=== PATIENT | female | born 1950 | race Caucasian/White ===

== ENCOUNTER 2018-06-17 12:18 | Outpatient (REF) | payer MEDICARE, BC, SELFPAY ==
--- NOTE | 2018-06-17 10:30 | PAPFT_PTH ---
PATIENT: Ángela Haines LOC: [facility] U#:[id number] AGE/SX: 67/F ROOM: RE06/17/[address]: SHELBY Dee : 1950 BED: DIS: 06/17/2018 SPEC #: [id number] RECD: 06/17/18 12:49 STATUS: VINODTigist REQ #: [id number] DIAMANTE: 06/17/18 10:[address]: Leslie Escobar DEPT: [facility] Cytology RECD BY: Makayla Calloway ENTERED: 06/17/18 12:50 SP TYPE: PAPFT OTHR DR: Jean Pierre Godfrey Tissues: 1 - CX/ENDOCX FOR PAP SMEARS Procedures: PAP THIN PREP/UVM Screening HPV DNA PROBE Comments: [id number]
== END 2018-06-17 12:38 ==
LOC: LBN 12:18
PROVIDERS: PCP Internal Medicine; Visit Provider Nurse Practitioner Family
DX: Z12.4 Encounter for screening for malignant neoplasm of cervix (principal); Z11.51 Encounter for screening for human papillomavirus (HPV)
CPT/HCPCS: 88142; 87624

== ENCOUNTER 2018-06-17 16:11 | Outpatient (CLI) | payer MEDICARE, BC, SELFPAY ==
--- NOTE | 2018-06-17 15:33 | DI.MAMMO_ITS ---
SYMPTOM/DIAGNOSIS: SCREENING MAMMOGRAMS: Mammograms were interpreted according to the usual protocol including computer analysis with CAD system, tomosynthesis and C view imaging. Comparison is made with exams from [facility] dated [id number]. The breasts are composed of heterogeneously dense fibroglandular tissue, breast density, Category C. No suspicious masses or suspicious microcalcifications are seen. There has been no significant change. IMPRESSION: Category 1, negative mammogram. Yearly screening mammography is recommended. [facility] ASSESSMENT OF FINDINGS: Negative. Category 1. Patient will receive a letter notifying them of these results. Bi-RADS category C. The breasts are heterogeneously dense, which may obscure small masses.
== END 2018-06-17 16:31 ==
PROVIDERS: PCP Internal Medicine; Visit Provider Nurse Practitioner Family
DX: Z12.31 Encounter for screening mammogram for malignant neoplasm of breast (principal)
CPT/HCPCS: 77063; 77067

== ENCOUNTER 2019-05-29 15:57 | Outpatient (REF) | payer MEDICARE, BC, SELFPAY ==
[2019-05-29 21:29] LABS: Abs Immature Grans 0.02 k/cumm (0.0-0.09); Absolute Basophil Count 0.04 k/cumm (0.0-0.2); Absolute Eosinophil Count 0.16 k/cumm (0.0-0.7); Absolute Lymphocyte Count 2.31 k/cumm (1.2-3.4); Absolute Monocyte Count 0.55 k/cumm (0.11-0.7); Absolute Neutrophil Count 3.92 k/cumm (1.2-6.7); Basophils % 0.6; Eosinophils % 2.3; HCT 40.1 % (36.0-46.0); HGB 13.2 g/dL (12.0-15.5); Immature Grans % 0.3 %; Mean Corp. HGB Concentration 32.9 g/dL (32.0-36.0); Mean Corpuscular Hemoglobin 29.8 pg (27.0-33.0); Mean Corpuscular Volume 90.5 fL (80-95); Mean Platelet Volume 11.8 fL (8.0-11.0); Monocytes % 7.9; Neutrophils % 55.9; Platelet Count 252 x1000/uL (130-400); RBC 4.43 m/cumm (4.00-5.20); RBC Distribution Width 13.1 % (11.7-14.6)
[2019-05-29 21:47] LABS: Hemoglobin A1C 5.9 % (3.8-5.6)
[2019-05-29 21:56] LABS: Calculated LDL 106 mg/dL (<100); Cholesterol 184 mg/dL (<200); HDL Cholesterol 45 mg/dL (40-60); TSH (W/Ref FT4) 0.75 uIU/mL (0.36-3.74); Triglyceride 167 mg/dL (<150)
[2019-05-31 10:40] LABS: Hepatitis C Ab w Rflx HCV PCR Negative (Negative)
== END 2019-05-29 16:17 ==
LOC: NCHCN 15:57
PROVIDERS: PCP Internal Medicine; Visit Provider Nurse Practitioner Family
DX: R61 Generalized hyperhidrosis (principal); G47.00 Insomnia, unspecified; R73.09 Other abnormal glucose; G60.9 Hereditary and idiopathic neuropathy, unspecified; R06.83 Snoring; Z11.59 Encounter for screening for other viral diseases; E66.9 Obesity, unspecified; E55.9 Vitamin D deficiency, unspecified
CPT/HCPCS: 80061; 82306; 86803; 83036; 84443; 85025

== ENCOUNTER 2019-06-19 03:11 | Outpatient (CLI) | payer MEDICARE, BC, SELFPAY ==
--- NOTE | 2019-06-19 10:00 | NS.NUTBLAN_ITS ---
Ángela comes to office for Medical Nutrition Therapy for obesity. PMH: obesity, perpheral neuropathy, osteoporosis, insomnia, fatigue. Did not want to be weighed today. Wt 06/05/19: 189 lbs BMI: 31. IBW: 145 lbs. Estimated needs for weight loss: 3075-0565 kcal, 70-80 g. protein. Diet recall indicates average calorie intake 1316-9422 kcal, 60-80 g protein. Reports that she has a treadmill but does not like to exercise. 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 She does not take any prescription medications. Assessment/Intervention: Ángela has gained weight as is typical over the life span however her caloric intake is 500-1000 kcal above recommended for weight loss. Ángela reports frequent hunger if she does not eat large meals. Our session reviewed ways to reduce intake and spread out meals in day and increase lean protein and vegetables for satiety. We also reviewed ways she can incorporate exercise into her regime. She is seeing a therapist to help her with her lifestyle changes as she has been frustrated at her inability of following through with goals. At this time, Ángela is struggling to attain her personal weight/health goals due to lack of motivation. Plan: reduce amount of simple carbohydrates, increase lean protein and vegetable intake, exercise daily 30-60 min daily, follow up in 1month. face to face: 60 minutes
== END 2019-06-19 03:31 ==
PROVIDERS: PCP Internal Medicine; Visit Provider Family Medicine
DX: E66.8 Other obesity (principal); Z68.31 Body mass index [BMI] 31.0-31.9, adult; Z71.3 Dietary counseling and surveillance
CPT/HCPCS: 97802

== ENCOUNTER 2019-10-31 00:57 | Outpatient (CLI) | payer MEDICARE, BC, SELFPAY ==
--- NOTE | 2019-10-31 16:30 | DI.MAMMO_ITS ---
EXAM: MAMMO SCREENING CLINICAL HISTORY: screening TECHNIQUE: Mammograms were interpreted according to the usual protocol including computer analysis w [facility] CAD system, tomosynthesis and C-view imaging. COMPARISON: FINDINGS: Breasts are heterogeneously dense. No dominant mass or clumped microcalcification is identified in e ither breast. In comparison with prior examinations including May 2018, there is question of a foc al area nodularity the retroareolar portion of the right breast seen on MLO view measuring about 5 mi llimeters in. Spot compression view and breast ultrasound recommended for further evaluation. No ot her significant change seen. IMPRESSION: Additional mammographic views of the right breast and right breast ultrasound requested as described above. Category: BI-RADS Cat 0 - Assessment Incomplete: Need additional imaging evaluation Breast Density - Category C - Heterogeneously dense
== END 2019-10-31 01:17 ==
PROVIDERS: PCP Internal Medicine; Visit Provider Nurse Practitioner Family
DX: Z12.31 Encounter for screening mammogram for malignant neoplasm of breast (principal); R92.2 Inconclusive mammogram
CPT/HCPCS: 77063; 77067

== ENCOUNTER 2019-11-02 01:18 | Outpatient (CLI) | payer MEDICARE, BC, SELFPAY ==
--- NOTE | 2019-11-02 | DI.MAMMO_ITS ---
EXAM: MG MAMMO SCREEN CALL BACK UNI CLINICAL HISTORY: F/U MAMMO, FOCAL NODULARITY RETROAREOLAR AREA RT BREAST TECHNIQUE: Mammograms were interpreted according to the usual protocol including computer analysis w [employer] CAD system, tomosynthesis and C-view imaging. COMPARISON: FINDINGS: Additional mammographic views the right breast and right breast ultrasound are interpreted in conjunc tion. These examinations were obtained to evaluate questionable area of nodularity projected in the retroareolar portion of the right breast in 12 o'clock position on MLO view of recent mammogram. Add itional mammographic views fail to show a discrete mass. Breast ultrasound shows no evidence of a ma ss or cyst. IMPRESSION: No specific evidence of malignancy at this time. Follow-up unilateral right breast mammogram recomme nded in 6 months. Category: BI-RADS Cat 3 - 6 month - Probably Benign Finding: Recommend follow-up mammography in 6 months Breast Density - Category C - Heterogeneously dense
== END 2019-11-02 01:38 ==
PROVIDERS: PCP Internal Medicine; Visit Provider Nurse Practitioner Family
DX: Z12.31 Encounter for screening mammogram for malignant neoplasm of breast (principal); R92.8 Other abnormal and inconclusive findings on diagnostic imaging of breast; R92.2 Inconclusive mammogram
CPT/HCPCS: 76642; 77063; 77067

== ENCOUNTER 2020-04-30 00:58 | Outpatient (CLI) | payer MEDICARE, BC, SELFPAY ==
--- NOTE | 2020-04-30 06:45 | DI.MAMMO_ITS ---
EXAM: MG MAMMO DIAGNOSTIC UNI CLINICAL HISTORY: 6 mo f/u right breast mammogram,R92.8. TECHNIQUE: Craniocaudal and mediolateral oblique Full Field Digital Mammography views of the right b reast with Computer Aided Diagnosis followed by Tomosynthesis. COMPARISON: Priors available for comparison. FINDINGS: Mammography/Tomosynthesis: Masses/Architectural Distortion: None seen. Microcalcifictions: No suspicious pleomorphic-type are seen. Skin Thickening/Nipple Retraction: None. IMPRESSION: 1. No evidence of malignancy is noted. 2. Unless there is more urgent need, follow-up screening mammography is recommended, as per [employer] guidelines. 3. The findings were discussed with the patient on the date of the examination. BI-RADS Category 1 - Negative Breast Density - Category C - Heterogeneously dense Breast density Category C or D implies that the patient has dense breast tissue. Dense breast tissue can make it harder to find cancer on a mammogram. Dense breast tissue is also associated with an incr eased risk of breast cancer. This information about the result of the mammogram report was provided to the patient to raise their awareness. Use this report when you speak with the patient about their risks for breast cancer, which includes their family history. At that time, you may recommend additional screening tests (Ultrasoun d or MRI) as these tests may add significant information. A negative radiographic report should not delay biopsy if a dominant or clinically suspicious mass is present. Up to ten percent of cancers are not identified on mammography. A negative report may reinforce clinical impression. Adenosis and dense breasts may obscure an underlying neoplasm. False positive reports average 6 to 10%. Patient will receive a letter notifying them of these results.
== END 2020-04-30 00:59 | disposition home or self-care (01) ==
LOC: DI 00:59
PROVIDERS: PCP Internal Medicine; Visit Provider Nurse Practitioner Family
DX: R92.8 Other abnormal and inconclusive findings on diagnostic imaging of breast (principal); R92.2 Inconclusive mammogram
CPT/HCPCS: 77061; 77065; G0279

== ENCOUNTER 2020-07-08 09:20 | Outpatient (CLI) | payer MEDICARE, BC, SELFPAY ==
--- NOTE | 2020-07-08 08:00 | DI.RAD_ITS ---
EXAM: XR KNEE RT 3V AP,LAT,LENIN CLINICAL HISTORY: knee pain. TECHNIQUE: 2D digital imaging was performed. COMPARISON: No exams were available for comparison FINDINGS: There is no evidence of fracture nor prominent joint effusion. No joint space narrowing. However, t here is a calcified loose intra-articular body located posteriorly, measuring approximately 1.3 x 0.8 cm. This is in the mid posterior intercondylar notch region. Visualize femoral condyles appear unremarkable. IMPRESSION: No fractures nor obvious degenerative changes in the medial and compartments. For, there is some rere rowing of patellofemoral compartment. Also loose intra-articular body posteriorly measuring 13 x 8 millimeters. There is no prominent join t effusion. DATA REPOSITORY: RADIATION DOSE DELIVERED:
--- NOTE | 2020-07-08 08:00 | DI.RAD_ITS ---
EXAM: XR KNEE LT 3V AP,LAT,LENIN CLINICAL HISTORY: knee pain. TECHNIQUE: 2D digital imaging was performed. COMPARISON: No exams were available for comparison FINDINGS: There is no evidence of fracture although there does appear to be a small amount of increased joint f luid. This may signify an internal derangement. No prominent joint space narrowing evident in the m edial lateral compartments. There appears to be some joint space narrowing in the patellofemoral com partment. No osseous lesions. Bone density is age-appropriate. IMPRESSION: DATA REPOSITORY: RADIATION DOSE DELIVERED:
--- NOTE | 2020-07-08 08:37 | DI.RAD_ITS ---
EXAM: XR KNEES MERCHANT ONLY CLINICAL HISTORY: Knee pain. TECHNIQUE: 2D digital imaging was performed. COMPARISON: CR XR KNEE RT 3V AP,LAT,LENIN from 07/08/2020 FINDINGS: Single merchant's view reveals significant narrowing of the patellofemoral compartments of both knees , approximately equal bilaterally. Three views of the left knee reveal no evidence of fracture. Mild increased amount of joint fluid. There is no narrowing of the medial lateral compartments. Narrowing of the patellofemoral compartmen t noted. There is no loose intra-articular body in the left knee evident IMPRESSION: 1. There is significant narrowing of both patellofemoral compartments, as seen on the merchant's view . 2. Mild degenerative changes in the left knee. There is no evidence of calcified loose intra-articul ar body in the left knee (as is seen in the opposite-right knee). No ominous osseous lesions DATA REPOSITORY: RADIATION DOSE DELIVERED:
== END 2020-07-08 09:21 | disposition home or self-care (01) ==
LOC: DIORS 09:20
PROVIDERS: PCP Internal Medicine; Referring Provider Nurse Practitioner Family; Visit Provider Student in an Organized Health Care Education/Training Program
DX: M17.11 Unilateral primary osteoarthritis, right knee (principal); M17.12 Unilateral primary osteoarthritis, left knee; M25.561 Pain in right knee; M25.562 Pain in left knee; M23.41 Loose body in knee, right knee
CPT/HCPCS: 20610; 73562; 73565; J1040

== ENCOUNTER 2020-10-07 11:56 | Outpatient (REF) | payer MEDICARE, BC, SELFPAY ==
--- NOTE | 2020-10-07 11:30 | PAPFT_PTH ---
PATIENT: Ángela Haines LOC: [facility] U#:[id number] AGE/SX: 70/F ROOM: RE10/07/[address]: SHELBY Dee : 1950 BED: DIS: 10/07/2020 SPEC #: [id number] RECD: 10/07/20 12:49 STATUS: JESSICA REQ #: [id number] DIAMANTE: 10/07/20 11:[address]: Leslie Escobar DEPT: [facility] Cytology RECD BY: Makayla Calloway ENTERED: 10/07/20 12:49 SP TYPE: PAPFT OTHR DR: Jean Pierre Godfrey Tissues: 1 - CX/ENDOCX FOR PAP SMEARS Procedures: PAP THIN PREP/UVM Screening HPV DNA PROBE Comments: [id number]
== END 2020-10-07 11:57 | disposition home or self-care (01) ==
LOC: LBN 11:56
PROVIDERS: PCP Internal Medicine; Visit Provider Nurse Practitioner Family
DX: Z12.4 Encounter for screening for malignant neoplasm of cervix (principal); Z77.9 Other contact with and (suspected) exposures hazardous to health; Z11.51 Encounter for screening for human papillomavirus (HPV); Z01.419 Encounter for gynecological examination (general) (routine) without abnormal findings
CPT/HCPCS: 88142; 87624

== ENCOUNTER 2020-10-31 01:53 | Outpatient (CLI) | payer MEDICARE, BC, SELFPAY ==
--- NOTE | 2020-10-31 11:00 | DI.MAMMO_ITS ---
Exam(s) MAMMO SCREENING EXAM: MAMMO SCREENING CLINICAL HISTORY: screening,Z12.39. TECHNIQUE: Bilateral full field digital CC and MLO mammographic images were obtained with 3D tomosyn thesis and utilizing computer aided detection (CAD). COMPARISON: Prior mammograms dating back to 2013, the most recent being October 2019 and diagnostic r ight breast mammogram April 2020. Prior breast ultrasound performed October 2019 was reviewed FINDINGS: Fibroglandular tissue is again noted be moderately dense, this decreasing the sensitivity of the mamm ogram for finding hidden underlying lesions. There are no new obvious spiculated masses nor malignant-appearing microcalcification groups. There is no significant architectural distortion nor skin thickening-retraction. IMPRESSION: Dense bilateral fibroglandular tissue. No obvious radiographic evidence of malignancy. Given the density of this patient's fibroglandular tissue I recommend bilateral complete breast scree luis ultrasound. BI-RADS Category 0 - Assessment Incomplete: Need additional imaging evaluation Breast Density - Category C - Heterogeneously dense Breast density Category C or D implies that the patient has dense breast tissue. Dense breast tissue can make it harder to find cancer on a mammogram. Dense breast tissue is also associated with an incr eased risk of breast cancer. This information about the result of the mammogram report was provided to the patient to raise their awareness. Use this report when you speak with the patient about their risks for breast cancer, which includes their family history. At that time, you may recommend additional screening tests (Ultrasoun d or MRI) as these tests may add significant information. A negative radiographic report should not delay biopsy if a dominant or clinically suspicious mass is present. Up to ten percent of cancers are not identified on mammography. A negative report may reinforce clinical impression. Adenosis and dense breasts may obscure an underlying neoplasm. False positive reports average 6 to 10%. Patient will receive a letter notifying them of these results.
== END 2020-10-31 02:13 ==
PROVIDERS: PCP Internal Medicine; Visit Provider Nurse Practitioner Family
DX: Z12.31 Encounter for screening mammogram for malignant neoplasm of breast (principal); R92.8 Other abnormal and inconclusive findings on diagnostic imaging of breast
CPT/HCPCS: 77063; 77067

== ENCOUNTER → 2020-11-25 08:55 | Outpatient (BNVA) | payer MEDICARE, BC, SELFPAY | PROVIDERS: PCP Internal Medicine; Referring Provider Internal Medicine; Visit Provider Student in an Organized Health Care Education/Training Program | DX: M17.0 Bilateral primary osteoarthritis of knee (principal) | CPT/HCPCS: 99214 ==

== ENCOUNTER 2020-12-06 04:38 | Outpatient (CLI) | payer MEDICARE, BC, SELFPAY ==
--- NOTE | 2020-12-06 | DI.US_ITS ---
Exam(s) US BREAST RT COMPLETE EXAM: US BREAST RT COMPLETE CLINICAL HISTORY: F/U MAMMO 10/31/20, DENSE AMMON BREAST TISSUE TECHNIQUE: Ultrasound right breast performed using standard protocol. COMPARISON: No exams were available for comparison FINDINGS: No solid or cystic masses, hypoechoic foci, areas of abnormal shadowing, or areas of skin thickening. Normal axillary lymph nodes. IMPRESSION: No sonographically suspicious finding. BI-RADS Category 1 - Negative DATA REPOSITORY:
--- NOTE | 2020-12-06 | DI.US_ITS ---
Exam(s) US BREAST LT COMPLETE EXAM: US BREAST LT COMPLETE CLINICAL HISTORY: F/U MAMMO 10/31/20, DENSE AMMON TISSUE TECHNIQUE: Ultrasound left breast performed using standard protocol. COMPARISON: US US BREAST RT COMPLETE from 12/06/2020 US US BREAST RT COMPLETE from 12/06/2020 FINDINGS: No solid masses, hypoechoic foci, areas of abnormal shadowing, or areas of skin thickening. 3 millim eters cyst 1 o'clock position 4 cm from the nipple. Normal appearing axillary lymph nodes. IMPRESSION: No sonographically suspicious finding. BI-RADS Category 2 - Benign Findings DATA REPOSITORY:
== END 2020-12-06 04:58 ==
PROVIDERS: PCP Internal Medicine; Visit Provider Nurse Practitioner Family
DX: R92.8 Other abnormal and inconclusive findings on diagnostic imaging of breast (principal)
CPT/HCPCS: 76642

== ENCOUNTER → 2021-02-25 12:55 | Outpatient (BNVA) | payer MEDICARE, BC, SELFPAY | PROVIDERS: PCP Internal Medicine; Referring Provider Internal Medicine | DX: Z01.818 Encounter for other preprocedural examination (principal); M17.0 Bilateral primary osteoarthritis of knee ==

== ENCOUNTER 2021-03-03 02:47 | Outpatient (CLI) | payer MEDICARE, BC, SELFPAY ==
[2021-03-03 09:48] LABS: HCT 40.3 % (36.0-46.0); HGB 12.8 g/dL (11.2-15.7); MCH 29.2 pg (27.0-33.0); MCHC 31.8 % (32.0-36.0); MPV 10.5 fL (8.0-11.0); Platelet Count 326 10^3/uL (130-400); RBC 4.38 10^6/uL (3.93-5.22); RDW 12.6 % (11.7-14.6); RDW-SD 42.6 fL; WBC 8.15 10^3/uL (4.4-10.8)
[2021-03-03 10:40] LABS: Anion Gap 11.3 mmol/L (3-11); BUN 25 mg/dL (7-18); CO2 28.7 mmol/L (21.0-32.0); CREATININE 0.9 mg/dL (0.55-1.02); Calcium 8.8 mg/dL (8.5-10.1); Chloride 105 mmol/L (98-107); Glucose 110 mg/dL (74-106); Potassium 3.7 mmol/L (3.5-5.1); Sodium 145 mmol/L (136-145)
== END 2021-03-03 02:48 | disposition home or self-care (01) ==
LOC: LBO 02:47
PROVIDERS: PCP Internal Medicine; Visit Provider Student in an Organized Health Care Education/Training Program
DX: M17.0 Bilateral primary osteoarthritis of knee (principal); Z01.818 Encounter for other preprocedural examination
CPT/HCPCS: 36415; 80048; 85027

== ENCOUNTER 2021-03-03 03:10 | Outpatient (CLI) | payer MEDICARE, BC, SELFPAY ==
[2021-03-03 10:27] LABS: Source Nasal/Nares
[2021-03-03 14:19] LABS: COVID-19 PCR Negative (Negative)
== END 2021-03-03 03:11 | disposition home or self-care (01) ==
LOC: LBO 03:11
PROVIDERS: PCP Internal Medicine; Visit Provider Student in an Organized Health Care Education/Training Program
DX: Z20.822 Contact with and (suspected) exposure to COVID-19 (principal)
CPT/HCPCS: 36415; 80048; 85027; 87635

== ENCOUNTER 2021-03-05 07:56 | Day surgery (SDC) | payer MEDICARE, BC, SELFPAY ==
[2021-03-05] VITALS (11 sets, daily range): BP systolic 125–178; BP diastolic 71–93; PULSE 69–88; RESP 11–20; TEMP 36–36.9; O2SAT 93–98; BMI 31.8
--- NOTE | 2021-03-05 07:42 | W.PM.DS.N ---
Documented by User: GREGORY Cope 03/05/21 07:45 DS: Diagnosis Discharge Diagnosis (1) 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: Status: Acute Discharge Plan Disposition Patient Disposition: HOME Condition: Stable Discharge Details Reason For Visit: Bilateral Patella Femoral Replacements Attending Provider: Ernesto Valero Primary Care Provider: Jean Pierre Godfrey Home Meds and New Rx's Prescriptions: New celecoxib [Celebrex] 200 mg capsule 200 mg PO BID Qty: 60 RF: 0 aspirin 81 mg tablet,delayed release (DR/EC) 81 mg PO BID Qty: 60 RF: 0 pantoprazole [Protonix] 40 mg tablet,delayed release (DR/EC) 40 mg PO DAILY Qty: 30 RF: 0 gabapentin 300 mg capsule 300 mg PO QHS Qty: 14 RF: 0 acetaminophen 500 mg capsule 1,000 mg PO Q8H PRN PRNQty: 90 RF: 0 oxycodone 5 mg tablet 5 mg PO Q4H PRNQty: 18 RF: 0 Continued acetylcysteine [NAC] 600 mg capsule 600 mg PO DAILY RF: 0 cannabidiol 100 mg/mL solution See Rx Instructions PO BID RF: 0 estradiol [Estrace] 0.01 % (0.1 mg/gram) cream 1 g vaginal .COMPLEX Qty: 42.5 RF: 4 magnesium chloride 64 mg tablet,delayed release (DR/EC) 64 mg PO DAILY RF: 0 cholecalciferol (vitamin D3) [Vitamin D3] 1,000 UNIT capsule 1,000 unit PO DAILY RF: 0 Discontinued aspirin 81 mg capsule 81 mg PO DAILY RF: 0 Discharge Instructions Additional Instructions: Total Knee Discharge Instructions Activity: The most important activity is to walk. You should try to take short walks a few times a day. It is important that when resting you work on keeping the knee straight. Avoid putting a pillow behind the knee as this will encourage flexion. Work on range of motion exercises as provided by Physical Therapy. - Start outpatient physical therapy around 2 weeks. - You should wear the CRAIG hose on both legs for 2 weeks. You may remove these at night. You may also use any compression sock in place of the CRAIG hose. - Utilize [employer] to review exercises, see videos on exercises and obtain basic information pertaining to your surgery and your recovery. Dressing: Remove the Thom wrap by 2 days after your surgery and put on the CRAIG stocking given to you from the hospital. Keep the surgical dressing (underneath the THOM wrap) in place for at least one week although it may stay in place until your follow-up. If you remove the dressing, replace with light gauze and tape. The wound and dressing may get wet after 3 days but avoid soaking the dressing or otherwise it will need to be changed. Many people prefer covering the dressing with cling wrap (saran wrap) to minimize it from getting soaked. If it gets wet, just pat dry. If it starts to peel off then it will need to be changed. Medications: - You should take Tylenol and anti-inflammatory Celebrex as your primary pain control medications. If the Celebrex is too expensive or not covered, please call the office for another alternative (Advil/Ibuprofen or Naproxen/Aleve) - You have been prescribed a stronger pain medication Oxycodone for breakthrough pain, take as needed as prescribed. - You have also been prescribed a stomach acid reduction agent Pantoprozole to help reduce stomach acid and reflux. - You have been prescribed Gabapentin to take at night for restlessness and nerve pain. - You will be taking Aspirin 81mg twice a day for DVT prevention unless instructed otherwise. - If you have constipation you should take Colace or Miralax (both judp-qzp-ejtzpza). It takes most people 3-4 days to have a bowel movement. Follow-up: 2 weeks If you have any acute concerns or questions, please do not hesitate to contact the office at [phone]. You may contact Dr. Valero with any questions after hours through the hospital at [phone] or on his cell phone at [phone]. 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) Surgical History Bone spur of posterior portion of right calcaneus around 18 yo History of salpingectomy for ectopic Hx of hernia repair ?ventral hernia Previous section x 2 Status post right rotator cuff repair 2010 Status post tonsillectomy late 1990s Family History Mother Colon cancer Father Alzheimers disease Valvular heart disease Social History Smoking/Tobacco Use Status: Never Smoking risk assessment performed?: Yes Alcohol Intake: never Drug use: Daily Substance use type: marijuana Details: makes edibles; CBD oil daily 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 Documented by User: Ernesto Valero MD 03/05/21 14:29 Discharge Plan Disposition Patient Disposition: HOME Condition: Stable Discharge Details Reason For Visit: Bilateral Patella Femoral Replacements Attending Provider: Ernesto Valero Primary Care Provider: Jean Pierre Godfrey [place] Meds and New Rx's Prescriptions: New celecoxib [Celebrex] 200 mg capsule 200 mg PO BID Qty: 60 RF: 0 aspirin 81 mg tablet,delayed release (DR/EC) 81 mg PO BID Qty: 60 RF: 0 pantoprazole [Protonix] 40 mg tablet,delayed release (DR/EC) 40 mg PO DAILY Qty: 30 RF: 0 gabapentin 300 mg capsule 300 mg PO QHS Qty: 14 RF: 0 acetaminophen 500 mg capsule 1,000 mg PO Q8H PRN PRNQty: 90 RF: 0 oxycodone 5 mg tablet 5 mg PO Q4H PRNQty: 18 RF: 0 Continued acetylcysteine [NAC] 600 mg capsule 600 mg PO DAILY RF: 0 cannabidiol 100 mg/mL solution See Rx Instructions PO BID RF: 0 estradiol [Estrace] 0.01 % (0.1 mg/gram) cream 1 g vaginal .COMPLEX Qty: 42.5 RF: 4 magnesium chloride 64 mg tablet,delayed release (DR/EC) 64 mg PO DAILY RF: 0 cholecalciferol (vitamin D3) [Vitamin D3] 1,000 UNIT capsule 1,000 unit PO DAILY RF: 0 Discontinued aspirin 81 mg capsule 81 mg PO DAILY RF: 0 Discharge Instructions Additional Instructions: Total Knee Discharge Instructions Activity: The most important activity is to walk. You should try to take short walks a few times a day. It is important that when resting you work on keeping the knee straight. Avoid putting a pillow behind the knee as this will encourage flexion. Work on range of motion exercises as provided by Physical Therapy. - Start outpatient physical therapy around 2 weeks. - You should wear the CRAIG hose on both legs for 2 weeks. You may remove these at night. You may also use any compression sock in place of the CRAIG hose. - Utilize [employer] to review exercises, see videos on exercises and obtain basic information pertaining to your surgery and your recovery. Dressing: Remove the Thom wrap by 2 days after your surgery and put on the CRAIG stocking given to you from the hospital. Keep the surgical dressing (underneath the THOM wrap) in place for at least one week although it may stay in place until your follow-up. If you remove the dressing, replace with light gauze and tape. The wound and dressing may get wet after 3 days but avoid soaking the dressing or otherwise it will need to be changed. Many people prefer covering the dressing with cling wrap (saran wrap) to minimize it from getting soaked. If it gets wet, just pat dry. If it starts to peel off then it will need to be changed. Medications: - You should take Tylenol and anti-inflammatory Celebrex as your primary pain control medications. If the Celebrex is too expensive or not covered, please call the office for another alternative (Advil/Ibuprofen or Naproxen/Aleve) - You have been prescribed a stronger pain medication Oxycodone for breakthrough pain, take as needed as prescribed. - You have also been prescribed a stomach acid reduction agent Pantoprozole to help reduce stomach acid and reflux. - You have been prescribed Gabapentin to take at night for restlessness and nerve pain. - You will be taking Aspirin 81mg twice a day for DVT prevention unless instructed otherwise. - If you have constipation you should take Colace or Miralax (both bafd-fly-dcaizau). It takes most people 3-4 days to have a bowel movement. Follow-up: 2 weeks If you have any acute concerns or questions, please do not hesitate to contact the office at [phone]. You may contact Dr. Valero with any questions after hours through the hospital at [phone] or on his cell phone at [phone]. Stand Alone Forms: Anesthesia Discharge Inst., Vandanas.Nerve Block Instructions Referrals: Ernesto Valero MD [ [facility] STAFF PHYSICIAN] - Equipment/Supplies: Walker Activity:: Activity as Tolerated Remove Dressings/Wound Care:: Do Not Remove Shower/Bathe:: 72 hours Diet:: As Tolerated Discharge Orders Discharge Orders: Discharge Order (Routine); Ordered 03/05/21 Ordered By: Ernesto Valero DS: Summary Time Spent with Patient providing and/or coordinating discharge services: Less than 30 minutes Status at Discharge Functional status at discharge: uses cane/walker Overall status at discharge: patient is progressing back to baseline Mental Status: mental status grossly normal Speech and Movement: speech and movement normal Mood: congruent mood Affect: normal affect Exam Psych Mental Status: mental status grossly normal Speech and Movement: speech and movement normal Mood: congruent mood Affect: normal affect [facility] Active Problem List 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 (Acute) Neuropathy (Acute) 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) Surgical History Bone spur of posterior portion of right calcaneus around 18 yo History of salpingectomy for ectopic Hx of hernia repair ?ventral hernia Previous section x 2 Status post right rotator cuff repair 2009 Status post tonsillectomy late 1990s Family History Mother Colon cancer Father Alzheimers disease Valvular heart disease Social History Smoking/Tobacco Use Status: Never Smoking risk assessment performed?: Yes Alcohol Intake: never Drug use: Daily Substance use type: marijuana Details: makes edibles; CBD oil daily 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
[2021-03-05] MEDS: Acetaminophen 500 MG TAB 1000 MG PO ×2 (08:29→15:39)
[2021-03-05] MEDS: Celecoxib 200 MG CAP 400 MG PO (08:29)
[2021-03-05] MEDS: Lactated Ringers 1,000 ML 80 ML IV (08:30)
[2021-03-05] MEDS: Gabapentin 300 MG CAP PO (08:31)
--- NOTE | 2021-03-05 08:52 | W.ANESPRE ---
General Info Date of Service Date Performed: 03/05/21 Height: 5 ft 5 in Weight: 86.8 kg Body Mass Index (BMI): 31.8 Surgical Procedure: Operation Date: 03/05/21 10:30 Proposed Procedures Side Surgeon p Knee Patellofemoral Replacement Bilateral Ernesto Valero MD Meds Allergies and Home Medications Allergies Allergy/AdvReac Type Severity Reaction Status Date / Time No Known Allergies Allergy Verified 03/05/21 07:49 Home Medication Medication Instructions Recorded cholecalciferol (vitamin D3) 1,000 unit PO DAILY 10/16/15 [Vitamin D3] cannabidiol 100 mg/mL oral solution See Rx Instructions PO BID ml 06/17/18 estradiol 1 g VAGINAL .COMPLEX #42.5 g 10/07/20 acetylcysteine 600 mg capsule 600 mg PO DAILY 11/25/20 magnesium chloride 64 mg 64 mg PO DAILY 02/25/21 (magnesium chloride) tablet,delayed release acetaminophen 1,000 mg PO Q8H PRN PRN #90 cap 03/05/21 aspirin 81 mg PO BID #60 tab 03/05/21 celecoxib [Celebrex] 200 mg PO BID #60 cap 03/05/21 gabapentin 300 mg PO QHS #14 cap 03/05/21 oxycodone 5 mg PO Q4H PRN #18 tab 03/05/21 pantoprazole [Protonix] 40 mg PO DAILY #30 tab 03/05/21 Current Visit Medications: Current Medications Generic Name Dose Route Start Last Admin Trade Name Freq PRN Reason Stop Dose Admin Acetaminophen 1,000 mg 03/05/21 06:00 03/05/21 08:29 Acetaminophen 500 Mg Tab PO 03/05/21 16:00 1,000 mg PREOP ALEKSEY Administration Acetaminophen 1,000 mg 03/05/21 14:00 Acetaminophen 500 Mg Tab PO TID ALEKSEY Aspirin 81 mg 03/05/21 20:00 Aspirin E.C. 81 Mg Tabec PO BID ALEKSEY Celecoxib 400 mg 03/05/21 06:00 03/05/21 08:29 Celecoxib 200 Mg Cap PO 03/05/21 16:00 400 mg PREOP ALEKSEY Administration Celecoxib 200 mg 03/05/21 20:00 Celecoxib 200 Mg Cap PO BID ALEKSEY Docusate Sodium 100 mg 03/05/21 07:41 Docusate Sodium 100 Mg Cap PO BID PRN PRN Constipation Gabapentin 300 mg 03/05/21 22:00 Gabapentin 300 Mg Cap PO HS ALEKSEY Gabapentin 300 mg 03/05/21 07:00 03/05/21 08:31 Gabapentin 300 Mg Cap PO 03/05/21 23:59 300 mg PREOP ALEKSEY Administration Hydromorphone HCl 0.5 mg 03/05/21 07:41 Hydromorphone 2 Mg/Ml Vial IVP Q2H PRN PRN Tranexamic Acid 1,000 mg/ 60 mls @ 360 mls/hr 03/05/21 06:00 Sodium Chloride IV 03/05/21 16:00 PREOP ALEKSEY Tranexamic Acid 1,000 mg/ 60 mls @ 360 mls/hr 03/05/21 06:00 Sodium Chloride IV 03/05/21 16:00 DIRECTED ALEKSEY Ringer's Solution 1,000 mls @ 80 mls/hr 03/05/21 06:00 03/05/21 08:30 IV 04/03/21 23:59 80 mls/hr INFUSION ALEKSEY Administration Cefazolin Sodium/Dextrose 2 gm in 50 mls @ 100 mls/hr 03/05/21 06:00 Ancef Duplex IVPB 04/03/21 23:59 PREOP ALEKSEY Cefazolin Sodium/Dextrose 1 gm in 50 mls @ 100 mls/hr 03/05/21 18:00 Ancef Duplex IVPB 03/06/21 10:29 Q8H ALEKSEY IV Miscellaneous Supplies 1 each 03/05/21 06:00 Iv Access IV 04/03/21 23:59 DIRECTED ALEKSEY Ondansetron HCl 4 mg 03/05/21 07:41 Ondansetron 4 Mg/2 Ml Vial IVP Q6H PRN PRN Nausea Oxycodone HCl 0 mg 03/05/21 07:41 Oxycodone 5 Mg Tab PO Q3H PRN PRN Pain Pantoprazole Sodium 40 mg 03/06/21 08:00 Pantoprazole 40 Mg Tabcr PO DAILY@0730 ALEKSEY Sodium Chloride 0 ml 03/05/21 06:00 Normal Saline Flush 10 Ml Syr IV 04/03/21 23:59 PRN PRN Sodium Chloride 0 ml 03/05/21 06:00 Normal Saline 10 Ml Vial IJ 04/03/21 23:59 DIRECTED PRN Sterile Water 0 ml 03/05/21 06:00 Water,Injection,Sterile 10 Ml Vial IJ 04/03/21 23:59 DIRECTED PRN PFSH Active Problems Active Problems: Problem Status Onset Code 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 M17.0 Neuropathy G62.9 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 Medical History Active Problem List 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 (Acute) Neuropathy (Acute) 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) Surgical History Surgical History Bone spur of posterior portion of right calcaneus around 18 yo History of salpingectomy for ectopic Hx of hernia repair ?ventral hernia Previous section x 2 Status post right rotator cuff repair 2010 Status post tonsillectomy late Tobacco Smoking/Tobacco Use Status: Never Alcohol Alcohol Intake: never Substance Use Substance use: Daily Substance use type: marijuana Details: makes edibles; CBD oil daily Vital Signs and Lab Results Vital Signs Most Recent Vital Signs in EMR: Most Recent Vital Signs Temp Pulse Resp BP Pulse Ox 36.6 C 88 18 147/78 H 97 03/05/21 08:00 03/05/21 08:00 03/05/21 08:00 03/05/21 08:00 03/05/21 08:00 Lab Results Blood Type / Crossmatch: No Data to Display Complete Blood Count: White Blood Count 8.15 10^3/uL (4.4-10.8) 03/03/21 09:23 03/03/21 Red Blood Count 4.38 10^6/uL (3.93-5.22) 03/03/21 09:23 03/03/21 Hemoglobin 12.8 g/dL (11.2-15.7) 03/03/21 09:23 03/03/21 Hematocrit 40.3 % (36.0-46.0) 03/03/21 09:23 03/03/21 Platelet Count 326 10^3/uL (130-400) 03/03/21 09:23 03/03/21 Complete Metabolic Panel: Sodium Level 145 mmol/L (136-145) 03/03/21 09:23 03/03/21 Potassium Level 3.7 mmol/L (3.5-5.1) 03/03/21 09:23 03/03/21 Chloride Level 105 mmol/L (98-107) 03/03/21 09:23 03/03/21 Carbon Dioxide Level 28.7 mmol/L (21.0-32.0) 03/03/21 09:23 03/03/21 Blood Urea Nitrogen 25 mg/dL (7-18) H 03/03/21 09:23 03/03/21 Creatinine 0.9 mg/dL (0.55-1.02) 03/03/21 09:23 03/03/21 Estimated GFR/1.73 m2 >= 60.00 (mL/min/1.73m2) 03/03/21 09:23 03/03/21 Calcium Level 8.8 mg/dL (8.5-10.1) 03/03/21 09:23 03/03/21 Glucose Level 110 mg/dL (74-106) H 03/03/21 09:23 03/03/21 Liver Function Panel: No Data to Display Coagulation Panel: No Data to Display Cardiac Panel: No Data to Display Arterial Blood Gas: No Data to Display Venous Blood Gas: No Data to Display Pancreas Panel: No Data to Display Thyroid Panel: No Data to Display Infectious Disease: Coronavirus (COVID-19)(PCR) Negative (Negative) 03/03/21 10:07 03/03/21 Coronavirus 2019 Source Nasal/Nares 03/03/21 10:07 03/03/21 Blood Cultures: No Data to Display Toxicology Panel: No Data to Display Anesthesia Assessment and Plan Anesthesia History Personal History: No History of Anesthesia Complications Family History: No Family History of Anesthesia Complications Exercise Tolerance Exercise Tolerance: Metabolic Equivalents>4 Pertinent Negatives Pertinent Negatives: No Symptoms of GERD, No Major Cardiovascular Symptoms or Complaints, No Major Pulmonary Symptoms or Complaints and No History of CVA/TIA Cardiac & Pulmonary Exam Cardiac Exam: Normal S1/S2 Heart Sounds Pulmonary Exam: Clear Bilateral Breath Sounds Implantable Cardiac Device Does patient have a Pacemaker or an ICD?: No Airway Exam Known Difficult Airway: No Mallampati Class: 3 Mouth Opening: Normal (> 3cm) Thyromental Distance: Greater than 3 cm Neck Range of Motion: Full ROM Neck Circumference: Normal Teeth Condition: Normal Dentition ASA Classification ASA Score: ASA 2 Emergency Case?: No NPO Status NPO Status: NPO Clears >2 hours, Solids >8 hours Anesthesia Plan Resuscitation Status: Full Code Anesthesia Technique: Spinal Anesthesia Airway Planned: Natural Airway Pain Management: Surgeon and patient request nerve block Monitors Used: Standard Monitors
--- NOTE | 2021-03-05 10:09 | W.ANESNERVE ---
Nerve Block Single Injection Procedure Date and Time Date Performed: 03/05/21 Procedure Start: 10:00 Location Where Procedure Performed Procedure Location: Day Surgery Unit Reason Performed: Postoperative Analgesia Requesting Provider: Ernesto Valero Timeout Performed Timeout Performed: Yes Monitoring Used ECG, Blood Pressure, SpO2 and ETCO2 Sterility Sterility: Hand Hygiene, Surgical Cap, Surgical Mask, Sterile Gloves and Chlorhexidine Sedation Given During Procedure Sedation Given (Indicate Dose Given): Versed IV Dose:: 4 mg Patient Mental Status Patient Mental Status: Sedate with meaningful communication Nerve Block 1st Nerve Block: Laterality: Bilateral Block Type: Adductor Canal Needle / Catheter Used: 100mm SonoPlex II Local Anesthetic Bolus (Indicate Dose Given): Lidocaine used for local infiltration of skin, Injected in 3-5ml increments after negative blood aspiration, Half of Total block solution given into each side and Bupivacaine 0.25% Dose:: 30 ml Additives (Indicate Dose Given): None Ultrasound: Sterile probe cover and gel used Ultrasound Image Saved?: Yes Nerve Stimulator: Not Used Paresthesia: None Post Procedure Pain score (0-10): 0 Procedure Tolerated: No Complications Procedure Outcome: Successful Performed By: Makenzie Alaniz Supervised By: Concetta Cat
[2021-03-05] MEDS: ceFAZolin 2 GM/50 ML BAG IVPB (10:58)
[2021-03-05] MEDS: Bupivacaine 0.25% Pres-Free 30 ML VIAL (12:15)
[2021-03-05] MEDS: Ketorolac 30 MG/ML VIAL (12:15)
--- NOTE | 2021-03-05 15:10 | IN_ITS ---
Date of service: 03/05/21 Time of Service: 15:10 PT Notes Visit Reasons: Bilateral Patella Femoral Replacements Physical Therapy Day Surgery Initial Evaluation Date: 03/05/2021 Referring Doctor: GREGORY Cope PT Orders: PT CONSULT: Status post Ortho surgery Precautions: WBAT on B LE with AD. Patient Profile/Admitting Diagnosis: Ángela is a 70-year-old female with osteoarthritis of bilateral patellofemoral joints and is status post bilateral patella femoral joint replacements on postoperative day 0. PMHX: Active Problem List (Updated 02/25/21 @ 13:21 by Arabella Moran) 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 (Acute) Neuropathy (Acute) 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) Surgical History (Updated 02/25/21 @ 13:25 by Arabella Moran) Bone spur of posterior portion of right calcaneus around 18 yo History of salpingectomy for ectopic Hx of hernia repair ?ventral hernia Previous section x 2 Status post right rotator cuff repair 2009 Status post tonsillectomy late Social History/Home Situation: Lives with in a private home with 3 steps to enter with a rail on 1 side. Independent with all aspects of the notes prior to surgery. 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 Equipment Owned/DME: None Subjective: Agreeable to PT consult. Reports dizziness but denies chest pain as well headache. Complains of 8?9/10 pain on the right knee but is agreeable to walking to see how weight bearing immobilization helps with the pain. Objective: General Observation: WILY wraps to BLE. Seated on chair. Cryocuff to both knees. Mental Status: Alert and oriented x4 Pain: 8?9/10 pain on the right knee in 5?8/10 pain on the left ROM: Right Lower Extremity: Hip flexion WFL. Hip abduction WFL. Knee flexion 10 degrees to 80 degrees. Knee extension -10 degrees with pain at end of range. Ankle dorsiflexion WFL. Ankle plantarflexion WFL. Left Lower Extremity: Hip flexion WFL. Hip abduction WFL. Knee flexion 0 degrees to 80 degrees. Knee extension 80 degrees to 0 degrees with pain at end of range. Ankle dorsiflexion WFL. Ankle plantarflexion WFL. Strength: Right Lower Extremity: Hip flexors 5/5. Hip abductors 4/5. Knee flexors 3-/5. Knee extensors 3-/5. Ankle dorsiflexors 5/5. Ankle plantarflexors 5/5. Left Lower Extremity: Hip flexors 5/5. Hip abductors 4/5. Knee flexors 3-/5. Knee extensors 3-/5. Ankle dorsiflexors 5/5. Ankle plantarflexors 5/5. Sensation: Intact as to pinprick pressure in bilateral lower extremities. Bed Mobility/Transfers: Supine to sit supervision Sit to stand standby assist Stand to sit standby assist Bed to chair standby assist Gait: Instructed patient with level surface ambulation using front wheeled walker with step through gait pattern requiring only standby assist despite patient reporting 8?9/10 pain on the right and 5?6/10 pain on the left knee and dizziness. No LOB. No shortness of breath. Minimal cueing provided to ensure patient about bending at both knees during swing phase of gait. Stairs: Negotiated up and down 6 x 4 inch steps and 4 x 6 inch steps while holding onto bilateral rails with step to gait pattern requiring minimal verbal cueing for safe technique. Standby assist provided. Patient was instructed to go up with the less painful knee and go down more painful knee to reduce fall risk. Balance: Static Sitting: Normal Dynamic Sitting: Normal Static Standing: Fair Dynamic Standing: Fair Special Tests: Mobility Limitations Standardized Measure [facility] AM-PAC 6 clicks Basic Mobility Inpatient Short Form: Raw Score: 24 CMS Score: 0% deficit Informed Consent/Education: Patient was instructed in purpose of PT consult. Education and training on initial set of exercises that can be done at home have been completed with patient. Reinforced use of the [employer] yanet for performance of safe postoperative exercises for the first 2 weeks. Assessment: Ángela is able to tolerate level surface ambulation and stair negotiation despite reported pain requiring standby assist only with a walker and while holding onto rails (for the steps). She will have the support of her that she recovers at home. Patient presents with clinical signs and sy mptoms consistent with current/admitting diagnoses that have resulted to mobility limitations, gait instability, generalized weakness, and impairment of motor control as demonstrated by the following impairment level findings: 1. Decreased strength to B knee major muscle groups 2. Impaired standing balance 3. Limitation of joint range of motion in B knees Impairments are contributing to the following functional limitations: 1. Inability to safely ambulate without assistive device 2. Increase completion time for mobility ADL performance 3. Increased fall risk Patient is assessed as a 31703 moderate complexity based on the following: History: 70-year-old female with impairment level findings, functional limitations, and past medical history as indicated above Examination: Demonstrable impairment in strength, balance, and mobility level with underlying impairments and functional limitations as documented above Presentation: Evolving Decision Makin moderate complexity Goals: N/A. PT evaluation and 1-2 treatment sessions only for functional mobility training using recommended AD and for HEP instruction. Plan of Care/Treatment Plan: N/A. PT evaluation and 1-2 treatment session only for functional mobility training using recommended AD and for HEP instruction. DISCHARGE RECOMMENDATIONS: [] Home with no services [] [X] Home with services. Home when medically cleared by orthopedic surgeon. Patient will from outpatient PT 0 to facilitate return to independent premorbid level without assistive device and facilitate return to full vocational activities. [] Home with outpatient PT [] [] SNF for continued rehabilitation [] [] Cath Lab Technologist Care [] [] SNF versus LTC based on ability to participate and progress [] TREATMENT CODE/TIME: 81293 x 20 minutes, 13063 x 12 minutes beginning at 15:10 PM. Thank you for the opportunity to participate in the care of this patient. Kiera Zhou PT, DPT, CLT [facility] [place], [place]
--- NOTE | 2021-03-05 15:40 | W.ANESPOSTOP ---
Postoperative Evaluation Date, Time and Location Date Performed: 03/05/21 Time Performed: 15:40 Patient Location: Day Surgery Unit Vital Signs Most Recent Imported Vital Signs: Most Recent Vital Signs Temp Pulse Resp BP Pulse Ox 36.3 C L 69 16 156/79 H 97 03/05/21 14:52 03/05/21 14:52 03/05/21 14:52 03/05/21 14:52 03/05/21 14:52 Pain Score Most Recent Pain Score: Most Recent Pain Score Pain Level 0 03/05/21 14:52 Assessment Mental Status: Awake (Alert & Oriented to Patient Baseline) Airway and Respiratory Function: Patent airway with normal (patient baseline) respiratory exam Cardiovascular Function: Hemodynamically Stable Hydration Status: Adequately Hydrated Nausea & Vomiting: No Nausea or Vomiting Pain: Pt. Denies Any Pain Peripheral Nerve Block: Regional nerve block not resolved at time of post operative discharge (Pain 0 on left, 8 on right ) Teaching Patient Teaching: Discussed Safe Use of Pain Medication Given Recent Anesthesia
--- NOTE | 2021-03-05 15:45 | ROE_ITS ---
Date of service: 03/05/21 Time of Service: 12:45 Operative Note Operative Note DATE OF PROCEDURE: 03/05/21 PRE-OP DIAGNOSIS: Bilateral Patellofemoral Arthritis POST-OP DIAGNOSIS: same PROCEDURE: Bilateral Patlleofemoral Replacement SURGEON: Ernesto Valero MARKETING TEACHER: Sydni Nava ANESTHESIA TYPE: Spinal Refer to Anesthesia Record ESTIMATED BLOOD LOSS: 50 PATHOLOGY: none sent TOURNIQUET TIME: 0 COMPLICATIONS: None Patient was transported to: PACU Patient's condition: stable Implants: RIGHT KNEE: 1. Arthrosurface Wave Trochlear Component, 10x4mm 2. Depuy Attune Patellar Button, 32mm LEFT KNEE: 1. Arthrosurface Wave Trochlear Component, 10x4mm 2. Depuy Attune Patellar Button, 32mm Indications: Mckayla is a 70 year old female who has had symptoms of bilateral patellofemoral arthritis. Conservative measures have been exhausted yet pain and dysfunction persisted. Please see office notes for complete details. Given the continued symptoms, I recommended a patellofemoral replacement. I reviewed the risks of the procedure to include bleeding, infection, pain, stiffness, worsening medial or lateral compartment arthritis, patellar instability, loosening, fracture, clot. Despite these risks, she elected to proceed. Findings: There was notable arthritic change within the patellofemoral compartment. The remainder of the knee did not show any extensive cartilage wear. The patella was tracking centrally after resurfacing of the joint. Procedure Description: Mckayla was greeted in the preoperative holding area where the correct side was identified and marked. The consent was reviewed with the patient and signed. The history and physical was updated. All questions were answered. Preoperative mediacations were administered: Acetaminophen 1000mg, Celebrex 400mg, and Gabapentin 300mg. An adductor canal block was then administered to both legs by the anesthesia team in the PACU. She was taken back to the operating room. A spinal anesthestic was then administered. The patient was placed into the supine position on the operating room table. A nonsterile tourniquet was placed high onto the leg but not used. Posts were placed for positioning during the procedure. All bony prominences were well padded. Prophylactic antibiotics in the form of Cefazolin were administered. 1g of Tranxemic Acid was given intravenously within 30 minutes of incision. Both legs were then prepped with Chloraprep and draped in a standard fashion with impervious stockinette and extremity drape. A second prep with Chloraprep was performed prior to placing Ioband for both knees. A timeout to confirm correct identity, side and site, procedure, allergies, anesthesia, and medical concerns was performed. LEFT KNEE With the knee in some flexion, a midline incision was made overlying the knee. Full thickness skin flaps were raised once the extensor mechanism was encounter ed. These were raised medially and laterally. Any bleeding was controlled with electrocautery. Once the extensor mechanism was fully exposed, a medial parapatellar arthrotomy was performed in a flexed position. All bleeding from the arthrotomy and the geniculate arteries was coagulated. The menisci and intrameniscal ligament was preserved. The Arthrosurface patellofemoral trial was then placed in the appropriate position and a single guidewire was placed through the center of this device. This was confirmed to be in appropriate location using the targeting arm. The trochlea was then sized in both directions corresponding to an 10x4. The initial reamer was then placed and taken down to appropriate depth. The reaming and drill guide was then placed within this recess and secured with pins. Using both the centralized reamer and the edge reamer, the trochlear recess was prepared. The guide was removed and the edges were curetted for completeness. The central hole was then prepared with a drill and a tap. The outer surface screw was then inserted to the premeasured depth. The 10x4mm patellofemoral Wave trochlear component by Arthrosurface was then malleted into position sitting flush over the lateral and proximal lateral aspect. The knee was held in extension and the patella was measured as 22 mm. Using the patellar clamp and cut guide, this was resected to a flat surface with at least 13mm of thickness remaining. The size 32 patella fit the best. This was oriented and then clamped into position. The lugs were drilled. A trial patella was placed and showed excellent tracking. High viscosity cement was prepared on the back table under vacuum preparation. When ready, cement was manually impacted into the cut surface of the patella and the patellar button was clamped into position and held. During this process attention was turned to the gutters of the knee and for all interfaces for any excess cement. While the cement was hardening, the knee was irrigated with Irrisept chlorhexadine solution. It was allowed to sit in the knee for 3 minutes. After the cement had finally cured, approximately 15min, the clamp was removed from the patella and the knee was taken through range of motion. The capsule was then reapproximated with a No. 1 Vicryl. The second dosing of 1g TXA was started. Deep tissues were then reapproximated with 0 Vicryl and 2-0 Vicryl. The skin was closed with a running 3-0 Monocryl in a subcuticular fashion. This was reinforced with skin glue. A Mepilex silver dressing was applied. RIGHT KNEE Attention was then turned to the right knee. Once again, with the knee in some flexion, a midline incision was made overlying the knee. Full thickness skin flaps were raised once the extensor mechanism was encountered. These were raised medially and laterally. Any bleeding was controlled with electrocautery. Once the extensor mechanism was fully exposed, a medial parapatellar arthrotomy was performed in a flexed position. All bleeding from the arthrotomy and the geniculate arteries was coagulated. The menisci and intrameniscal ligament was preserved. The Arthrosurface patellofemoral trial was then placed in the appropriate position and a single guidewire was placed through the center of this device. This was confirmed to be in appropriate location using the targeting arm. The trochlea was then sized in both directions corresponding to an 10x4. The initial reamer was then placed and taken down to appropriate depth. The reaming and drill guide was then placed within this recess and secured with pins. Using both the centralized reamer and the edge reamer, the trochlear recess was prepared. The guide was removed and the edges were curetted for completeness. The central hole was then prepared with a drill and a tap. The outer surface screw was then inserted to the premeasured depth. The 10 x 4mm patellofemoral Wave trochlear component by Arthrosurface was then malleted into position sitting flush over the lateral and proximal lateral aspect. The knee was held in extension and the patella was measured as 22 mm. Using the patellar clamp and cut guide, this was resected to a flat surface with at least 13mm of thickness remaining. The size 32 patella fit the best. This was oriented and then clamped into position. The lugs were drilled. A trial patella was placed and showed excellent tracking without any lift off. High viscosity cement was prepared on the back table under vacuum preparation. When ready, cement was manually impacted into the cut surface of the patella and the patellar button was clamped into position and held. During this process attention was turned to the gutters of the knee and for all interfaces for any excess cement. While the cement was hardening, the knee was irrigated with Irrisept chlorhexadine solution. It was allowed to sit in the knee for 3 minutes. After the cement had finally cured, approximately 15min, the clamp was removed from the patella and the knee was taken through range of motion. The capsule was then reapproximated with a No. 1 Vicryl. The second dosing of 1g TXA was started. Deep tissues were then reapproximated with 0 Vicryl and 2-0 Vicryl. The skin was closed with a running 3-0 Monocryl in a subcuticular fashion. This was reinforced with skin glue. A Mepilex silver dressing was yanet lied along with a [id number]-gx-hbsje WILY wrap. A csqe-hx-akrtu WILY wrap was applied to the left knee. A CryoCuff was applied. Mckayla was transferred to the hospital bed without difficulty an suffering no apparent complication. Patient has a good prognosis. Physical therapy will start today and without restrictions, weight-bearing as tolerated. Aspirin 81mg BID will be used for DVT prophylaxis.
--- NOTE | 2021-03-05 16:33 | SUR.PHASEII ---
Patient assisted to bathroom to dress at 1600, patient became tearful and said it was too much and looked at her and stated i cant do this. reassured her that she could. MD aware , and discharge is to be continued, md prescribed several medications for pain relief that are to be taken at home. patient instructed to take medications as prescribed and to call if there are any concerns or questions.
== END 2021-03-05 16:27 | disposition home or self-care (01) ==
LOC: SUR 07:56
PROVIDERS: PCP Internal Medicine; Visit Provider Student in an Organized Health Care Education/Training Program
PROC: (CPT 27437; principal; 2021-03-05 10:00)
DX: M17.0 Bilateral primary osteoarthritis of knee (principal)
CPT/HCPCS: 27438; C1776; 76942; 97162; 97530; J0690; J1885; J2001; J2250; J2405; J3010

== ENCOUNTER 2021-03-20 10:16 | Outpatient (CLI) | payer MEDICARE, BC, SELFPAY ==
--- NOTE | 2021-03-20 10:00 | DI.RAD_ITS ---
Exam(s) XR KNEE LT 3V AP,LAT,LENIN EXAM: XR KNEE LT 3V AP,LAT,LENIN INDICATION: s/p bilateral PFJ. COMPARISON: CR XR KNEES MERCHANT ONLY from 07/08/2020 CR XR KNEE LT 3V AP,LAT,LENIN from 07/08/2020 CR XR KNEE RT 3V AP,LAT,LENIN from 03/20/2021 TECHNIQUE: 2D digital imaging was performed. FINDINGS: A patellofemoral prosthesis has been placed since the previous exam. There is mild spurring from the femoral condyles. The lateral view is somewhat oblique. There is question of a joint effusion. DATA REPOSITORY: RADIATION DOSE DELIVERED:
--- NOTE | 2021-03-20 10:00 | DI.RAD_ITS ---
Exam(s) XR KNEE RT 3V AP,LAT,LENIN EXAM: XR KNEE RT 3V AP,LAT,LENIN INDICATION: s/p bilateral PFJ. COMPARISON: CR XR KNEE RT 3V AP,LAT,LENIN from 07/08/2020 CR XR KNEES MERCHANT ONLY from 07/08/2020 TECHNIQUE: 2D digital imaging was performed. FINDINGS: A patellofemoral joint space prosthesis has been placed since the previous exam. There are no abnorm al surrounding lucencies. The a small joint effusion is present. Mild degenerative changes are note d in the femoral tibial joints. DATA REPOSITORY: RADIATION DOSE DELIVERED:
--- NOTE | 2021-03-24 11:26 | PDOC.ANES ---
Date of service: 03/24/21 Time of Service: 11:26 Anesthesia Note Report Anesthesia Note: Ángela called today to discuss her post op pain after her recent bilateral knee procedure. She states that she can not stop crying. It is hard to elucidate where her pain is exactly, but she states that both of her knees have been extremely tight and that this is the worst experience of her life, roughly tying the pain related to her shoulder surgery back in 2009. She states that she is unable to stay on taking the Tylenol as it makes her too drowsy and she will sleep for 4 hours. She seems to have significant anxiety related to the fact that she may have pain when she moves. She states that she has been in significant pain after working with PT. She states that she is having a hard time dealing with the pain. Her biggest complaint seems to be that she is crying all the time. She did cry through much of the phone call. We discussed that her anxiety might be playing a role in her pain and that she should find a mental health professional to help her in this regard. We did briefly talk about anxiety/depression and how it is linked with pain. She has an appointment with her PCP today. We discussed that from an anesthesia perspective I unfortunately have little to offer her at this stage, but to try to stay on the acetaminophen at least at night.
== END 2021-03-20 10:17 | disposition home or self-care (01) ==
LOC: DIORS 10:17
PROVIDERS: PCP Internal Medicine; Referring Provider Internal Medicine; Visit Provider Student in an Organized Health Care Education/Training Program
DX: M17.0 Bilateral primary osteoarthritis of knee (principal); Z47.1 Aftercare following joint replacement surgery; Z96.653 Presence of artificial knee joint, bilateral
CPT/HCPCS: 73562

== ENCOUNTER → 2021-04-17 09:56 | Outpatient (BNVA) | payer MEDICARE, BC, SELFPAY | PROVIDERS: PCP Internal Medicine; Referring Provider Internal Medicine | DX: Z47.1 Aftercare following joint replacement surgery (principal); Z96.653 Presence of artificial knee joint, bilateral ==

== ENCOUNTER → 2021-05-12 10:09 | Outpatient (BNVA) | payer MEDICARE, BC, SELFPAY | PROVIDERS: PCP Internal Medicine; Referring Provider Internal Medicine; Visit Provider Student in an Organized Health Care Education/Training Program | DX: Z47.89 Encounter for other orthopedic aftercare (principal) ==

== ENCOUNTER → 2021-06-23 10:40 | Outpatient (BNVA) | payer MEDICARE, BC, SELFPAY | PROVIDERS: PCP Internal Medicine; Referring Provider Internal Medicine; Visit Provider Student in an Organized Health Care Education/Training Program | DX: M17.0 Bilateral primary osteoarthritis of knee (principal) ==

== ENCOUNTER → 2021-10-13 10:12 | Outpatient (BNVA) | payer MEDICARE, BC, SELFPAY | PROVIDERS: PCP Internal Medicine; Referring Provider Internal Medicine; Visit Provider Student in an Organized Health Care Education/Training Program | DX: M17.11 Unilateral primary osteoarthritis, right knee (principal); M17.12 Unilateral primary osteoarthritis, left knee | CPT/HCPCS: 99214 ==

== ENCOUNTER → 2021-11-03 02:37 | Outpatient (CLI) | payer MEDICARE, BC, SELFPAY ==
--- NOTE | 2021-11-03 11:45 | DI.MAMMO_ITS ---
Exam(s) MAMMO SCREENING EXAM: MAMMO SCREENING CLINICAL HISTORY: screening. TECHNIQUE: Bilateral full field digital CC and MLO mammographic images were obtained with 3D tomosyn thesis and utilizing computer aided detection (CAD). COMPARISON: Prior mammograms were reviewed, the most recent being October 2020. This patient underwent bilateral breast ultrasound screening November 2020 which was apparently nega tive bilateral study. FINDINGS: There has been no significant change in the appearance and distribution of the fibroglandular tissue which is again noted be moderately dense. There are no new spiculated masses nor malignant appearing microcalcification groups. Asymmetric tissue posteriorly in the right breast on the CC view is unchanged from prior studies. There is no significant architectural distortion nor skin thickening-retraction. IMPRESSION: Moderately dense fibroglandular tissue. No obvious radiographic evidence of malignancy nor significa nt change compared to prior mammograms. BI-RADS Category 2 - Benign Findings Breast Density - Category C - Heterogeneously dense Breast density Category C or D implies that the patient has dense breast tissue. Dense breast tissue can make it harder to find cancer on a mammogram. Dense breast tissue is also associated with an incr eased risk of breast cancer. This information about the result of the mammogram report was provided to the patient to raise their awareness. Use this report when you speak with the patient about their risks for breast cancer, which includes their family history. At that time, you may recommend additional screening tests (Ultrasoun d or MRI) as these tests may add significant information. A negative radiographic report should not delay biopsy if a dominant or clinically suspicious mass is present. Up to ten percent of cancers are not identified on mammography. A negative report may reinforce clinical impression. Adenosis and dense breasts may obscure an underlying neoplasm. False positive reports average 6 to 10%. Patient will receive a letter notifying them of these results.
== END ==
PROVIDERS: PCP Internal Medicine; Visit Provider Nurse Practitioner Family
DX: Z12.31 Encounter for screening mammogram for malignant neoplasm of breast (principal); R91.8 Other nonspecific abnormal finding of lung field
CPT/HCPCS: 77063; 77067

== ENCOUNTER 2022-03-13 10:39 | Outpatient (CLI) | payer MEDICARE, BC, SELFPAY ==
--- NOTE | 2022-03-13 10:28 | DI.RAD_ITS ---
Exam(s) XR KNEE RT 3V AP,LAT,LENIN EXAM: XR KNEE RT 3V AP,LAT,LENIN CLINICAL HISTORY: right knee f/u. TECHNIQUE: 2D digital imaging was performed. COMPARISON: CR XR KNEE LT 3V AP,LAT,LENIN from 03/20/2021 CR XR KNEE RT 3V AP,LAT,LENIN from 03/20/2021 CR XR KNEE LT 3V AP,LAT,LENIN from 03/13/2022 FINDINGS: 3 views There is stable appearance of the patellofemoral prosthesis. No fracture nor loosening evident. IMPRESSION: DATA REPOSITORY: RADIATION DOSE DELIVERED:
--- NOTE | 2022-03-13 10:30 | DI.RAD_ITS ---
Exam(s) XR KNEE LT 3V AP,LAT,LENIN EXAM: XR KNEE LT 3V AP,LAT,LENIN CLINICAL HISTORY: left knee f/u. TECHNIQUE: 2D digital imaging was performed. COMPARISON: CR XR KNEE LT 3V AP,LAT,LENIN from 03/20/2021 FINDINGS: 3 views Stable appearance patellofemoral prosthesis no fracture loosening evident. IMPRESSION: DATA REPOSITORY: RADIATION DOSE DELIVERED:
== END 2022-03-13 10:40 | disposition home or self-care (01) ==
LOC: DIORS 10:40
PROVIDERS: PCP Internal Medicine; Referring Provider Internal Medicine; Visit Provider Student in an Organized Health Care Education/Training Program
DX: M17.0 Bilateral primary osteoarthritis of knee (principal); M76.891 Other specified enthesopathies of right lower limb, excluding foot; M76.892 Other specified enthesopathies of left lower limb, excluding foot
CPT/HCPCS: 73562; 99214

== ENCOUNTER 2022-05-04 09:04 | Outpatient (REF) | payer MEDICARE, BC, SELFPAY ==
--- NOTE | 2022-05-04 08:45 | SKI_PTH ---
PATIENT: Ángela Haines LOC: [facility]#:[id number] AGE/SX: 71/F ROOM: RE05/04/[address]: Ann Leach : 1950 BED: DIS: 05/04/2022 SPEC #: [id number] RECD: 05/04/22 18:00 STATUS: JESSICA REChandrakant #: [id number] DIAMANTE: 05/04/22 08:[address]: Ann Leach DEPT: Surgical Specimen RECD BY: Makayla Calloway ENTERED: 05/04/22 18:01 SP TYPE: ALESSANDRO TENORIO DR: Jean Pierre Godfrey Tissues: 1 - SKIN BIOPSY(SHAVE/PUNCH) Procedures: SKIN LEVEL 4 Comments: [id number]
== END 2022-05-04 09:05 | disposition home or self-care (01) ==
LOC: NCHCN 09:04
PROVIDERS: PCP Internal Medicine; Visit Provider Nurse Practitioner Family
DX: L82.0 Inflamed seborrheic keratosis (principal)
CPT/HCPCS: 88305

== ENCOUNTER 2022-07-12 15:08 | Emergency (ER) | payer MEDICARE, BC, SELFPAY ==
[2022-07-12 15:17] VITALS: BP 169/92; PULSE 97; RESP 18; TEMP 37.1; O2SAT 97
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
[2022-07-12] MEDS: diazePAM 5 MG TAB PO (16:04)
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
== END 2022-07-12 17:27 | disposition home or self-care (01) ==
PROVIDERS: Emergency Provider Physician Assistant; PCP Internal Medicine
DX: S32.029A Unspecified fracture of second lumbar vertebra, initial encounter for closed fracture (principal); V18.4XXA Pedal cycle driver injured in noncollision transport accident in traffic accident, initial encounter; Y92.828 Other wilderness area as the place of occurrence of the external cause; Y93.55 Activity, bike riding
CPT/HCPCS: 99284; 74176

== ENCOUNTER 2022-09-25 10:27 | Outpatient (CLI) | payer MEDICARE, BC, SELFPAY ==
--- NOTE | 2022-09-25 10:00 | DI.RAD_ITS ---
Exam(s) XR KNEE RT 3V AP,LAT,LENIN XR KNEE LT 3V AP,LAT,LENIN EXAM: XR KNEE RT 3V AP,LAT,LENIN CLINICAL HISTORY: knee pain. TECHNIQUE: 2D digital imaging was performed. Three views. COMPARISON: CR XR KNEE LT 3V AP,LAT,LENIN from 03/13/2022 CR XR KNEE RT 3V AP,LAT,LENIN from 03/13/2022 CR XR KNEE LT 3V AP,LAT,LENIN from 09/25/2022 FINDINGS: BONES: No acute fracture is present. No bony destructive lesion is seen. JOINTS: The knee is normally aligned. No joint effusion is seen. Bilateral patellofemoral prosthese s appear unchanged. No abnormal surrounding lucencies. Femoral tibial joint spaces are maintained. SOFT TISSUE: Normal. IMPRESSION: Stable appearance of bilateral patellofemoral joint space prostheses. DATA REPOSITORY: RADIATION DOSE DELIVERED:
== END 2022-09-25 10:28 | disposition home or self-care (01) ==
LOC: DIORS 10:28
PROVIDERS: PCP Internal Medicine; Referring Provider Internal Medicine; Visit Provider Student in an Organized Health Care Education/Training Program
DX: M76.891 Other specified enthesopathies of right lower limb, excluding foot (principal); M76.892 Other specified enthesopathies of left lower limb, excluding foot; M76.51 Patellar tendinitis, right knee; M76.52 Patellar tendinitis, left knee; M17.0 Bilateral primary osteoarthritis of knee
CPT/HCPCS: 73562; 99213

== ENCOUNTER → 2022-11-11 01:09 | Outpatient (CLI) | payer MEDICARE, BC, SELFPAY ==
--- NOTE | 2022-11-11 | DI.MAMMO_ITS ---
Exam(s) MAMMO SCREENING EXAM: MAMMO SCREENING CLINICAL HISTORY: SCREENING, Z12.31 TECHNIQUE: Mammograms were interpreted according to the usual protocol including computer analysis w [employer] CAD system, tomosynthesis and C-view imaging. COMPARISON: 2015 through 2021 FINDINGS: The breasts are composed of heterogeneously dense fibroglandular densities, Breast Density category C . No suspicious masses or suspicious microcalcifications are seen. No skin thickening or abnormal axillary lymph nodes are seen. There has been no significant change from prior exams. IMPRESSION: BI-RADS Category 1, Negative mammogram. Yearly screening mammography is recommended. Breast Density Category C, heterogeneously Dense. The mammogram demonstrates the patient's breast tissue is dense. Dense breast tissue is very common a nd is not abnormal but dense breast tissue can make it harder to find cancer on a mammogram. Also, de nse breast tissue may increase breast cancer risk. This information about the result of the mammogram report was provided to the patient to raise their awareness. Use this report when you speak with the patient about their risks for breast cancer, which includes their family history. At that time, you may recommend additional screening tests (Ultrasound or MRI) as they might be useful based on their r isk. A negative radiographic report should not delay biopsy if a dominant or clinically suspicious mass is present. Up to ten percent of cancers are not identified on mammography. A negative report may reinforce clinical impression. Adenosis and dense breasts may obscure an underlying neoplasm. False positive reports average 6 to 10%.
== END ==
PROVIDERS: PCP Internal Medicine; Visit Provider Nurse Practitioner Family
DX: Z12.31 Encounter for screening mammogram for malignant neoplasm of breast (principal)
CPT/HCPCS: 77063; 77067

== ENCOUNTER 2022-11-26 16:24 | Outpatient (REF) | payer MEDICARE, BC, SELFPAY ==
--- NOTE | 2022-11-26 16:28 | PAPFT_PTH ---
PATIENT: Ángela Haines LOC: [facility] U#:[id number] AGE/SX: 72/F ROOM: RE11/26/[address]: Ophelia Artis MD : [id number] BED: DIS: 11/26/2022 SPEC #: [id number] RECD: 11/26/22 17:19 STATUS: JESSICA REChandrakant #: [id number] DIAMANTE: 11/26/22 16:[address]: Ophelia Artis DEPT: [facility] Cytology RECD BY: Makayla Calloway ENTERED: 11/26/22 17:20 SP TYPE: PAPFT OTHR DR: Jean Pierre Godfrey Tissues: 1 - CX/ENDOCX FOR PAP SMEARS Procedures: PAP THIN PREP/[facility] Screening HPV DNA PROBE Comments: [id number]
== END 2022-11-26 16:25 | disposition home or self-care (01) ==
LOC: LBN 16:24
PROVIDERS: PCP Internal Medicine; Visit Provider Obstetrics & Gynecology
DX: Z11.51 Encounter for screening for human papillomavirus (HPV) (principal); Z01.419 Encounter for gynecological examination (general) (routine) without abnormal findings
CPT/HCPCS: 88142; 87624

== ENCOUNTER → 2023-04-05 08:29 | Outpatient (BNVA) | payer MEDICARE, BC, SELFPAY | PROVIDERS: PCP Internal Medicine; Visit Provider Student in an Organized Health Care Education/Training Program | DX: Z47.1 Aftercare following joint replacement surgery (principal); T84.84XA Pain due to internal orthopedic prosthetic devices, implants and grafts, initial encounter; Z96.653 Presence of artificial knee joint, bilateral | CPT/HCPCS: 99214 ==

== ENCOUNTER → 2023-04-21 01:02 | Outpatient (CLI) | payer MEDICARE, BC, SELFPAY ==
--- NOTE | 2023-04-21 07:45 | DI.NM_ITS ---
Exam(s) NM BONE SCAN 3 PHASE EXAM: PR BONE SCAN 3 PHASE CLINICAL HISTORY: ?LOOSENING AMMON KNEE devices,pain,tendonitis,T84.84xa,m76.52,m76.51. TECHNIQUE: Injected Dose: 25 mCi Tc-99m MDP COMPARISON: CT CT ABDOMEN PELVIS WO from 07/12/2022 CR XR KNEE RT 3V AP,LAT,LENIN from 09/25/2022 CR XR KNEE LT 3V AP,LAT,LENIN from 09/25/[address] LOWER EXTREMITY RT WO from 04/21/[address] LOWER EXTREMITY LT WO from 04/21/2023 FINDINGS: Perfusion: Symmetric. Blood Pool: Symmetric. Delayed: Mildly increased activity at both patella, left greater than right. Mildly increased activity in the L2 vertebral body, likely related to L2 compression fracture IMPRESSION: Mildly increased activity at both patella without definite evidence of loosening. DATA REPOSITORY:
--- NOTE | 2023-04-21 11:30 | DI.CT_ITS ---
Exam(s) CT LOWER EXTREMITY RT WO CT LOWER EXTREMITY LT WO EXAM: CT LOWER EXTREMITY LT WO CLINICAL HISTORY: PAIN, ?LOOSENING knee replacement,patellar tendonitis,m76.52,T84.84xa TECHNIQUE: Imaging Protocol: Axial computed tomography images with coronal and sagittal reformatted images were created and reviewed. CONTRAST MATERIAL: Noncontrast COMPARISON: CR XR KNEE RT 3V AP,LAT,LENIN from 09/25/2022 CR XR KNEE LT 3V AP,LAT,LENIN from 09/25/[address] LOWER EXTREMITY RT WO from 04/21/2023 FINDINGS: Bones: Stable alignment of bilateral patellofemoral joint space prostheses. No surrounding bony luce ncies. There is no evidence of fracture. Femoral tibial joint spaces are maintained. Minimal peria rticular spurring. No evidence of joint effusion. Alignment is satisfactory. No cellulitic or osteomyelitic changes are identified. No lytic or sclerotic lesions are identified. Soft Tissues: Normal. IMPRESSION: Stable appearance of bilateral patellofemoral joint space prostheses. No acute abnormalities. RADIATION DOSE DELIVERED: 254.63mGy.cm Total DLP 254.63mGy.cm Total DLP 254.63mGy.cm Total DLP 254.63mGy.cm Total DLP DATA REPOSITORY: All CT scans at this facility are submitted to the National Radiology Data Registry (NRDR) Dose Index Registry (DIR) with the [employer] (ACR). RADIATION OPTIMIZATION: All CT scans at this facility use at least one of these dose optimization te chniques: automated exposure control; mA and/or kV adjustment per patient size (includes targeted exa ms where dose is matched to clinical indication); or iterative reconstruction.
== END ==
PROVIDERS: PCP Internal Medicine; Visit Provider Student in an Organized Health Care Education/Training Program
DX: M76.51 Patellar tendinitis, right knee (principal); M76.52 Patellar tendinitis, left knee; T84.84XA Pain due to internal orthopedic prosthetic devices, implants and grafts, initial encounter; Z98.890 Other specified postprocedural states
CPT/HCPCS: 73700; 78315

== ENCOUNTER → 2023-04-23 08:24 | Outpatient (BNVA) | payer MEDICARE, BC, SELFPAY | PROVIDERS: PCP Internal Medicine; Referring Provider Internal Medicine; Visit Provider Student in an Organized Health Care Education/Training Program | DX: Z47.1 Aftercare following joint replacement surgery (principal); T84.84XA Pain due to internal orthopedic prosthetic devices, implants and grafts, initial encounter; Z96.653 Presence of artificial knee joint, bilateral | CPT/HCPCS: 99215 ==

== ENCOUNTER → 2023-04-30 09:56 | Outpatient (BNVA) | payer MEDICARE, BC, SELFPAY | PROVIDERS: PCP Internal Medicine; Referring Provider Internal Medicine; Visit Provider Student in an Organized Health Care Education/Training Program | DX: T84.84XA Pain due to internal orthopedic prosthetic devices, implants and grafts, initial encounter (principal); Z96.653 Presence of artificial knee joint, bilateral | CPT/HCPCS: 20610; J1040 ==

== ENCOUNTER 2023-08-19 19:53 | Emergency (ER) | payer MEDICARE, BC, SELFPAY ==
[2023-08-19 19:56] VITALS: BP 194/79; PULSE 88; RESP 16; TEMP 36.7; O2SAT 97
--- NOTE | 2023-08-19 20:00 | DI.RAD_ITS ---
Exam(s) XR HAND LT COMPLETE EXAM: XR HAND LT COMPLETE CLINICAL HISTORY: pain s/p fall. TECHNIQUE: 2D digital imaging was performed. Three views. COMPARISON: CR,XR XR HAND RT COMPLETE from 08/19/2023 FINDINGS: BONES: No acute fracture is present. No bony destructive lesion is seen. Mild diffuse osteopenia. JOINTS: No dislocation present. Minimal degenerative changes. SOFT TISSUE: Normal. IMPRESSION: No acute abnormality. DATA REPOSITORY: RADIATION DOSE DELIVERED:
--- NOTE | 2023-08-19 20:00 | DI.CT_ITS ---
Exam(s) CT HEAD CERV SPINE FACIAL WO EXAM: CT HEAD CERV SPINE FACIAL WO CLINICAL HISTORY: pain right sided s/p fall. TECHNIQUE: Imaging Protocol: Axial computed tomography images with coronal and sagittal reformatted images were created and reviewed COMPARISON: No exams were available for comparison FINDINGS: CT Head: Ventricles and Extra axial spaces: Normal in size and morphology for the patient's age. Hemorrhage: None. Cerebral parenchyma: No evidence of acute hemorrhage or acute infarct. Midline shift: None. Brainstem/Cerebellum: Normal. Calvarium: Normal. Visualized Paranasal sinuses/Mastoids: Clear. Soft Tissues: Unremarkable. CT Face: Facial Bones: No fracture is noted in facial bones. Nasal septum is deviated toward the left. Sinuses and Mastoids: Unremarkable. Globes, extraocular muscles, optic nerves and retrobulbar fat: Normal. Upper aerodigestive tract: Normal. Mandible and bilateral temporomandibular joints: Normal. Soft tissues: Normal. CT Cervical Spine: Bones: No acute fracture or subluxation. Degenerative disc changes and facet degenerative changes c ausing neural foraminal narrowing at C4-5 and C5-6. No significant central canal stenosis. Soft Tissues: Unremarkable. Lung Apices: Clear. IMPRESSION: 1. No acute intracranial process. 2. No acute fracture or subluxation in the cervical spine. Degenerative changes. 3. No acute facial fracture. RADIATION DOSE DELIVERED: 2,349.77mGy.cm Total DLP DATA REPOSITORY: All CT scans at this facility are submitted to the National Radiology Data Registry (NRDR) Dose Index Registry (DIR) with the [employer] (ACR). RADIATION OPTIMIZATION: All CT scans at this facility use at least one of these dose optimization te chniques: automated exposure control; mA and/or kV adjustment per patient size (includes targeted exa ms where dose is matched to clinical indication); or iterative reconstruction.
--- NOTE | 2023-08-19 20:00 | DI.RAD_ITS ---
Exam(s) XR HAND RT COMPLETE EXAM: XR HAND RT COMPLETE CLINICAL HISTORY: pain s/p fall. TECHNIQUE: 2D digital imaging was performed. Three views. COMPARISON: No exams were available for comparison FINDINGS: BONES: No acute fracture is present. No bony destructive lesion is seen. Diffuse osteopenia. JOINTS: No dislocation present. Minimal degenerative changes. SOFT TISSUE: Normal. IMPRESSION: Unremarkable radiographs of the right hand. DATA REPOSITORY: RADIATION DOSE DELIVERED:
--- NOTE | 2023-08-19 20:11 | ED.GENADUL_ITS ---
Discharge Plan Disposition Patient Disposition: Home Condition: Stable Discharge Details Clinical Impression: Blunt head trauma, Blunt chest trauma, Fall, Contusion of left hand, Contusion of hand, right Primary Care Provider: Jean Pierre Godfrey ED Provider: Regino Perkins Home Meds and New Rx's Prescriptions: Continued estradiol [Estrace] 0.01 % (0.1 mg/gram) cream 1 g vaginal .COMPLEX Qty: 42.5 4RF Rx Instructions: 1 g VG twice weekly metformin 1,000 mg tablet 2,000 mg PO DAILY cannabidiol 100 mg/mL solution See Rx Instructions PO BID Patient Comments: 3 gtt PO BID; Rx Instructions: 3 gtt PO BID; cholecalciferol (vitamin D3) [Vitamin D3] 1,000 UNIT capsule 1,000 unit PO DAILY diazepam [Valium] 5 mg tablet 5 mg PO BID PRNQty: 10 0RF Discharge Instructions Additional Instructions: Your imaging did not show any concerning findings at this time Pain continues within a week follow-up with the primary care provider if you feel more ill, have severe worsening pain or new symptoms such as persistent vomiting return to the emergency department for reevaluation HPI General Mode of arrival: ambulatory . Date/Time Provider Initiated Documentation: 08/19/23 20:00 . Limitations to Documentation: no limitations . Information obtained by: patient . History of Present Illness 72 year old F presents to the emergency department with the chief complaint of fall down stairs, described as moderate, Quality is described as aching, Patient started experiencing this hour(s) (1) and it has been constant. No relieving factors improve symptom(s), No exacerbating factors reported . Patient notes denies fever/chills and nausea/vomiting. Patient did receive the following treatments prior to arrival, none Related Data Home Medications Medication Instructions Recorded Confirmed cholecalciferol (vitamin D3) 25 1,000 unit PO DAILY 10/16/15 04/30/23 mcg (1,000 unit) capsule (Vitamin D3) cannabidiol 100 mg/mL oral solution See Rx Instructions PO BID 06/17/18 04/30/23 estradiol 0.01% (0.1 mg/gram) 1 g vaginal .COMPLEX #42.5 grams 10/09/21 04/30/23 vaginal cream (Estrace) diazepam 5 mg tablet (Valium) 5 mg PO BID PRN #10 tabs 07/12/22 04/30/23 metformin 1,000 mg tablet 2,000 mg PO DAILY 11/26/22 04/30/23 Previous Rx's Medication Instructions Recorded estradiol 0.01% (0.1 mg/gram) 1 g vaginal .COMPLEX #42.5 grams 10/09/21 vaginal cream (Estrace) diazepam 5 mg tablet (Valium) 5 mg PO BID PRN #10 tabs 07/12/22 Allergies Allergy/AdvReac Type Severity Reaction Status Date / Time naproxen [From Aleve] AdvReac Intermediate Verified 04/30/23 10:13 acetaminophen [From Tylenol] AdvReac Verified 04/30/23 10:13 General Stated Complaint: Orthopedic MAGI: 4 Review of Systems All systems reviewed & are unremarkable except as noted in HPI and below Constitutional Constitutional: Denies chills, Denies fever(s) and Denies weakness Cardiovascular Cardiovascular: Denies dyspnea Respiratory Respiratory: Denies cough and Denies dyspnea Gastrointestinal Gastrointestinal: Denies abdominal pain, Denies nausea and Denies vomiting Musculoskeletal Musculoskeletal: Denies joint swelling Neurologic Neurologic: Denies weakness Exam Const General: no acute distress Orientation: alert HENTX Head: no palpable skull fracture Ears: external ears normal General nose exam: external nose normal Mouth: moist mucous membranes Eyes General: appearance normal, both eyes and all related structures Neck Neck: normal visual inspection Chest Chest: tenderness Resp Effort & Inspection: normal respiratory effort and able to speak in complete sentences Auscultation: clear to auscultation bilaterally Cardio Rate: regular rate GI Palpation: soft and nontender Skin General skin exam: no rashes or lesions noted Neuro General: patient alert and patient oriented x3 Extrem General: normal to inspection, full ROM and capillary refill normal Psych Mental Status: mental status grossly normal Course Vital Signs Vital signs: Vital Signs Temperature 36.7 C 08/19/23 19:56 Pulse 88 08/19/23 19:56 Respiratory Rate 16 08/19/23 19:56 Blood Pressure 194/79 H 08/19/23 19:56 Pulse Oximetry 97 08/19/23 19:56 Temperature 36.7 C 08/19/23 19:56 Temperature Source Temporal Artery Scan 08/19/23 19:56 Pulse 88 08/19/23 19:56 Respiratory Rate 16 08/19/23 19:56 Respiratory Effort Normal 08/19/23 20:02 Blood Pressure 194/79 H 08/19/23 19:56 Pulse Oximetry 97 08/19/23 19:56 Oxygen Delivery Method Room Air 08/19/23 19:56 Oxygen Flow Rate 0 08/19/23 19:56 Pain Level 5 08/19/23 19:56 Medical Decision Making 72-year-old female comes in after she fell down some stairs. She says she was o n the third for the last step and there was an object on the stairs that she tripped over causing her to fall forward. Did not have loss of consciousness and has no vomiting since. She denies any preceding symptoms to the fall such as chest pain, difficulty breathing, lightheadedness. States she felt well all day prior to the fall. She is complaining of bilateral hand pain, right-sided head pain, right-sided chest pain since the fall. Has no pain in her legs or abdomen. She is alert and oriented x 4 on arrival. She has a small contusion on the right forehead, pupils are equal and reactive to light with fully intact range of motion of the eyes. She has right-sided lateral neck pain of the mid neck no midline tenderness. No T or L-spine tenderness. She has tenderness over the fifth and sixth ribs in the mid axillary line on the right, abdomen is soft and nontender. She has mid posterior right and left hand pain without visible or palpable deformities, has intact range of motion of the hands and wrist, intact sensation and pulses bilaterally. Given her fall will obtain CT head, face, C-spine, CT chest. Will also obtain x-rays of her hands. Imaging all unremarkable, patient stable and feels better, has no abdominal tenderness still. Do not feel any further imaging indicated. She is stable for discharge, advised to follow-up with her PCP and return precautions given. She has no midline neck tenderness and full range of motion of her neck so do not feel she requires further imaging of her neck. Her blood pressure was elevated here but she was in pain, verbally instructed to follow-up with her primary for recheck. Differential Diagnosis Differential Diagnosis: Fracture, contusion Imaging Data Radiologic Study: Attestation: I personally reviewed and interpreted this imaging study as follows: Imaging: CT Scan Radiologist's impression: No acute findings on head/facial/C-spine CTs Radiologic Study #2: Attestation: I personally reviewed and interpreted this imaging study as follows: Imaging: CT Scan Radiologist's impression: CT chest no acute findings Radiologic Study #3: Attestation: I personally reviewed and interpreted this imaging study as follows: Imaging: X-Ray Radiologist's impression: No acute findings left hand x-ray Radiologic Study #4: Attestation: I personally reviewed and interpreted this imaging study as follows: Imaging: X-Ray Radiologist's impression: No acute findings right hand x-ray Quality:SDOH Health Related Social Needs: No Data to Display PFSH All Active Problems (Updated 08/19/23 @ 21:17 by Regino Perkins MD) Contusion of hand, right (Acute) Contusion of left hand (Acute) Fall (Acute) Blunt chest trauma (Acute) Blunt head trauma (Acute) Pain of both lower extremities due to bilateral total knee replacements (Acute) LEFT KNEE DEPO MEDROL 04/30/23 Patellar tendonitis of both knees (Acute) Tendinitis of both quadricep tendons (Acute) Neuropathy (Acute) 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) Surgical History Status post right rotator cuff repair 2010 Status post tonsillectomy late Bone spur of posterior portion of right calcaneus around 18 yo 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
--- NOTE | 2023-08-19 20:30 | DI.CT_ITS ---
Exam(s) CT CHEST WO EXAM: CT CHEST WO CLINICAL HISTORY: right sided chest pain s/p fall TECHNIQUE: Imaging Protocol: Axial computed tomography images with coronal and sagittal reformatted images were created and reviewed CONTRAST MATERIAL: Noncontrast COMPARISON: No exams were available for comparison FINDINGS: Pulmonary parenchyma: Mild basilar scarring/atelectasis. No consolidation. No dominant measurable m ass. Tracheobronchial tree: No bronchiectasis or mucous plugging. Mediastinum and Suze: No dominant adenopathy or fluid collection. Pleura: No effusion. No pneumothorax. Heart: The heart is mild dilated. No coronary artery calcifications are seen. Aorta: Thoracic aorta non-dilated. Mild atherosclerotic changes. Upper abdomen: No acute findings.. Bones: Advanceddegenerative changes in the spine. Soft tissues: Unremarkable. IMPRESSION: No acute abnormality. RADIATION DOSE DELIVERED: 589.13mGy.cm Total DLP DATA REPOSITORY: All CT scans at this facility are submitted to the National Radiology Data Registry (NRDR) Dose Index Registry (DIR) with the [employer] (ACR). RADIATION OPTIMIZATION: All CT scans at this facility use at least one of these dose optimization te chniques: automated exposure control; mA and/or kV adjustment per patient size (includes targeted exa ms where dose is matched to clinical indication); or iterative reconstruction.
--- NOTE | 2023-08-19 20:56 | DI.VRAD_ITS ---
PROCEDURE INFORMATION: Exam: CT Head Without Contrast Exam date and time: 08/19/2023 8:31 PM Age: 72 years old Clinical indication: Pain and injury or trauma; Fall and other: Pain right sided S/P fall; Blunt trauma (contusions or hematomas); Headache and other: Pain right sided S/P fall TECHNIQUE: Imaging protocol: Computed tomography of the head without contrast. COMPARISON: No relevant prior studies available. FINDINGS: Brain: Normal. No hemorrhage. Unremarkable white matter. No mass effect. Cerebral ventricles: No ventriculomegaly. Paranasal sinuses: Visualized sinuses are unremarkable. No fluid levels. Mastoid air cells: Visualized mastoid air cells are well aerated. Bones: Unremarkable. No acute fracture. Soft tissues: Unremarkable. IMPRESSION: No acute abnormality. PROCEDURE INFORMATION: Exam: CT Maxillofacial Without Contrast Exam date and time: 08/19/2023 8:31 PM Age: 72 years old Clinical indication: Pain and injury or trauma; Fall and other: Pain right sided S/P fall; Blunt trauma (contusions or hematomas); Headache and other: Pain right sided S/P fall TECHNIQUE: Imaging protocol: Computed tomography of the face without contrast. COMPARISON: No relevant prior studies available. FINDINGS: Orbital cavities: Orbits are normal. Globes are unremarkable. Bones: No acute fracture. Paranasal sinuses: Normal. No air-fluid levels. Soft tissues: Unremarkable. Nasal cavity: Leftward nasal septal deviation and spur. IMPRESSION: No acute fracture. PROCEDURE INFORMATION: Exam: CT Cervical Spine Without Contrast Exam date and time: 08/19/2023 8:31 PM Age: 72 years old Clinical indication: Pain and injury or trauma; Fall and other: Pain right sided S/P fall; Blunt trauma (contusions or hematomas); Headache and other: Pain right sided S/P fall TECHNIQUE: Imaging protocol: Computed tomography of the cervical spine without contrast. COMPARISON: No relevant prior studies available. FINDINGS: Bones/joints: Moderate to severe multilevel facet arthropathy and lower cervical degenerative disc disease. No acute fracture or dislocation. Straightening of the normal cervical lordosis. C2-C3: Facet arthropathy. No significant central canal or neural foraminal stenosis. C3-C4: Facet arthropathy. Mild right neural foraminal stenosis. C4-C5: Posterior osteophytes and facet arthropathy. Severe right and moderate left neural foraminal stenosis. C5-C6: Posterior osteophytes and facet arthropathy. Moderate bilateral neural foraminal stenosis. C6-C7: Posterior osteophytes and facet arthropathy. Mild left neural foraminal stenosis. C7-T1: No significant disc bulge or herniation. No severe spinal canal stenosis. No significant neural foraminal narrowing. Lungs: Lung apices are normal. Soft tissues: Unremarkable. IMPRESSION: 1. No acute fracture. 2. Multilevel cervical spondylosis. Dictated and Authenticated by: Og Soriano MD. Ordering:KOLE Lacy MD
--- NOTE | 2023-08-19 21:27 | DI.VRAD_ITS ---
PROCEDURE INFORMATION: Exam: CT Chest Without Contrast; Diagnostic Exam date and time: 08/19/2023 9:01 PM Age: 72 years old Clinical indication: Pain and injury or trauma; Blunt trauma (contusions or hematomas); Right-sided; Injury details: Right sided chest pain S/P fall; Additional info: Pain right sided S/P fall TECHNIQUE: Imaging protocol: Diagnostic computed tomography of the chest without contrast. 3D rendering (Not supervised by radiologist): MIP and/or 3D reconstructed images were created by the technologist. COMPARISON: 1. CT HEAD CERV SPINE FACIAL WO 08/19/2023 8:[address] ABDOMEN PELVIS WO 07/12/2022 4:43 PM FINDINGS: Lungs: Mild bibasilar subsegmental atelectasis and/or scarring. No parenchymal mass or airspace consolidation. Pleural spaces: Unremarkable. No pneumothorax. No pleural effusion. Heart: Unremarkable. No cardiomegaly. No pericardial effusion. Lymph nodes: Unremarkable. No enlarged lymph nodes. Vasculature: Unremarkable. No aortic aneurysm. Bones/joints: [id number] multilevel thoracic degenerative disc disease. No acute fracture. Superior endplate indentation of the partially included L2 vertebral body is not significantly changed from the 07/12/2022 comparison. Soft tissues: Unremarkable. IMPRESSION: No significant abnormality. Dictated and Authenticated by: Og Soriano MD. Ordering:KOLE Lacy MD
--- NOTE | 2023-08-19 21:29 | DI.VRAD_ITS ---
PROCEDURE INFORMATION: Exam: XR Left Hand Exam date and time: 08/19/2023 8:38 PM Age: 72 years old Clinical indication: Injury or trauma; Fall; Blunt trauma (contusions or hematomas); Hand; Left; Additional info: Pain right sided S/P fall TECHNIQUE: Imaging protocol: Radiologic exam of the left hand. Views: 3 or more views. COMPARISON: No relevant prior studies available. FINDINGS: Bones/joints: Mild diffuse osteopenia. No acute fracture or dislocation. Soft tissues: Unremarkable. IMPRESSION: No acute fracture. Dictated and Authenticated by: Og Soriano MD. Ordering:KOLE Lacy MD
--- NOTE | 2023-08-19 21:30 | DI.VRAD_ITS ---
PROCEDURE INFORMATION: Exam: XR Right Hand Exam date and time: 08/19/2023 8:37 PM Age: 72 years old Clinical indication: Injury or trauma; Fall; Blunt trauma (contusions or hematomas); Hand; Right; Additional info: Pain right sided S/P fall TECHNIQUE: Imaging protocol: Radiologic exam of the right hand. Views: 3 or more views. COMPARISON: No relevant prior studies available. FINDINGS: Bones/joints: Mild diffuse osteopenia. No acute fracture or dislocation. Soft tissues: Unremarkable. IMPRESSION: No acute fracture. Dictated and Authenticated by: Og Soriano MD. Ordering:KOLE Lacy MD
== END 2023-08-19 21:52 | disposition home or self-care (01) ==
PROVIDERS: Emergency Provider Emergency Medicine; PCP Internal Medicine
DX: S60.221A Contusion of right hand, initial encounter (principal); S60.222A Contusion of left hand, initial encounter; S29.8XXA Other specified injuries of thorax, initial encounter; S09.8XXA Other specified injuries of head, initial encounter; W10.8XXA Fall (on) (from) other stairs and steps, initial encounter
CPT/HCPCS: 71250; 99284; 70450; 70486; 72125; 73130; 99283

== ENCOUNTER → 2023-11-25 14:51 | Outpatient (BNVA) | payer MEDICARE, BC, SELFPAY | PROVIDERS: PCP Nurse Practitioner Family; Referring Provider Nurse Practitioner Family; Visit Provider Student in an Organized Health Care Education/Training Program | DX: Z47.1 Aftercare following joint replacement surgery (principal); T84.84XA Pain due to internal orthopedic prosthetic devices, implants and grafts, initial encounter; Z96.653 Presence of artificial knee joint, bilateral | CPT/HCPCS: 99214 ==

== ENCOUNTER 2023-12-03 15:10 | Outpatient (REF) | payer MEDICARE, BC, SELFPAY ==
--- NOTE | 2023-12-03 13:50 | PAPFT_PTH ---
PATIENT: Ánglea Haines LOC: [facility] U#:[id number] AGE/SX: 73/F ROOM: RE12/03/[address]: Ophelia Artis MD : 1950 BED: DIS: 12/03/2023 SPEC #: [id number] RECD: 12/03/23 18:24 STATUS: JESSICA REQ #: [id number] DIAMANTE: 12/03/23 13:[address]: Ophelia Artis DEPT: [facility] Cytology RECD BY: Makayla Calloway ENTERED: 12/03/23 18:24 SP TYPE: PAPFT OTHR DR: Ann Leach Tissues: 1 - CX/ENDOCX FOR PAP SMEARS Procedures: PAP THIN PREP/[facility] Screening HPV DNA PROBE Comments: [id number] (HPV 16 & 18/45)
== END 2023-12-03 15:11 | disposition home or self-care (01) ==
LOC: LBN 15:10
PROVIDERS: PCP Nurse Practitioner Family; Visit Provider Obstetrics & Gynecology
DX: Z11.51 Encounter for screening for human papillomavirus (HPV) (principal); Z01.419 Encounter for gynecological examination (general) (routine) without abnormal findings
CPT/HCPCS: 88142; 87624

== ENCOUNTER 2023-12-06 01:08 | Outpatient (CLI) | payer MEDICARE, BC, SELFPAY ==
--- NOTE | 2023-12-06 09:15 | DI.MAMMO_ITS ---
Exam(s) MAMMO SCREENING EXAM: MAMMO SCREENING CLINICAL HISTORY: screening TECHNIQUE: Mammograms were interpreted according to the usual protocol including computer analysis w [facility] CAD system, tomosynthesis and C-view imaging. COMPARISON: 2015 through 2022 FINDINGS: The breasts are composed of heterogeneously dense fibroglandular densities, Breast Density category C . No suspicious masses or suspicious microcalcifications are seen. No skin thickening or abnormal axillary lymph nodes are seen. There has been no significant change from prior exams. IMPRESSION: BI-RADS Category 1, Negative mammogram. Yearly screening mammography is recommended. Breast Density Category C, heterogeneously Dense. The mammogram demonstrates the patient's breast tissue is dense. Dense breast tissue is very common a nd is not abnormal but dense breast tissue can make it harder to find cancer on a mammogram. Also, de nse breast tissue may increase breast cancer risk. This information about the result of the mammogram report was provided to the patient to raise their awareness. Use this report when you speak with the patient about their risks for breast cancer, which includes their family history. At that time, you may recommend additional screening tests (Ultrasound or MRI) as they might be useful based on their r isk. A negative radiographic report should not delay biopsy if a dominant or clinically suspicious mass is present. Up to ten percent of cancers are not identified on mammography. A negative report may reinforce clinical impression. Adenosis and dense breasts may obscure an underlying neoplasm. False positive reports average 6 to 10%.
== END 2023-12-06 01:28 ==
LOC: DI 01:08
PROVIDERS: PCP Nurse Practitioner Family; Visit Provider Obstetrics & Gynecology
DX: Z12.31 Encounter for screening mammogram for malignant neoplasm of breast (principal)
CPT/HCPCS: 77063; 77067

== ENCOUNTER 2024-04-29 10:39 | Emergency (ER) | payer MEDICARE, BC, SELFPAY ==
[2024-04-29 10:43] VITALS: BP 137/85; PULSE 93; RESP 18; TEMP 36.6; O2SAT 96
[2024-04-29 10:47] VITALS: BP 137/85; PULSE 93; RESP 18; TEMP 36.6; O2SAT 96
--- NOTE | 2024-04-29 11:00 | DI.RAD_ITS ---
Exam(s) XR CHEST 2V PA LATERAL EXAM: XR CHEST 2V PA LATERAL CLINICAL HISTORY: cough TECHNIQUE: 2D digital imaging was performed of the chest. Two images were obtained. PA and lateral views were obtained. COMPARISON: CT CT CHEST WO from 08/19/2023 FINDINGS: MEDIASTINUM: Normal. HEART: Normal. PULMONARY VASCULATURE: Normal. LUNGS: There is atelectasis in the left lung base. No focal consolidating infiltrates are present. PLEURAL SPACE: No pleural effusion or pneumothorax. BONE:Within normal limits for the patient's age. OTHER FINDINGS:Normal. IMPRESSION: No acute pulmonary findings. DATA REPOSITORY: RADIATION DOSE DELIVERED:
--- NOTE | 2024-04-29 11:03 | ED.GENADUL_ITS ---
Discharge Plan Disposition Patient Disposition: Home Condition: Stable Discharge Details Clinical Impression: Cough Primary Care Provider: Ann Leach ED Provider: Regino Perkins Home Meds and New Rx's Prescriptions: New prednisone 20 mg tablet 60 mg PO DAILY 4 Days Qty: 12 0RF ondansetron 4 mg tablet,disintegrating 4 mg PO Q8H PRN (Reason: nausea and vomiting) Qty: 30 0RF amoxicillin-pot clavulanate 875-125 mg tablet 1 tab PO BID Qty: 14 0RF Continued estradiol [Estrace] 0.01 % (0.1 mg/gram) cream 1 g vaginal .COMPLEX Qty: 42.5 4RF Rx Instructions: 1 g VG twice weekly dandelion root 525 mg capsule 525 mg PO DAILY magnesium glycinate 100 mg tablet 100 mg PO DAILY saw palmetto 160 mg capsule 160 mg PO BID Rx Instructions: give with meal/snack acetylcysteine [NAC] 600 mg capsule 600 mg PO DAILY alpha lipoic acid 100 mg capsule 100 mg PO DAILY berberine chloride 500 mg capsule 500 mg PO DAILY cannabidiol 100 mg/mL solution See Rx Instructions PO BID Patient Comments: 3 gtt PO BID; Rx Instructions: 3 gtt PO BID; cholecalciferol (vitamin D3) [Vitamin D3] 1,000 UNIT capsule 1,000 unit PO DAILY Discharge Instructions Additional Instructions: Your blood work and x-ray did not show any significant concerning findings. Follow-up with your primary care provider scheduled on Wednesday. You can use the inhaler every 4 hours 2 puffs. As needed If you feel more ill or have severe worsening shortness of breath or persistent vomiting despite the nausea medication return to the emergency department for reevaluation HPI General Mode of arrival: ambulatory . Date/Time Provider Initiated Documentation: 04/29/24 10:45 . Limitations to Documentation: no limitations . Information obtained by: patient . History of Present Illness 73 year old F presents to the emergency department with the chief complaint of cough, described as moderate, Quality is described as aching, Patient started experiencing this day(s) (6) and it has been constant. No relieving factors improve symptom(s), No exacerbating factors reported . Patient notes cough, nausea/vomiting (nausea) and shortness of breath; denies fever/chills. Patient did receive the following treatments prior to arrival, none Related Data Home Medications ?Medication ?Instructions ?Recorded ?Confirmed cholecalciferol (vitamin D3) 25 1,000 unit PO DAILY 10/16/15 04/29/24 mcg (1,000 unit) capsule (Vitamin D3) cannabidiol 100 mg/mL oral solution See Rx Instructions PO BID 06/17/18 04/29/24 estradiol 0.01% (0.1 mg/gram) 1 g vaginal .COMPLEX #42.5 grams 10/09/21 04/29/24 vaginal cream (Estrace) acetylcysteine 600 mg capsule (NAC) 600 mg PO DAILY 11/25/23 04/29/24 alpha lipoic acid 100 mg capsule 100 mg PO DAILY 11/25/23 04/29/24 berberine chloride 500 mg capsule 500 mg PO DAILY 11/25/23 04/29/24 dandelion root 525 mg capsule 525 mg PO DAILY 11/25/23 04/29/24 magnesium glycinate 100 mg (as 100 mg PO DAILY 11/25/23 04/29/24 glycinate) tablet saw palmetto 160 mg capsule 160 mg PO BID 11/25/23 04/29/24 amoxicillin 875 mg-potassium 1 tab PO BID #14 tabs 04/29/24 clavulanate 125 mg tablet ondansetron 4 mg disintegrating 4 mg PO Q8H PRN nausea and 04/29/24 tablet vomiting #30 tabs prednisone 20 mg tablet 60 mg (3 x 20 mg) PO DAILY 4 days 04/29/24 #12 tabs Previous Rx's ?Medication ?Instructions ?Recorded estradiol 0.01% (0.1 mg/gram) 1 g vaginal .COMPLEX #42.5 grams 10/09/21 vaginal cream (Estrace) amoxicillin 875 mg-potassium 1 tab PO BID #14 tabs 04/29/24 clavulanate 125 mg tablet ondansetron 4 mg disintegrating 4 mg PO Q8H PRN nausea and 04/29/24 tablet vomiting #30 tabs prednisone 20 mg tablet 60 mg (3 x 20 mg) PO DAILY 4 days 04/29/24 #12 tabs Allergies Allergy/AdvReac Type Severity Reaction Status Date / Time naproxen (From Aleve) AdvReac Intermediate Unknown Verified 04/29/24 10:46 acetaminophen (From Tylenol) AdvReac Unknown Unknown Verified 04/29/24 10:46 General Stated Complaint: GenMedical MAGI: 3 Review of Systems All systems reviewed & are unremarkable except as noted in HPI and below Constitutional Constitutional: Denies chills and Denies fever(s) Cardiovascular Cardiovascular: Denies chest pain and Reports dyspnea Respiratory Respiratory: Reports cough and Reports dyspnea Gastrointestinal Gastrointestinal: Denies abdominal pain, Reports nausea and Denies vomiting Psychiatric Psychiatric: Denies depression Exam Const General: no acute distress Orientation: alert HENMT Head: normal to inspection Ears: external ears normal General nose exam: external nose normal Mouth: moist mucous membranes Eyes General: appearance normal, both eyes and all related structures Neck Neck: normal visual inspection Resp Effort & Inspection: normal respiratory effort and able to speak in complete sentences Auscultation: rhonchi Cardio Jugular venous pressure: no JVD Rate: regular rate Heart Sounds: no murmurs GI Palpation: soft and nontender Skin General skin exam: no rashes or lesions noted Neuro General: patient alert and patient oriented x3 Extrem General: normal to inspection Psych Mental Status: mental status grossly normal Course Vital Signs Vital signs: Vital Signs Temperature 36.6 C 04/29/24 10:43 Pulse 93 H 04/29/24 10:43 Respiratory Rate 18 04/29/24 10:43 Blood Pressure 137/85 04/29/24 10:43 Pulse Oximetry 96 04/29/24 10:43 Temperature 36.6 C 04/29/24 10:47 Temperature Source Oral 04/29/24 10:47 Pulse 93 H 04/29/24 10:47 Respiratory Rate 18 04/29/24 10:47 Blood Pressure 137/85 04/29/24 10:47 Blood Pressure Position Sitting 04/29/24 10:47 Pulse Oximetry 96 04/29/24 10:47 Oxygen Delivery Method Room Air 04/29/24 10:47 Oxygen Flow Rate 0 04/29/24 10:47 Medical Decision Making 73-year-old female comes in with 6 days of persistent cough and when she is coughing feels short of breath. She says she initially had fevers that have resolved and she tested positive for the flu on Wednesday. She says her cough continues. She denies any chest pain, vomiting though she does note nausea. No rashes. No neck stiffness. She is speaking in full sentences on exam with an intermittent harsh sounding cough. She has rhonchi at the bases bilaterally. No JVD or leg swelling. Her symptoms seem consistent with a respiratory infection. Given her rhonchi we will treat with dexamethasone and DuoNeb. I will also check a Fluvid and a chest x-ray and also check CBC and CMP and reassess. Given lack of fevers and stable vitals I doubt sepsis. He has no chest pain so I doubt ACS and her symptoms seem more infectious. No tearing back pain to suggest dissection and no leg swelling or calf tenderness nor any tachycardia or hypoxia to suggest PE. Labs unremarkable, is still positive for the flu. Given she has had symptoms for over 48 hours do not feel Tamiflu indicated. X-ray does not show pneumonia but given it has been 1 week and really does not have an improvement discussed antibiotics and will proceed with this. 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) Surgical History Status post right rotator cuff repair 2009 Status post tonsillectomy late Bone spur of posterior portion of right calcaneus around 18 yo 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) Hx of hernia repair ?ventral hernia History of salpingectomy for ectopic Previous section x 2 Family History Mother Colon cancer Father Alzheimers disease Valvular heart disease Social History (Updated 12/03/23 @ 13:03 by Adela Rogers) Smoking/Tobacco Use Status: Never Second Hand Exposure: No Smoking risk assessment performed?: Yes Alcohol Intake: never Drug use: Daily Substance use type: marijuana Details: makes edibles; CBD oil daily Household members: spouse 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
[2024-04-29 12:01] LABS: COVID-19 PCR Negative (Negative); Influenza A PCR Positive (Negative); Influenza B PCR Negative (Negative); RSV PCR Negative (Negative)
[2024-04-29 12:02] LABS: Source Nasopharynx
[2024-04-29] MEDS: Albuterol/Ipratropium 3 ML UPD VIAL UPD (12:02)
[2024-04-29 12:14] LABS: HCT 39.7 % (36.0-46.0); HGB 13.1 g/dL (11.2-15.7); MCH 29.6 pg (27.0-33.0); MCV 90 fL (80-95); MPV 11.5 fL (8.0-11.0); Platelet Count 148 10^3/uL (130-400); RBC 4.43 10^6/uL (3.93-5.22); RDW 12.6 % (11.7-14.6); RDW-SD 41.9 fL; WBC 4.75 10^3/uL (4.4-10.8)
[2024-04-29 12:29] LABS: ALT 36 U/L (14-59); AST 19 U/L (15-37); Albumin 3.6 g/dL (3.4-5.0); Alkaline Phosphatase 78 U/L (46-116); Anion Gap 7.3 mmol/L (3-11); BUN 11 mg/dL (7-18); Bilirubin, Total 0.45 mg/dL (0.2-1.0); CO2 30.7 mmol/L (21.0-32.0); CREATININE 1.1 mg/dL (0.55-1.02); Calcium 8.7 mg/dL (8.5-10.1); Chloride 103 mmol/L (98-107); Estimated GFR 53.39 (mL/min/1.73m2); Glucose 114 mg/dL (74-106); Magnesium 2.1 mg/dL (1.8-2.4); Potassium 3.5 mmol/L (3.5-5.1); Sodium 141 mmol/L (136-145); Total Protein 6.8 g/dL (6.4-8.2)
[2024-04-29 12:39] LABS: Absolute Basophil Count 0.05 10^3/uL (0.0-0.2); Absolute Lymphocyte Count 2.57 10^3/uL (1.2-3.4); Absolute Monocyte Count 0.19 10^3/uL (0.1-0.8); Absolute Neutrophil Count 1.95 10^3/uL (1.2-6.7); Atypical Lymphocytes % 11 %; Diff Comment Manual Differential; RBC Morphology Normal
[2024-04-29] MEDS: Dexamethasone 10 MG/ML VIAL PO (12:44)
[2024-04-29] MEDS: Ondansetron O.D.T. 4 MG TABEF PO (12:44)
--- NOTE | 2024-04-29 13:01 | DI.VRAD_ITS ---
PROCEDURE INFORMATION: Exam: XR Chest Exam date and time: 04/29/2024 12:37 PM Age: 73 years old Clinical indication: Cough, flu + TECHNIQUE: Imaging protocol: Radiologic exam of the chest. Views: 2 views. COMPARISON: CT CHEST WO 08/19/2023 9:01 PM FINDINGS: Lungs: Lungs are clear with no infiltrate or nodule. Pleural spaces: Unremarkable. No pleural effusion. No pneumothorax. Heart/Mediastinum: Cardiomediastinal silhouette is normal. Bones/joints: Unremarkable. IMPRESSION: No active cardiopulmonary disease. Dictated and Authenticated by: Hoang Moss MD. Orderin Maddie Lacy MD
[2024-04-29] MEDS: Albuterol HFA 8 GM 60 PUFF INH IH (13:22)
[2024-04-29 13:32] VITALS: BP 146/78; PULSE 84; RESP 20; O2SAT 98
[2024-04-29] MEDS: Inhaler, Assist Device 1 EACH MC (13:32)
--- OUTSIDE RECORDS SUMMARY | 2024-04-29 13:35 | XMS_ITS | Encounter Summary ---
Author Organization [facility] [place] [place] [address] Care Team Providers Care Apprentice Name Role Phone Alisha Walker MD Primary Care Provider [phone] Encounter Details Date Type Department Care Team (Late st Contact Info) Description 12/25/2020 Orders Only [facility] [place] [address] Noemi Recio MD [facility] [place] [address] Bilateral chronic knee pain (Primary Dx) Social History Tobacco Use Types Packs/Day Years Used Date Smoking Tobacco: Never Smokeless Tobacco: Never Sex and Gender Information Value Date Recorded Sex Assigned at Not on file Gender Identity Not on file Sexual Orientation Not on file documented as of this encounter Plan of Treatment Not on file documented as of this encounter Visit Diagnoses Diagnosis Bilateral chronic knee pain- Primary Pain in joint, lower leg documented in this encounter Care Teams Apprentice Relationship Specialty Start Date End Date Alisha Walker MD [address] [place] [address] PCP - General Family Medicine 01/28/17 08/12/21 documented as of this encounter
--- OUTSIDE RECORDS SUMMARY | 2024-04-29 13:35 | XMS_ITS | Encounter Summary ---
Author Organization Count Includes [facility] Address [facility] [place] [address] Care Team Providers Care Machine Filler Name Role Phone Ann Leach ANTONIO Primary Care Provider [phone] Encounter Details Date Type Department Care Team (Latest Contact Info) Description 08/27/2021 7:00 AM EDT - 08/27/2021 11:59 PM EDT Hospital Encounter XRay at [address] [place] [address] Roxy Haskins MD [facility] [place] [address] History of total bilateral knee replacement Discharge Disposition: Home Social History Tobacco Use Types Packs/Day Years Used Date Smoking Tobacco: Never Smokeless Tobacco: Never Sex and Gender Information Value Date Recorded Sex Assigned at Not on file Gender Identity Not on file Sexual Orientation Not on file documented as of this encounter Medications at Time of Discharge Medication Sig Dispensed Refills Start Date End Date cannabidioL (Epidiolex) 100 mg/mL Solution Take by mouth 2 times daily. *Liquid Drops* 06/17/2018 cholecalciferol, Vitamin D3, 25 mcg (1,000 unit) Capsule Take 1,000 Units by mouth daily. 10/16/2015 estradioL (ESTRACE) 0.01 % (0.1 mg/gram) Cream Place vaginally. 10/07/2020 documented as of this encounter Plan of Treatment Not on file documented as of this encounter Procedures Procedure Name Priority Date/Time Associated Diagnosis Comments XR KNEE STANDING ALIGNMENT AP LAT SKYLINE BILAT Routine 08/27/2021 7:28 AM EDT History of total bilateral knee replacement documented in this encounter Results * XR Knee Standing Alignment AP Lat Garfield Bilat (08/27/2021 7:28 AM EDT) Anatomical Region Laterality Modality Knee Bilateral Digital Radiogra phy Impressions 08/27/2021 9:34 AM EDT Status post bilateral patellofemoral compartment total arthroplasty without radiographic finding of complication or acute abnormality. Thank you for letting us participate in the care of this patient. ??If you are a health care provider and have any questions regarding this report, please contact the number below. ??For patients who have questions please contact the health inpatient care manager rn that requested your imaging first. ? Electronically signed by: Laura Benavidez MD, [facility] ([phone]), at 08/27/2021 9:34 AM Narrative 08/27/2021 9:34 AM EDT EXAMINATION: XR KNEE STANDING ALIGNMENT AP LAT SKYLINE BILAT CLINICAL HISTORY: bilat TKA TECHNIQUE: Separate images of the pelvis, knees and feet were acquired in the AP projection with the patient standing. ??These images were stitched together to form a composite image of the pelvis and legs. Bilateral AP, skyline and lateral knee radiographs are included. COMPARISON: Radiographs July 08 and March 20, 2021 FINDINGS: Survey: Bones are intact. Spacing and alignment are preserved at the hips, pubic symphysis and ankles. No focal soft tissue abnormality. Right knee: Patellofemoral arthroplasty hardware is intact without adjacent lucency, change in position, periprosthetic fracture or joint malalignment. Resolved joint effusion and anterior knee soft tissue edema. Left knee: Patellofemoral arthroplasty hardware is intact without adjacent lucency, periprosthetic fracture, change in position or joint malalignment. No effusion. Alignment: Right mechanical axis passes through the mesial aspect of lateral compartment. Left mechanical axis passes through the mesial aspect of lateral compartment. Procedure Note Laura Benavidez MD - 08/27/2021 EXAMINATION: XR KNEE STANDING ALIGNMENT AP LAT SKYLINE BILAT CLINICAL HISTORY: bilat TKA TECHNIQUE: Separate images of the pelvis, knees and feet were acquired inthe AP projection with the patient standing. These images were stitched togetherto form a composite image of the pelvis and legs. Bilateral AP, skyline andlateral knee radiographs are included. COMPARISON: Radiographs July 08 and March 20, 2021 FINDINGS: Survey: Bones are intact. Spacing and alignment are preserved at the hips,pubic symphysis and ankles. No focal soft tissue abnormality. Right knee: Patellofemoral arthroplasty hardware is intact withoutadjacent lucency, change in position, periprosthetic fracture or jointmalalignment. Resolved joint effusion and anterior knee soft tissue edema. Left knee: Patellofemoral arthroplasty hardware is intact withoutadjacent lucency, periprosthetic fracture, change in position or jointmalalignment. No effusion. Alignment: Right mechanical axis passes through the mesial aspect of lateralcompartment. Left mechanical axis passes through the mesial aspect of lateralcompartment. IMPRESSION Status post bilateral patellofemoral compartment total arthroplastywithout radiographic finding of complication or acute abnormality. Thank you for letting us participate in the care of this patient. If youare a health care provider and have any questions regarding this report,please contact the number below. For patients who have questions please contactthe health inpatient care manager rn that requested your imaging first. Electronically signed by: Laura Benavidez MD, [facility]([phone]), at 08/27/2021 9:34 AM Roxy Haskins MD IMG DX ORDERABLES documented in this encounter Visit Diagnoses Diagnosis History of total bilateral knee replacement documented in this encounter Care Teams Machine Filler Relationship Specialty Start Date End Date Ann Leach APRN [address] [place] [id number] PCP - General Family Medicine 08/13/21 documented as of this encounter
--- OUTSIDE RECORDS SUMMARY | 2024-04-29 13:35 | XMS_ITS | Encounter Summary ---
[place] [address] Care Team Providers Care Musical Therapist Name Role Phone Ann Leach APRN Primary Care Provider [phone] Encounter Details Date Type Department Care Team (Latest Contact Info) Description 08/17/2022 Travel Social History Tobacco Use Types Packs/Day Years Used Date Smoking Tobacco: Never Smokeless Tobacco: Never Sex and Gender Information Value Date Recorded Sex Assigned at Not on file Gender Identity Not on file Sexual Orientation Not on file documented as of this encounter Plan of Treatment Not on file documented as of this encounter Visit Diagnoses Not on filedocumented in this encounter Care Teams Musical Therapist Relationship Specialty Start Date End Date Ann Leach APRN [address] [place] [address] PCP - General Family Medicine 08/13/21 documented as of this encounter
--- OUTSIDE RECORDS SUMMARY | 2024-04-29 13:35 | XMS_ITS | Encounter Summary ---
[place] [address] Care Team Providers Care Alining Inspector Name Role Phone Ann Leach APRN Primary Care Provider [phone] Reason for Referral * Consultation (Routine) - Closed Specialty Diagnoses / Procedures Referred By Contac t Referred To Contact [facility] Diagnoses Pain, lumbar region Osteoporosis, unspecified osteoporosis type, unspecified pathological fracture presence low back pain / L2 vertebral fx / CT abd & Pelvis & Lumbar resconstruction 07/12/22 in eD Ann Leach APRN [address] [place] [address] [facility] [place] [address] Referral ID Status Reason Start Date Expiration Date V isits Requested Visits Authorized [id number] Closed Consult, Test & Treat PCP Updated and/or Approved 07/18/2022 07/18/2023 6 6 Encounter Details Date Type Department Care Team (Latest Contact Info) Description 07/18/2022 Transcribe Orders eD Incoming Referrals [phone] Ann Leach APRN [address] [place], [place] [id number] Pain, lumbar region; Osteoporosis, unspecified osteoporosis type, unspecified pathological fracture presence Social History Tobacco Use Types Packs/Day Years Used Date Smoking Tobacco: Never Smokeless Tobacco: Never Sex and Gender Information Value Date Recorded Sex Assigned at Not on file Gender Identity Not on file Sexual Orientation Not on file documented as of this encounter Plan of Treatment Scheduled Referrals Name Type Priority Associated Diagnoses Orde r Schedule Referral to Spine Center Outpatient Referral Routine Pain, lumbar region Osteoporosis, unspecified osteoporosis type, unspecified pathological fracture presence Ordered: 07/18/2022 documented as of this encounter Visit Diagnoses Diagnosis Pain, lumbar region Lumbago Osteoporosis, unspecified osteoporosis type, unspecified pathological fracture presence documented in this encounter Care Teams Alining Inspector Relationship Specialty Start Date End Date Ann Leach APRN [address] [place] [id number] PCP - General Family Medicine 08/13/21 documented as of this encounter
--- OUTSIDE RECORDS SUMMARY | 2024-04-29 13:35 | XMS_ITS | Encounter Summary ---
[place] [address] Care Team Providers Care Teasel Gig Operator Name Role Phone Alisha Walker MD Primary Care Provider [phone] Encounter Details Date Type Department Care Team (Late st Contact Info) Description 10/29/2020 Telephone [facility] [place] [address] Carlota Blair, RN Social History Tobacco Use Types Packs/Day Years Used Date Smoking Tobacco: Never Smokeless Tobacco: Never Sex and Gender Information Value Date Recorded Sex Assigned at Not on file Gender Identity Not on file Sexual Orientation Not on file documented as of this encounter Miscellaneous Notes * Telephone Encounter - Carlota Blair RN - 10/29/2020 2:22 PM EDT In coming call from [employer] in [facility] needs the Volterin Gel order to be more specific. They want to know where on the body to put it, the grams to apply and how many times per day. documented in this encounter Plan of Treatment Not on file documented as of this encounter Visit Diagnoses Not on filedocumented in this encounter Care Teams Teasel Gig Operator Relationship Specialty Start Date End Date Alisha Walker MD [address] [place] [address] PCP - General Family Medicine 01/28/17 08/12/21 documented as of this encounter
--- OUTSIDE RECORDS SUMMARY | 2024-04-29 13:35 | XMS_ITS | Encounter Summary ---
Author Organization [facility] [place] [place] [address] Care Team Providers Care Stitcher Tape Controlled Machine Name Role Phone Alisha Walker MD Primary Care Provider [phone] Encounter Details Date Type Department Care Team (Late st Contact Info) Description 11/20/2020 12:00 PM EDT Ancillary [place] [address] Noemi Recio MD [facility] [place] [address] Pain Social History Tobacco Use Types Packs/Day Years Used Date Smoking Tobacco: Never Smokeless Tobacco: Never Sex and Gender Information Value Date Recorded Sex Assigned at Not on file Gender Identity Not on file Sexual Orientation Not on file documented as of this encounter Plan of Treatment Pending Results Name Type Priority Associated Diagnoses Date /Time Film Library- Storage Only pain Clinic C-Arm Imaging Storage Only Routine Pain 11/20/2020 7:25 AM EDT documented as of this encounter Visit Diagnoses Diagnosis Pain Generalized pain documented in this encounter Care Teams Stitcher Tape Controlled Machine Relationship Specialty Start Date End Date Alisha Walker MD [address] [place] [address] PCP - General Family Medicine 01/28/17 08/12/21 documented as of this encounter
--- OUTSIDE RECORDS SUMMARY | 2024-04-29 13:35 | XMS_ITS | Encounter Summary ---
[place] [address] Care Team Providers Care Design Sales Consultant Name Role Phone Alisha Walker MD Primary Care Provider [phone] Reason for Visit * Reason Onset Date Comments Medical Care Coordination 12/11/2020 Encounter Details Date Type Department Care Team (Late st Contact Info) Description 12/11/2020 Telephone [place] [id number] Fernando Joshi LNA Medical Care Coordination Social History Tobacco Use Types Packs/Day Years Used Date Smoking Tobacco: Never Smokeless Tobacco: Never Sex and Gender Information Value Date Recorded Sex Assigned at Not on file Gender Identity Not on file Sexual Orientation Not on file documented as of this encounter Miscellaneous Notes * Telephone Encounter - Fernando Joshi LNA - 12/11/2020 2:05 PM EDT Contact made with patient or sales representative groceries as identified in contacts 1. Patient instructed to arrive at [facility] on 12/13 with their car pick up driver for their Genicular Nerve Block procedure. Please plan to spend about 2 hours at the center. (3 hours for RFA) 2. Has pt started any new medications or supplements in the past two weeks? No 3. Have any of the following occurred within the two weeks before the procedure date? a. Patient is having a Covid vaccine or other vaccine No b. Patient has been exposed to anybody with a contagious illness such as Covid, flu, No c. Patient is taking antibiotics to treat an infection No d. Patient has any skin rashes, breakdown, blisters or open wounds No e. Patient has had any hospitalizations, ED visits, surgery, other procedure, dental procedure No f. Patient has taken oral steroids or had a steroid injection No g. Does patient have any of the following symptoms that are NEW and NOT explained by another healthcondition: fever or chills, cough, shortness of breath or difficulty breathing, fatigue, muscle or body aches, headache, new loss of taste or smell, sore throat, congestion or runny nose, nausea or vo miting, diarrhea. No If yes, the patient has been directed to the [facility] hotline for testing prior to their procedure. (route telephone note to: [facility] covid 19 nurse triage with routing comment stating pt needs covid test prior to procedure and give date of procedure, add name and MRN to tracking tool). h. Has the patient's pain resolved or significantly improved such as a rating of 3/10 or less? No 4. Was patient instructed to stop any medications? No if yes: a. Name of medication(s): b. Confirm date of last dose: 5. Is patient having a nerve block: Yes a. If yes instructed to not take any pain medication for 12 hours before your procedure. 6. Patient instructed to take any prescribed medications that they were not told to stop, especially blood pressure medication, because their procedure may be cancelled if their blood pressure is toohigh. 7. Was patient instructed to follow NPO guidelines: No if yes, the following instructions were reviewed: a. You may eat up to 6 hours before your procedure b. You may have clear liquids only up to 2 hours before your procedure: water, apple juice, lu toby, sprite, popsicles, broth, tea or coffee plain or with sweetener, absolutely no dairy products, no milk including soy, oat, almond. Patient expressed understanding and agreement with instructions Yes Patient denies further questions Yes documented in this encounter Plan of Treatment Not on file documented as of this encounter Visit Diagnoses Not on filedocumented in this encounter Care Teams Design Sales Consultant Relationship Specialty Start Date End Date Alisha Walker MD [address] [place] [address] PCP - General Family Medicine 01/28/17 08/12/21 documented as of this encounter
--- OUTSIDE RECORDS SUMMARY | 2024-04-29 13:35 | XMS_ITS | Encounter Summary ---
Author Organization [facility] [place] [address] Care Team Providers Care Textbook Associate Name Role Phone Ann Leach APRN Primary Care Provider [phone] Reason for Visit * Reason Comments Establish Care B Rafael Knee 03/05/21 ([place]) * Consultation (Routine) - Closed Specialty Diagnoses / Procedures Referred By Annalee panchal Referred To Contact Orthopaedics Diagnoses Pain in right knee Unilateral primary osteoarthritis, unspecified knee BILATERAL PARTIAL KNEE REPLACEMENT 03/05/2021 -2ND OPINION Ann Leach APRN [address] [place] [address] [facility] [address] [place] [id number] Referral ID Status Reason Start Date Expiration Date V isits Requested Visits Authorized [id number] Closed Consult, Test & Treat PCP Updated and/or Approved 08/04/2021 08/04/2022 12 12 Encounter Details Date Type Department Care Team (Late st Contact Info) Description 08/27/2021 8:00 AM EDT Office [place] [address] Francisco Mcginnis MD [facility] [place] [address] History of total bilateral knee replacement; Chronic pain of both knees Social History Tobacco Use Types Packs/Day Years Used Date Smoking Tobacco: Never Smokeless Tobacco: Never Sex and Gender Information Value Date Recorded Sex Assigned at Not on file Gender Identity Not on file Sexual Orientation Not on file documented as of this encounter Last Filed Vital Signs Vital Sign Reading Time Taken Comments Blood Pressure 134/66 08/27/2021 8:06 AM EDT Pulse 87 08/27/2021 8:06 AM EDT Temperature - - Respiratory Rate - - Oxygen Saturation - - Inhaled Oxygen Concentration - - Weight 90.2 kg (198 lb 12.8 oz) 08/27/2021 8:06 AM EDT Height 166.4 cm (5' 5.5) 08/27/2021 8:06 AM EDT Body Mass Index 32.58 08/27/2021 8:06 AM EDT documented in this encounter Progress Notes * Francisco Mcginnis MD - 08/27/2021 8:00 AM EDT Date of Encounter: 08/27/21 Arthroplasty History: 1. 03/05/[address] Valero CC: bilateral knee pain and continued disability Ángela Haines is a 70 y F who underwent the above surgery for bilateral severe patellofemoral osteoarthritis. She is now 6 months out from the surgery. She is very frustrated by continued disability with her knees. She is unable to get up from sitting on the floor and she continues to have difficulty with stairs, especially descending. Her surgeries were done under one anesthesia and she was discharged home same day. She reports struggling at home to get out of bed and relied on her for many of her ADLs. She reports needingto watch YouTube videos to learn how to get out of bed. She participated in physical therapy until May when she reports being told there was nothing more they could do. She was frustrated that she had not reached her stated goal of being able to get up from the floor. Prior to surgery she was referred to the pain clinic for Geniculate nerve ablation but had difficulty tolerating the lidocaine challenge and when she was told that would need to be repeated to qualify for the actual ablation she declined further pain intervention and opted to move forward with surgery. She had an adverse drug reaction to tylenol (causes lethargy). She said that she had trouble with her knees for years but had learned to live with the pain and discomfort and had effectively modified her activity. She wanted to be able to sit on her heels with her knees on the floor after surgery but was told this was not a reasonable expectation. She is currently using topical analgesic creams and pursuing treatment with essential oils. Her PMH, medications and allergies were reviewed and updated in the EMR today. Her ROS is negative for fevers or chills. General Health, Prior Treatments, PreExisting Condition, Health Habits, About You 08/27/2021 PROMIS-10 General Health Good PROMIS-10 Quality of Life Fair PROMIS-10 Physical Health Good PROMIS-10 Mental Health Good PROMIS-10 Social Activity Good PROMIS-10 Everyday Activities A little PROMIS-10 Pain 7 PROMIS-10 Fatigue Mild PROMIS-10 Social Roles Good PROMIS-10 Anxious or Depressed Rarely PROMIS PHYSICAL SCORE (range 16-68) 37.4 PROMIS MENTAL SCORE (range 21-68) 43.5 Treatments Tried Physical therapy, Prior surgery for this problem KOOS JR Scores 57.14 TKA Grade 1 Alzheimers or dementia No Cirrohosis or liver disease No HIV/AIDS No Pain in more than one joint in legs No Back or neck pain Yes Heart attack No Heart failure No Unclog/bypass leg arteries No Stroke, blood clot, TIA No Asthma No Emphysema, chronic bronchities, or COPD No Stomach ulcers/peptic ulcer disease No Diabetes No Poor kidney function No Rheumatic condtions No Cancer No Weight (lbs) 187 Height (feet) 5 feet Height (Inches) 5 BMI 31.12 (Obese) Ever used tobacco products No Ever used alcoholic beverages No Live Alone No Marital situation Schooling More than 4 - year college Combined Household Income Don't know / Not sure # People Supported 2 [place], , No, not R[place]andan// Race White Health Literacy A little bit Currently working Yes Current job situation Part-time for other reasons [facility] Response 08/27/2021 KOOS JR Scores 57.14 Spine [facility] Response 08/27/2021 KOOS JR Scores 57.14 BP 134/66 (BP Location (NBP): Left arm, Patient Position: Sitting, BP Cuff Sizes: Large Adult (32-43 cm)) Pulse 87 Ht 166.4 cm (5' 5.5) Wt 90.2 kg (198 lb 12.8 oz) BMI 32.58 kg/m?? NAD. Gait is normal. Bilateral knee aROM is 0-110. She can passively achieve 120 degrees bilaterally. Both knees are stable to v/v and A/P drawer stress. Both patella track normally and have normal mobility. Well healed anterior surgical scars bilaterally. Both LE are distally neurovasc intact and well perfused. Imaging: Updated XR are obtained today and personally reviewed by me. She has bilateral neutral alignment with uncemented arthrosurface PFA and cemented patellar buttons. Both implants are appropriately positioned and without evidence of complication. On the sunrise view there is increased lateral p atellar tilt bilaterally, left greater than right. No effusion noted in either knee. Ángela Haines is a 70 y F who presents for second opinion regarding continued pain and disability after bilateral PFA with Dr. Valero. I do not see any clinical or radiographic evidence of complication with her soft tissue or hardware, although her lateral patellar tilt is somewhat increased from pre-op. I reviewed with her that recovery from bilateral knee replacement surgery, even PFA, cantake months and is typically a much longer recovery than single knee replacement. I think the biggest problem here has been with expectation management and that with continued time and effort she will effectively achieve the goals she has set for herself. I do not see any current indications for fur ther surgical intervention. I did offer a referral to [facility] physical therapy but the patient is not interested in travelling. I encouraged her to pursue exercise with whole body activities that she enjoys, such as walking, kayaking, swimming, or cycling, rather that focusing on muscle-specific exercise. I am happy to see her for any further desired f/u as needed. documented in this encounter Plan of Treatment Not on file documented as of this encounter Visit Diagnoses Diagnosis History of total bilateral knee replacement Chronic pain of both knees documented in this encounter Care Teams Textbook Associate Relationship Specialty Start Date End Date Ann Leach APRN [address] [place] [address] PCP - General Family Medicine 08/13/21 documented as of this encounter
--- OUTSIDE RECORDS SUMMARY | 2024-04-29 13:35 | XMS_ITS | Encounter Summary ---
[place] [address] Care Team Providers Care Environmental Restoration Planner Name Role Phone Alisha Walker MD Primary Care Provider [phone] Encounter Details Date Type Department Care Team (Late st Contact Info) Description 11/18/2020 Telephone [place] [id number] Laurel Levin RN Social History Tobacco Use Types Packs/Day Years Used Date Smoking Tobacco: Never Smokeless Tobacco: Never Sex and Gender Information Value Date Recorded Sex Assigned at Not on file Gender Identity Not on file Sexual Orientation Not on file documented as of this encounter Miscellaneous Notes * Telephone Encounter - Laurel Levin RN - 11/18/2020 1:52 PM EDT Ángela Iraida Yancy :1950 Contact made with patient: I spoke to Ms. Haines at 1:53 PM regarding her upcoming Bilateral Genicular Nerve Block scheduled on 11/20/2020 (date) scheduled at 1200 (time) with Dr. Noemi Recio MD. Medication and Allergy reconciliation: 1. Changes were made in the telephone encounter per patient; marked as reviewed, and closed. 2. Patient confirmed no IVP dye allergy. 3. Have you had any steroid injections anywhere in your body within the last two weeks? no Arrival time: The patient was instructed to arrive at 1130 (30 minutes prior to procedure start time - 60 minutesprior for RF patients with a pacemaker) on 11/20/2020 (date of procedure). Health Lead: The patient was reminded that they need to have a farm truck driver accompany them to her procedure who will remain onsite. Antibiotics/Skin assessment/Illness symptoms/Pain level assessment : 1. The patient confirmed that she is not taking antibiotics at this time. 2. The patient confirmed that she does not have any rashes, blisters, or skin breakdown on their body. 3. The patient confirmed that she does not have any active infections. 4. The patient confirmed that she does not have any symptoms of illness: fever, chills, cold, flu, nausea, vomiting. 5. The patient confirmed that she isstill experiencing significant pain. (Significant pain is defined as interfering with performing ADL.) Current pain: 10/10 Pain and Anti-anxiety Medications: 1. Nerve Block Procedure Patients: Patient was instructed NOT to take their pain medications on theday of the procedure and anti-anxiety medications are part of their daily medication regiment; theycan and should continue taking that medication. 2. All Other Procedure Patients: The patient was instructed that if they take daily pain or anti-anxiety medications, they can and should continue taking on the day of the procedure. Does patient have history of any diagnosed bleeding disorders: No Anticoagulants: No NPO instructions given to patient: 1. Last solid food intake until (6 hours prior to procedure). 2. Clear liquids (lu toby, tea, black coffee, water, grape juice, apple juice, or cranberry juice) only intake until (2 hours prior to procedure). NSAIDs: Does the patient take Aspirin/ASA? Yes Can continue to take Apirin Does the patient take an NSAID? No The patient confirmed that she discontinued taking NA on NA (date). Diabetic instructions: NA Patient was advised to inform their PCP regarding safe fasting and the NPO requirements for their upcoming procedure and given the [facility] Nurse Triage Line . Implant: Patient has pacemaker/defibrillator: No Prior to checking in at [employer] [facility], please be sure to empty your bladder. Patient confirmed understanding that if they do not follow the above their instructions, their procedure is likely to be cancelled. LAZARO Guzman documented in this encounter Plan of Treatment Not on file documented as of this encounter Visit Diagnoses Not on filedocumented in this encounter Care Teams Environmental Restoration Planner Relationship Specialty Start Date End Date Alisha Walker MD [address] [place] [address] PCP - General Family Medicine 01/28/17 08/12/21 documented as of this encounter
--- OUTSIDE RECORDS SUMMARY | 2024-04-29 13:35 | XMS_ITS | Encounter Summary ---
Author Organization [facility] [place] [address] Care Team Providers Care Home Health Aid Name Role Phone HanyJoannAnn Sal ALVAREZ Primary Care Provider [phone] Encounter Details Date Type Department Care Team (Latest Contact Info) Description 10/21/2022 12:13 PM EDT - 10/21/2022 11:59 PM EDT Hospital Encounter XRay at [address] [place] [address] Sydni Silva APRN [facility] [place] [address] Closed compression fracture of L2 lumbar vertebra with routine healing, subsequent encounter Discharge Disposition: Home Social History Tobacco Use Types Packs/Day Years Used Date Smoking Tobacco: Never Smokeless Tobacco: Never Sex and Gender Information Value Date Recorded Sex Assigned at Not on file Gender Identity Not on file Sexual Orientation Not on file documented as of this encounter Medications at Time of Discharge Medication Sig Dispensed Refills Start Date End Date UNABLE TO FIND daily. NAC metFORMIN XR (Glucophage XR) 500 mg ER 24 hr tablet TAKE 1 TABLET DAILY FOR 1 WEEK, 2 TABLET DAILY X 1 WEEK, THEN 3 TABLET DAILY FOR 1 WEEK THEN 4 TABLET DAILY 07/15/2022 cannabidioL (Epidiolex) 100 mg/mL Solution Take by [...] Name Priority Date/Time Associated Diagnosis Comments XR LUMBAR SPINE AP FLEXION AND EXTENSION ONLY Routine 10/21/2022 12:33 PM EDT Closed compression fracture of L2 lumbar vertebra with routine healing, subsequent encounter documented in this encounter Results * XR Lumbar Spine AP Flexion and Extension Only (10/21/2022 12:33 PM EDT) Anatomical Region Laterality Modality L-spine N/A Digital Radiogra phy Impressions 10/21/2022 4:34 PM EDT Progression of vertebral body height loss associated with L2 superior endplate fracture, as described. Unchanged degenerative disc disease and facet arthropathy of the lower lumbar spine. Thank you for letting us participate in the care of this patient. ??If you are a health care provider and have any questions regarding this report, please contact the number below. ??For patients who have questions please contact the health post acute care registered nurse that requested your imaging first. ? Narrative 10/21/2022 4:34 PM EDT EXAMINATION: XR LUMBAR SPINE AP FLEXION AND EXTENSION ONLY CLINICAL HISTORY: low back pain r/o progression of L2 compresion fX TECHNIQUE: Flexion and extension lateral views of the lumbar spine AP view of the lumbar spine COMPARISON: CT abdomen and pelvis 07/12/2022. FINDINGS: There is diffuse osseous demineralization. The last rib-bearing vertebral body corresponds to T12. There are 5 nonrib-bearing lumbar-type vertebral bodies. There is mild leftward curvature of the lumbar spine. There is a compression fracture of the superior endplate of L2 with approximately 43% vertebral body height loss, previously 17% vertebral body height loss. No other sites of focal vertebral body height loss. No listhesis or abnormal motion in flexion and extension. Unchanged disc space narrowing at L5-S1. Unchanged facet arthropathy L4-5 and L5-S1. Procedure Note Yolanda Melvin MD - 10/21/2022 EXAMINATION: XR LUMBAR SPINE AP FLEXION AND EXTENSION ONLY CLINICAL HISTORY: low back pain r/o progression of L2 compresion fX TECHNIQUE: Flexion and extension lateral views of the lumbar spine AP view of thelumbar spine COMPARISON: CT abdomen and pelvis 07/12/2022. FINDINGS: There is diffuse osseous demineralization. The last rib-bearing vertebral body corresponds to T12. There are 5 nonrib-bearing lumbar-type vertebral bodies. There is mild leftwardcurvature of the lumbar spine. There is a compression fracture of the superior endplate of L2 with approximately 43% vertebral body height loss, previously 17% vertebralbody height loss. No other sites of focal vertebral body height loss. No listhesis orabnormal motion in flexion and extension. Unchanged disc space narrowing at L5-S1. Unchanged facet arthropathy L4-5and L5-S1. IMPRESSION Progression of vertebral body height loss associated with L2 superiorendplate fracture, as described. Unchanged degenerative disc disease and facet arthropathy of the lowerlumbar spine. Thank you for letting us participate in the care of this patient. If youare a health care provider and have any questions regarding this report,please contact the number below. For patients who have questions please contactthe health post acute care registered nurse that requested your imaging first. Electronically signed by: Yolanda Melvin MD, [facility]([phone]), at 10/21/2022 4:34 PM Sydni Silva APRN IMG DX ORDERABLES documented in this encounter Visit Diagnoses Diagnosis Closed compression fracture of L2 lumbar vertebra with routine healing, subsequent encounter documented in this encounter Care Teams Home Health Aid Relationship Specialty Start Date End Date Ann Leach APRN [address] [place] [address] PCP - General Family Medicine 08/13/21 documented as of this encounter
--- OUTSIDE RECORDS SUMMARY | 2024-04-29 13:35 | XMS_ITS | Encounter Summary ---
[facility] [place] [address] Care Team Providers Care Skiver Machine Operator Name Role Phone Ann Leach APRN Primary Care Provider [phone] Encounter Details Date Type Department Care Team (Late st Contact Info) Description 08/26/2021 Orders [place] [address] Francisco Mcginnis MD [facility] [place] [address] Chronic pain of both knees Social History Tobacco Use Types Packs/Day Years Used Date Smoking Tobacco: Never Smokeless Tobacco: Never Sex and Gender Information Value Date Recorded Sex Assigned at Not on file Gender Identity Not on file Sexual Orientation Not on file documented as of this encounter Plan of Treatment Not on file documented as of this encounter Visit Diagnoses Diagnosis Chronic pain of both knees documented in this encounter Care Teams Skiver Machine Operator Relationship Specialty Start Date End Date Ann Leach APRN [address] [place] [address] PCP - General Family Medicine 08/13/21 documented as of this encounter
--- OUTSIDE RECORDS SUMMARY | 2024-04-29 13:35 | XMS_ITS | Encounter Summary ---
[place] [address] Care Team Providers Care Night Worker Name Role Phone Ann Leach APRN Primary Care Provider [phone] Reason for Referral * Psychiatric (Routine) - Closed Specialty Diagnoses / Procedures Referred By Annalee t Referred To Contact Psychiatry Diagnoses Body dysmorphic disorder Anxiety disorder, unspecified Ann Leach APRN [address] [place] [address] [facility] [place] [address] Referral ID Status Reason Start Date Expiration Date V isits Requested Visits Authorized [id number] Closed Consult, Test & Treat PCP Updated and/or Approved 06/01/2023 05/31/2024 12 12 Encounter Details Date Type Department Care Team (Latest Contact Info) Description 06/07/2023 Transcribe Orders eDH Incoming Referrals [phone] Ann Leach APRN [address] [place] [address] Body dysmorphic disorder Social History Tobacco Use Types Packs/Day Years Used Date Smoking Tobacco: Never Smokeless Tobacco: Never Sex and Gender Information Value Date Recorded Sex Assigned at Not on file Gender Identity Not on file Sexual Orientation Not on file documented as of this encounter Plan of Treatment Scheduled Referrals Name Type Priority Associated Diagnoses Order Schedule Referral to Neuropsychology Outpatient Referral Routine Body dysmorphic disorder Ordered: 06/07/2023 documented as of this encounter Visit Diagnoses Diagnosis Body dysmorphic disorder Hypochondriasis documented in this encounter Care Teams Night Worker Relationship Specialty Start Date End Date Ann Leach APRN [address] [place] [address] PCP - General Family Medicine 08/13/21 documented as of this encounter
--- OUTSIDE RECORDS SUMMARY | 2024-04-29 13:35 | XMS_ITS | Encounter Summary ---
Author Organization [facility] [place] [address] Care Team Providers Care Licensed Marine Engineer Name Role Phone Alisha Walker MD Primary Care Provider [phone] Encounter Details Date Type Department Care Team (Late st Contact Info) Description 11/20/2020 12:00 PM EDT Ancillary [place] [address] Noemi Recio MD [facility] [place] [address] Pain Social History Tobacco Use Types Packs/Day Years Used Date Smoking Tobacco: Never Smokeless Tobacco: Never Sex and Gender Information Value Date Recorded Sex Assigned at Not on file Gender Identity Not on file Sexual Orientation Not on file documented as of this encounter Plan of Treatment Pending Results Name Type Priority Associated Diagnoses Date /Time Film Library- Storage Only Pain Clinic Ultrasound Imaging Storage Only Routine Pain 11/20/2020 7:39 AM EDT documented as of this encounter Visit Diagnoses Diagnosis Pain Generalized pain documented in this encounter Care Teams Licensed Marine Engineer Relationship Specialty Start Date End Date Alisha Walker MD [address] [place] [address] PCP - General Family Medicine 01/28/17 08/12/21 documented as of this encounter
--- OUTSIDE RECORDS SUMMARY | 2024-04-29 13:35 | XMS_ITS | Encounter Summary ---
[place] [address] Care Team Providers Care Intake Specialist Name Role Phone Ann Leach APRN Primary Care Provider [phone] Encounter Details Date Type Department Care Team (Latest Contact Info) Description 10/21/2022 Travel Social History Tobacco Use Types Packs/Day [...] on filedocumented in this encounter Care Teams Intake Specialist Relationship Specialty Start Date End Date Ann Leach APRN [address] [place] [address] PCP - General Family Medicine 08/13/21 documented as of this encounter
--- OUTSIDE RECORDS SUMMARY | 2024-04-29 13:35 | XMS_ITS | Encounter Summary ---
Author Organization [facility] [place] [address] Care Team Providers Care Maintenance Mechanic Telephone Name Role Phone Alisha Walker MD Primary Care Provider [phone] Encounter Details Date Type Department Care Team (Latest Contact Info) Description 12/13/2020 12:30 PM EDT - 12/13/2020 1:35 PM EDT Hospital [place] [address] Noemi Recio MD [facility] [address] [place] [address] Primary osteoarthritis of both knees; Chronic pain of both knees; Bilateral chronic knee pain Discharge Disposition: Home Social History Tobacco Use Types Packs/Day Years Used Date Smoking Tobacco: Never Smokeless Tobacco: Never Sex and Gender Information Value Date Recorded Sex Assigned at Not on file Gender Identity Not on file Sexual Orientation Not on file documented as of this encounter Last Filed Vital Signs Vital Sign Reading Time Taken Comments Blood Pressure 177/104 12/13/2020 1:25 PM EDT Pulse - - Temperature - - Respiratory Rate 21 12/13/2020 12:53 PM EDT Oxygen Saturation 100% 12/13/2020 1:25 PM EDT Inhaled Oxygen Concentration - - Weight 68 kg (150 lb) 12/13/2020 12:53 PM EDT Height - - Body Mass Index - - documented in this encounter Discharge Instructions * Discharge Instructions* Arden James 12/13/2020 1:31 PM EDT Pain Management Center Discharge Instructions: You were seen today by Surgeon(s): Noemi Recio MD Krause, Balaji Blanc MD The following was performed: Procedure(s) (LRB): INJECTION,ANESTHETIC AGENT(S) AND/OR STEROID,GENICULAR NERVE BRANCHES,INCLUDING IMAGING (Bilateral) It is normal that the injection site will be sore for up to 48 hours. [x] You may also experience mild stiffness in the joint near the injection site. You may resume your normal activities: tomorrow. You may shower today. DO NOT tub bathe, use whirlpools, hot tubs or pool therapy for 2 days. RemoveBand-Aid(s) later today/tomorrow. Do not drive until tomorrow. Use caution walking/climbing stairs as you may be unsteady on your feet. You may use your usual medications, including pain medications, as directed, unless otherwise instructed. You may use an ice pack as needed for the first 24 hours, on for 20 minutes then off for 20 minutes. Do not apply heat today. {CHECK BOX SELECTION:43815} You received medication through an intravenous line to lessen the anxiety/pain of your procedure. DO NOT operate heavy or dangerous equipment/tools, or sign important papers today. Attempt to empty your bladder 4-6 hours after your procedure. {CHECK BOX SELECTION:98896} If you have diabetes, monitor your blood sugars frequently. If your blood sugar increases and is of concern, contact your Primary Care Provider. You received the following medications: Medications Given During Procedure Date/Time Order Dose Route Action 12/13/2020 1323 BUpivacaine (pf) (Marcaine) (5 mg/mL) 0.5% injection 4 mL Other Given During regular business hours, please phone the Pain Management Center at with any questions or if the following or other troubling symptoms develop: 1) Prolonged dizziness or weakness (more than 1 day). 2) Localized swelling, redness or drainage at the injection site(s). 3) Temperature of 101 degrees that lasts for more than 4 hours. After 5 PM or on weekends, call and ask for Pain Clinic provider on-call. If you are unable to reach the Pain Management Center and have a complication, please call your Primary Care Provider or proceed to your local emergency department. Arden James Special instructions documented in this encounter Medications at Time of Discharge Medication Sig Dispensed Refills Start Date End Date cannabidioL (Epidiolex) 100 mg/mL Solution Take by mouth 2 times daily. *Liquid Drops* 06/17/2018 cholecalciferol, Vitamin D3, 25 mcg (1,000 unit) Capsule Take 1,000 Units by mouth daily. 10/16/2015 estradioL (ESTRACE) 0.01 % (0.1 mg/gram) Cream Place vaginally. 10/07/2020 diclofenac (VOLTAREN) 1 % Gel Apply to bilateral knees up to three times daily. 3 Tube 5 10/29/2020 08/27/2021 documented as of this encounter H&P Notes * Balaji Desouza MD - 12/12/2020 9:40 PM EDT Patient Name: Ángela Haines Patient Age: 70 y.o. Birthdate: 1950 Admit date: 12/13/2020 Attending Physician: Noemi Recio MD PREPROCEDURE HISTORY AND PHYSICAL Date of Visit: December 13, 2020 Chief Complaint: B/L knee pain HPI: Ángela Haines is a 70 y.o. female who presents today for b/l genicular nerve blocks with a diagnosis of 1. Primary osteoarthritis of both knees 2. Chronic pain of both knees 3. Bilateral chronic knee pain resulting in symptoms of B/L knee pain. The history is obtained from the patient, and I have reviewed medical records provided by the referring physician and located in the electronic medical record to fill in gaps in the patient's recollection of events, treatments and outcomes. LOCATION: B/L knee pain. PAIN LEVEL RIGHT KNEE 9/10 LEFT KNEE 10/10 PAST MEDICAL HISTORY: Past Medical History: Diagnosis Date ??? Chronic pain of both knees 11/18/2020 ??? Osteoarthritis of both knees 11/18/2020 There are no medical history contraindications to this procedure. PAST SURGICAL HISTORY: Past Surgical History: Procedure Laterality Date ??? OVARY REMOVAL Right There are no past surgical contraindications to this procedure ALLERGIES: Patient has no known allergies. There are no allergic contraindications to this procedure. MEDICATIONS: No current facility-administered medications for this encounter. There are no medication contraindications to this procedure. FAMILY HISTORY: Family History Problem Relation Age of Onset ??? Breast Cancer Neg Hx SOCIAL HISTORY: Social History Socioeconomic History ??? Marital status: Spouse name: Not on file ??? Number of children: Not on file ??? Years of education: Not on file ??? Highest education level: Not on file Occupational History ??? Not on file Tobacco Use ??? Smoking status: Never Smoker ??? Smokeless tobacco: Never Used Vaping Use ??? Vaping Use: Never used Substance and Sexual Activity ??? Alcohol use: Not on file ??? Drug use: Not on file ??? Sexual activity: Not on file Other Topics Concern ??? Not on file Social History Narrative ??? Not on file Social Determinants of Health Financial Resource Strain: ??? Difficulty of Paying Living Expenses: Not on file Food Insecurity: ??? Worried About Running Out of Food in the Last Year: Not on file ??? Ran Out of Food in the Last Year: Not on file Transportation Needs: ??? Lack of Transportation (Medical): Not on file ??? Lack of Transportation (Non-Medical): Not on file Physical Activity: ??? Days of Exercise per Week: Not on file ??? Minutes of Exercise per Session: Not on file There are no social history contraindications to this procedure. ROS: Review of Systems Constitutional: Negative for fever, chills, or recent infection. Respiratory: Negative for shortness of breath. Cardiovascular: Negative for chest pain. Musculoskeletal: Positive for B/L knee pain. Psychiatric/Behavioral: Negative for agitation and behavioral problems. PHYSICAL EXAM: BP 140/86 Resp 21 Wt 68 kg (150 lb) SpO2 99% Physical Exam Constitutional: She appears well-developed and well-nourished. No distress. Cardiovascular: Normal heart rate. Pulmonary/Chest: Effort normal and breath sounds normal. Skin: She is not diaphoretic. This is no rash, apparent infection, or other abnormality to the areaof the proposed injection. There are no physical examination findings which would preclude this procedure. LABS: No results for input(s): WBC, RBC, HGB, HCT, MCV, MCH, MCHC, PLATELET, RDWCV in the last 168 hours. No results for input(s): PT, PTT, INR in the last 168 hours. ASSESSMENT: 1. Primary osteoarthritis of both knees 2. Chronic pain of both knees 3. Bilateral chronic knee pain PLAN: Proceed with procedure as planned. Thank you for the opportunity to participate in Ángela Haines's care. Please feel free to contact me with any questions. Sincerely, Balaji Desouza MD Pain Medicine Fellow [address] [address] / [facility] CC: Alisha Walker MD [address] [place] [id number] documented in this encounter Miscellaneous Notes * Op Note - Noemi Recio MD - 12/13/2020 1:15 PM EDT Pain Management Operative Note Patient Name: Ángela Haines : [id number] MR#: [id number] Case Date: 12/13/2020 Surgeon: Surgeon(s) and Role: * Noemi Recio MD - Primary * Balaji Desouza MD - Fellow Present on Admission: ??? Osteoarthritis of both knees ??? Chronic pain of both knees Postoperative diagnosis: Osteoarthritis of both knees ??? Chronic pain of both knees Procedure(s) (LRB): INJECTION,ANESTHETIC AGENT(S) AND/OR STEROID,GENICULAR NERVE BRANCHES,INCLUDING IMAGING (Bilateral) Patient was interviewed and the medical record reviewed. There were no medical, pharmacologic, radiographic or other structural contraindications to attempting ultrasonic guided B/L genicular nerve block. nerve blocks injection. Risks and expected side effects as well as potential benefit of the procedure were reviewed with the patient, and any voiced concerns addressed. The printed consent form was signed and witnessed. Standard time-out procedure was performed. The patient was placed in the supine position on the stretcher and automatic blood pressure cuff and pulse oximeter were applied. The skin entry points approaching the B/L superolateral genicular nerve, supramedial, medial retincular and inframedial genicular nerves were identified with the most adv antageous ultrasound view. Following Chlorhexidine preparation and drying a 3.5 inch 25 gauge needle was advanced to os at the location of the speciifc nerve root using ultrasound guidance. Next 0.5 ml of 0.5% Bupivicaine was injected at each site. The needles were then removed without difficulty. The patient's vital signs were stable throughout the procedure and were as recorded in the flowsheet by the nursing staff. If given, dosages of intravenous drugs for anxiolysis and analgesia were documented in MAR. Follow up plans and appointments were discussed with the patient. Post procedure instruction was given as documented in nursing documentation and having met discharge criteria, the patient was discharged from the Pain Management Center. Comments: No complications. Pre procedure pain score 10/10. Post procedure pain VAS to the knee was0/10. The patient will keep track of his knee pain over the next four hours. If he has sufficient relief he will be a candidate for radiofrequency of the same nerves. I have seen and examined the patient and reviewed the fellow's above history and I agree with the details as written. I was the attending physician supervising the fellow in the above care and I was present with the fellow for the entire procedure. Noemi Recio MD [facility] Center Assisant Professor of Anesthesiology [facility] [employer] [address] [address] / [facility] documented in this encounter Plan of Treatment Scheduled Orders Name Type Priority Associated Diagnoses Orde r Schedule INJECTION, ANESTHETIC AGENT(S) AND/OR STEROID, GENICULAR NERVE BRANCHES, INCLUDING IMAGING Procedures Routine Bilateral chronic knee pain One Time for 1 Occurrences starting 12/13/2020 until 12/13/2020 documented as of this encounter Visit Diagnoses Diagnosis Chronic pain of both knees- Primary Primary osteoarthritis of both knees Primary localized osteoarthrosis, lower leg Chronic pain of both knees Bilateral chronic knee pain Pain in joint, lower leg Osteoarthritis of both knees Osteoarthrosis, unspecified whether generalized or localized, lower leg documented in this encounter Active and Recently Administered Medications Times are shown in EDT. PRN Medication Order 12/11/2020 12/12/2020 12/13/2020 BUpivacaine (pf) (Marcaine) (5 mg/mL) 0.5% injection (CANCELED) ONCE PRN, Starting on Wed12/13/20 at 1314, Until Wed12/13/20 at 1535, Intra-Operative (Intra-Procedure), Routine 1323 (Given - Provid er: Balaji Desouza MD - Comment: genicular nerve) documented in this encounter Care Teams Maintenance Mechanic Telephone Relationship Specialty Start Date End Date Alisha Walker MD [address] [place] [address] PCP - General Family Medicine 01/28/17 08/12/21 documented as of this encounter
--- OUTSIDE RECORDS SUMMARY | 2024-04-29 13:35 | XMS_ITS | Encounter Summary ---
Author Organization [facility] [place] [address] Care Team Providers Care Evaluation Engineer Name Role Phone Alisha Walker MD Primary Care Provider [phone] Encounter Details Date Type Department Care Team (Late st Contact Info) Description 03/20/2021 Ancillary Procedure Radiology Library at [facility] [place] [id number] Ann Leach APRN [address] [place] [address] Social History Tobacco Use Types Packs/Day Years Used Date Smoking Tobacco: Never Smokeless Tobacco: Never Sex and Gender Information Value Date Recorded Sex Assigned at Not on file Gender Identity Not on file Sexual Orientation Not on file documented as of this encounter Plan of Treatment Not on file documented as of this encounter Procedures Procedure Name Priority Date/Time Associated Diagnosis Comments FILM LIBRARY STORAGE ONLY DX KNEE Routine 03/20/2021 12:00 AM EST documented in this encounter Results * Film Library- Storage Only DX Knee (03/20/2021 12:00 AM EST) Narrative [facility] - 08/22/2021 2:20 PM EDT This exam is auto-finalizing. It's purpose is for storage only. Ann Leach APRN IMG FILM LIBRARY ORDERABLES [facility] [place], [place] documented in this encounter Visit Diagnoses Not on filedocumented in this encounter Care Teams Evaluation Engineer Relationship Specialty Start Date End Date Alisha Walker MD [address] [place] [address] PCP - General Family Medicine 01/28/17 08/12/21 documented as of this encounter
--- OUTSIDE RECORDS SUMMARY | 2024-04-29 13:35 | XMS_ITS | Encounter Summary ---
[place] [address] Care Team Providers Care Forest Fire Management Officer Name Role Phone Ann Leach ANTONIO Primary Care Provider [phone] Reason for Visit * Reason Comments Follow-up S/P Closed compressi on fracture of L2 Lumbar vertebra Encounter Details Date Type Department Care Team (Late st Contact Info) Description 10/21/2022 1:30 PM EDT Office Visit [facility] [place] [address] Sydni Silva APRN [facility] [place] [address] Closed compression fracture of L2 lumbar vertebra with routine healing, subsequent encounter Social History Tobacco Use Types Packs/Day Years Used Date Smoking Tobacco: Never Smokeless Tobacco: Never Sex and Gender Information Value Date Recorded Sex Assigned at Not on file Gender Identity Not on file Sexual Orientation Not on file documented as of this encounter Last Filed Vital Signs Vital Sign Reading Time Taken Comments Blood Pressure - - Pulse - - Temperature - - Respiratory Rate - - Oxygen Saturation - - Inhaled Oxygen Concentration - - Weight 88.5 kg (195 lb) 10/21/2022 1:19 PM EDT Height 166.9 cm (5' 5.7) 10/21/2022 1:19 PM EDT Body Mass Index 31.76 10/21/2022 1:19 PM EDT documented in this encounter Progress Notes * Sydni Silva APRN - 10/21/2022 1:30 PM EDT [facility] Medical Decision Making: Ángela Haines is a pleasant 72 y.o. female seen today for a chief complaint of 100% lower back pain likely associated with advanced degenerative disc changes and associated facet arthropathy at L5-S1. Today, I discussed with the patient that I did not feel as though the compression deformity at L2 was a significant pain generator at this point. We discussed that it would not be unreasonable toconsider medial branch blocks with progression to radiofrequency ablation of the lower lumbar facets. At this point, the patient would like to hold on further treatment. She is struggling with her partial bilateral knee replacement and is soon to start physical therapy. I think this is quite reasona ble and at this point, she will follow-up with me as needed. Diagnosis: ICD-10-CM 1. Closed compression fracture of L2 lumbar vertebra with routine healing, subsequent encounter S32.020D Plan Follow-up as needed HPI: Ángela Haines is a 72 y.o. female seen last seen by me on 08/17/2022 for evaluation of a chief complaint of lower back pain that was thought to be most likely associated with advanced degenerative disc changes at L5-S1 and associated facet arthropathy. We also discussed at L2 compression deformity and I did not feel this was a significant component of her pain as this is not in the region whereshe indicated. Subsequently, we discussed watchful monitoring and she is here for a routine follow-up. Currently, she continues to endorse pain in the lower lumbar region across the lumbosacral junction. She denies any radiating pain to her lower extremities. She does find Aleve to be quite helpful inmitigating some of the pain. Employment: Retired ROS A five point review of systems was completed today and, of note, pertinent positive and negatives are indicated in the HPI. reports that she has never smoked. She has never used smokeless tobacco. Conservative Treatment: Physical Therapy: She has been actively engaged with physical therapy Home Exercise Program: She performs a home exercise program as tolerated Medications: NSAIDS: Naproxen Helpful? Yes Muscle Relaxants: Diazepam Helpful? Yes Injections: None recently Physical Examination: Wt Readings from Last 1 Encounters: 10/21/22 88.5 kg (195 lb) BMI Readings from Last 1 Encounters: 10/21/22 31.76 kg/m?? Pain: 0 - No pain (past 7 days pain lvl at lowest 0, highest 8) General: Pleasant, cooperative, Mood and affect are appropriate Posture: Upright Gait: Nonantalgic Palpation: There is no tenderness with palpation of the midline lumbar spine or bilateral paraspinals across the lumbosacral junction. There are no masses, lesions, or deformities. Skin: Intact with no stigmata of underlying disease. ROM: Deferred Imaging and Test Review: On the day of this encounter, I independently reviewed the CT scan of the abdomen completed on 07/12/2022 demonstrating mild L2 compression fracture without any significant retropulsion. There is alsoincidentally, advanced degenerative disc changes at L5-S1. CC: Ann Leach APRN Referring Provider: Ann Silva APRN 10/21/2022 [facility] documented in this encounter Plan of Treatment Not on file documented as of this encounter Visit Diagnoses Diagnosis Closed compression fracture of L2 lumbar vertebra with routine healing, subsequent encounter documented in this encounter Care Teams Forest Fire Management Officer Relationship Specialty Start Date End Date Ann Leach APRN [address] [place] [address] PCP - General Family Medicine 08/13/21 documented as of this encounter
--- OUTSIDE RECORDS SUMMARY | 2024-04-29 13:35 | XMS_ITS | Encounter Summary ---
[place] [address] Care Team Providers Care Program Strategist Name Role Phone Alisha Walker MD Primary Care Provider [phone] Encounter Details Date Type Department Care Team (Late st Contact Info) Description 04/22/2021 Telephone [facility] [place] [phone] Carlota Blair RN Social History Tobacco Use Types Packs/Day [...] on filedocumented in this encounter Care Teams Program Strategist Relationship Specialty Start Date End Date Alisha Walker MD [address] [place] [address] PCP - General Family Medicine 01/28/17 08/12/21 documented as of this encounter
--- OUTSIDE RECORDS SUMMARY | 2024-04-29 13:35 | XMS_ITS | Encounter Summary ---
Author Organization [facility] [place] [address] Care Team Providers Care Auto Design Detailer Name Role Phone Alisha Walker MD Primary Care Provider [phone] Encounter Details Date Type Department Care Team (Late st Contact Info) Description 12/13/2020 1:15 PM EDT - 12/13/2020 1:45 PM [place] [address] Noemi Recio MD [facility] [place] [address] INJECTION,ANESTHETIC AGENT(S) AND/OR STEROID,GENICULAR NERVE BRANCHES,INCLUDING IMAGING (WRVU 1.52) Social History Tobacco Use Types Packs/Day Years [...] Discharge Instructions * Discharge Instructions* Arden James - 12/13/2020 1:31 PM EDT Pain Management Center Discharge Instructions: You were seen today by Surgeon(s): Noemi Recio MD Krause, Jeffrey A, MD The following was performed: Procedure(s) (LRB): [...] Do not apply heat today. {CHECK BOX SELECTION:14559} You received medication through an intravenous line to lessen the anxiety/pain of your procedure. DO NOT operate heavy or dangerous equipment/tools, or sign important papers today. Attempt to empty your bladder 4-6 hours after your procedure. {CHECK BOX SELECTION:75108} If you have diabetes, monitor your blood [...] Sincerely, Balaji Desouza MD Pain Medicine Fellow [address] [address] / [facility] CC: Alisha Walker MD [address] [place] [address] documented in this encounter Miscellaneous Notes * Op Note - Noemi Recio MD - 12/13/2020 1:15 PM EDT Pain Management Operative Note Patient Name: Ángela Haines : [id number] MR#: [id number] Case Date: 12/13/2020 Surgeon: Surgeon(s) and Role: [...] Pain Management Center Assisant Professor of Anesthesiology Formerly [facility] [employer] [facility] [address] [address] / [facility] documented in this encounter Plan of Treatment [...] unspecified whether generalized or localized, lower leg Bilateral chronic knee pain Pain in joint, lower leg documented in this encounter Administered Medications Inactive Administered Medications - up to 3 most recent administrations Medication Order MAR Action Action Date Dose Rate Site BUpivacaine (pf) (Marcaine) (5 mg/mL) 0.5% injection ONCE PRN, Starting on Wed12/13/20 at 1314, Until Wed12/13/20 at 1535, Intra-Operative (Intra-Procedure), Routine Given 12/13/2020 1:23 PM EDT 4 mLs documented in this encounter Active and Recently Administered Medications Times are shown in EDT. PRN Medication Order 12/11/2020 12/12/2020 12/13/2020 BUpivacaine (pf) (Marcaine) (5 mg/mL) 0.5% injection (CANCELED) ONCE PRN, Starting on Wed12/13/20 at 1314, Until Wed12/13/20 at 1535, Intra-Operative (Intra-Procedure), Routine 1323 (Given - Provid er: Balaji Desouza MD - Comment: genicular nerve) documented in this encounter Care Teams Auto Design Detailer Relationship Specialty Start Date End Date Alisha Walker MD [address] [place] [address] PCP - General Family Medicine 01/28/17 08/12/21 documented as of this encounter
--- OUTSIDE RECORDS SUMMARY | 2024-04-29 13:35 | XMS_ITS | Clinical Summary ---
Author Organization [facility] Address [facility] [place] [address] Care Team Providers Care Health Systems Analyst Name Role Phone Joann Leachhryn Sal ALVAREZ Primary Care Provider [phone] Allergies Active Allergy Reactions Criticality Noted Date Comments Acetaminophen Other (See Comments) 08/17/2022 Caused lethargy and tiredness Medications Medication Sig Dispensed Refills Start Date End Date Status cannabidioL (Epidiolex) 100 mg/mL Solution Take by mouth 2 times daily. *Liquid Drops* 06/17/2018 Active cholecalciferol, Vitamin D3, 25 mcg (1,000 unit) Capsule Take 1,000 Units by mouth daily. 10/16/2015 Active estradioL (ESTRACE) 0.01 % (0.1 mg/gram) Cream Place vaginally. 10/07/2020 Active metFORMIN XR (Glucophage XR) 500 mg ER 24 hr tablet TAKE 1 TABLET DAILY FOR 1 WEEK, 2 TABLET DAILY X 1 WEEK, THEN 3 TABLET DAILY FOR 1 WEEK THEN 4 TABLET DAILY 07/15/2022 Active UNABLE TO FIND daily. NAC Active Active Problems Problem Noted Date Diagnosed Date Osteoarthritis of both knees 11/18/2020 Chronic pain of both knees 11/18/2020 Family History Medical History Relation Comments Breast Cancer Neg Hx Social History Tobacco Use Types Packs/Day Years Used Date Smoking Tobacco: Never Smokeless Tobacco: Never Sex and Gender Information Value Date Recorded Sex Assigned at Not on file Gender Identity Not on file Sexual Orientation Not on file Last Filed Vital Signs Vital Sign Reading Time Taken Comments Blood Pressure 134/66 08/27/2021 8:06 AM EDT Pulse 87 08/27/2021 8:06 AM EDT Temperature - - Respiratory Rate 21 12/13/2020 12:53 PM EDT Oxygen Saturation 100% 12/13/2020 1:25 PM EDT Inhaled Oxygen Concentration - - Weight 88.5 kg (195 lb) 10/21/2022 1:19 PM EDT Height 166.9 cm (5' 5.7) 10/21/2022 1:19 PM EDT Body Mass Index 31.76 10/21/2022 1:19 PM EDT Plan of Treatment Health Maintenance Due Date Last Done Comments CT Colonography 1950 Colonoscopy 1950 Colorectal Cancer Screening 1950 FIT DNA 1950 FIT 1950 Sigmoidoscopy (10 year) with FIT yearly 1950 Sigmoidoscopy 1950 Hepatitis C Screening 09/16/1969 Lipid Screening 09/16/1969 Tetanus/Diphtheria/Pertussis Vaccines (1 - Tdap) 09/16/1970 Breast Cancer Share Decision Needed 1991 Pneumoccocal Vaccine: 50+ (1 of 1 - PCV) 09/16/2001 Zoster vaccine (1 of 2) 09/16/2001 Advance Directive 09/16/2006 Bone Density Scan 09/16/2016 Breast Cancer screening 04/16/2019 04/16/19 18, 04/24/2016, 03/28/2015, Additional history exists Covid-19 Vaccine (2023-2 5 season) 2023 Influenza (Flu) vaccine (1 o f 1 - Influenza standard series) 11/28/2023 Procedures Procedure Name Priority Date/Time Associated Diagnosis Comments MAMMO SCREENING CAD AND HUMBERTO BILATERAL Routine 04/16/2017 8:48 AM EST Encounter for screening mammogram for breast cancer from Last 3 Months or Most Recently Relevant to Health Maintenance Results * Mammo Screen CAD and Humberto Bilat (Generic) (04/16/2017 8:48 AM EST) Anatomical Region Laterality Modality Breast Bilateral Mammography Narrative 04/16/2017 8:53 AM EST BILATERAL MAMMOGRAPHY REASON FOR EXAM: Screening TECHNIQUE: CC and MLO views were obtained of each breast using standard 2-D mammography as well as 3-D tomosynthesis. Computer aided detection was used. This is compared with prior images. FINDINGS: ??The breasts are heterogeneously dense, which may obscure small masses. There are no suspicious microcalcifications, masses, or areas of distortion. The pattern is stable. CONCLUSION: No mammographic evidence of malignancy. RECOMMENDATION: The [place] [employer] and The Society of Breast Imaging recommend annual screening beginning at age 40 for the general female population. Screening should continue as long as a woman is in good health and is expected to live 10 more years or longer. All women should be familiar with the known benefits, limitations, and potential harms linked to breast cancer screening. They should also know how their breasts normally look and feel and report any breast changes to a health care provider right away. Some women - because of their family history, a genetic tendency, or certain other factors - should be screened with MRIs along with mammograms. (The number of women who fall into this category is very small.) The patient and health care provider should discuss the patient history and decide if earlier screening and breast MRI are appropriate. A result letter has been sent to this patient by the [facility]. BIRADS CATEGORY 1: NEGATIVE Evy Maged [place] IMG MAMMO ORDERABLE S from Last 3 Months or Most Recently Relevant to Health Maintenance Care Teams Health Systems Analyst Relationship Specialty Start Date End Date Ann Leach APRN [address] [place] [address] PCP - General Family Medicine 08/13/21
--- OUTSIDE RECORDS SUMMARY | 2024-04-29 13:35 | XMS_ITS | Encounter Summary ---
Author Organization [facility] [place] [address] Care Team Providers Care Food Operations Manager Name Role Phone Alisha Walker MD Primary Care Provider [phone] Encounter Details Date Type Department Care Team (Late st Contact Info) Description 12/13/2020 1:15 PM EDT Ancillary [place] [address] Noemi Recio MD [facility] [place] [address] Pain Social History Tobacco Use Types Packs/Day [...] Associated Diagnosis Comments FILM LIBRARY STORAGE ONLY PAIN CLINIC ULTRASOUND Routine 12/13/2020 1:43 PM EDT Pain documented in this encounter Results * Film Library- Storage Only Pain Clinic Ultrasound (12/13/2020 1:43 PM EDT) Narrative [facility] - 12/13/2020 1:43 PM EDT See PACS for result report. Noemi Recio MD IMG FILM LIBRARY ORDERABLES [place], [place] documented in this encounter Visit Diagnoses Diagnosis Pain Generalized pain documented in this encounter Care Teams Food Operations Manager Relationship Specialty Start Date End Date Alisha Walker MD [address] [place] [address] PCP - General Family Medicine 01/28/17 08/12/21 documented as of this encounter
--- OUTSIDE RECORDS SUMMARY | 2024-04-29 13:35 | XMS_ITS | Encounter Summary ---
Author Organization [facility] [place] [address] Care Team Providers Care Immigration Services Officer Name Role Phone Ann Leach APRN Primary Care Provider [phone] Encounter Details Date Type Department Care Team (Late st Contact Info) Description 08/14/2021 Orders [place] [address] Leslie Paz PA [facility] [place] [address] History of total bilateral knee replacement Social History Tobacco Use Types Packs/Day Years Used Date Smoking Tobacco: Never Smokeless Tobacco: Never Sex and Gender Information Value Date Recorded Sex Assigned at Not on file Gender Identity Not on file Sexual Orientation Not on file documented as of this encounter Progress Notes * Leslie Paz PA - 08/14/2021 2:26 PM EDT I have reviewed Ángela Haines chart and it is my medical opinion that XR images will need to be obtained to properly evaluate the patient's concerns. Leslie Paz PA-C documented in this encounter Plan of Treatment Not on file documented as of this encounter Visit Diagnoses Diagnosis History of total bilateral knee replacement documented in this encounter Care Teams Immigration Services Officer Relationship Specialty Start Date End Date Ann Leach APRN [address] [place] [address] PCP - General Family Medicine 08/13/21 documented as of this encounter
--- OUTSIDE RECORDS SUMMARY | 2024-04-29 13:35 | XMS_ITS | Encounter Summary ---
[place] [address] Care Team Providers Care Shearing Machine Feeder Name Role Phone Alisha Walker MD Primary Care Provider Encounter Details Date Type Department Care Team (Late st Contact Info) Description 12/25/2020 Telephone [facility] [place] [id number] Carlota Blair RN Social History Tobacco Use Types Packs/Day Years Used Date Smoking Tobacco: Never Smokeless Tobacco: Never Sex and Gender Information Value Date Recorded Sex Assigned at Not on file Gender Identity Not on file Sexual Orientation Not on file documented as of this encounter Miscellaneous Notes * Telephone Encounter - Carlota Blair RN - 12/25/2020 5:15 PM EDT Post-procedure phone call from patient to report their response to the Genicular Nerve Block procedure performed on 12/13/20 in the Pain Management Center by Noemi Recio MD. This is patient's: first medial branch block Patient reports that after the procedure they experienced: _x_ Patient reported post-block numeric pain scale: 0 /10 (average pain since procedure) _x_ Post-procedure pain has been reduced by 90%. (> 80% Medicare/MVP/Medicaid) _x_ If relief > 80% with ability to perform painful maneuvers; schedule 2nd MBB: yes _x_ Post-procedure pain has been reduced by 90%. (> 50% all other insurers) _x_ Pain relief: moderate If pain is reduced, it lasted: Yes 4 hours or greater Changes in functional status post procedure: walking around without pain Pertinent recent trauma or surgery? no No, proceed Review of Pertinent Medical History for changes since last MBB: - h/o Thrombocytopenia/bleeding tendency/platelet dysfunction: no - h/o Liver disease; abnormal liver function: no - h/o Chronic kidney disease (CKD); abnormal kidney function: no - Patient on dialysis? no -Patient has pacemaker/defibrillator: no Is patient taking an anticoagulant? None Is patient taking any NSAIDS/supplements? None Is patient taking aspirin? yes If yes, is it prescribed? yes If yes, what reason is it prescribed? Is patient taking Antibiotics? No Has patient been on greater than 40mg of steroid 14 days or longer? No Has patient had any steroid injections anywhere in his/her body within the last two weeks? No Does patient request sedation? no Does patient need NPO guidelines? no Does patient have allergies to contrast/local anesthetic/steroid? No Any changes? no Based on the information provided above and after discussion with the patient, the following actions will be taken: _x_ Patient meets criteria to proceed to second Bilateral at Genicular Nerve Block, order will be pended to Dr. Recio Patient denies further questions at this time and expressed understanding of plan. Encouraged patient to call pain clinic RN for future questions or concerns. documented in this encounter Plan of Treatment Not on file documented as of this encounter Visit Diagnoses Not on filedocumented in this encounter Care Teams Shearing Machine Feeder Relationship Specialty Start Date End Date Alisha Walker MD [address] [place] [address] PCP - General Family Medicine 01/28/17 08/12/21 documented as of this encounter
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
--- OUTSIDE RECORDS SUMMARY | 2024-04-29 13:35 | XMS_ITS | Encounter Summary ---
[place] [address] Care Team Providers Care Agricultural Production Engineer Name Role Phone Alisha Walker MD Primary Care Provider [phone] Encounter Details Date Type Department Care Team (Late st Contact Info) Description 11/18/2020 Telephone [facility] [place] [phone] Carlota Blair RN Social History Tobacco Use Types Packs/Day Years Used Date Smoking Tobacco: Never Smokeless Tobacco: Never Sex and Gender Information Value Date Recorded Sex Assigned at Not on file Gender Identity Not on file Sexual Orientation Not on file documented as of this encounter Miscellaneous Notes * Telephone Encounter - Carlota Blair RN - 11/18/2020 1:46 PM EDT Reached voicemail and left message as identified in contacts Identified myself and provided callback number: [phone]. 1. Patient instructed to arrive at 1130 on 11/20/20 with their electric mule driver for their GNB procedure. 2. Bring Updated list of medications including dosage and reason for taking. 3. Call the Pain Clinic Nurse at for any of the following situations that occur within 2 weeks of your procedure date: a. Any questions about your procedure b. You are having a Covid vaccine or other vaccine c. You have been exposed to anybody with a contagious illness such as Covid, flu, chicken pox d. You have any symptoms of illness such as: cough, sore throat, fever, N/V/D e. You are taking antibiotics to treat an infection f. You have any skin rashes, breakdown, blisters or open wounds g. You have had any hospitalizations, ED visit, surgery, other procedure, dental procedure h. You have taken oral steroids, or had a steroid injection. 4. If your pain has resolved or significantly improved such as a rating of 3 out of 10 or less, youmay need to cancel your procedure because it will likely be of little benefit to you and it is likely that your insurance will not cover it. Please call the Pain clinic nurse to discuss. 5. Was patient instructed to stop any medications? No a. If yes, instructions reviewed as follows: b. Name, date of last dose. c. Please call to reschedule your procedure if you did not stop this medication as directed. 6. Is patient having a nerve block: Yes a. If yes, instructed to not take any pain medication for 12 hours before the procedure time. 7. Please continue to take any prescribed medications that you were not told to stop, especially blood pressure medication because your procedure may be cancelled if your blood pressure is too high. 8. You were instructed to follow NPO guidelines: No if yes the following instructions were reviewed: a. You may eat up to 6 hours before your procedure b. You may have clear liquids only up to 2 hours before your procedure: water, apple juice, lu toby, sprite, popsicles, broth, tea or coffee plain or with sweetener, absolutely no dairy products, no milk including soy, oat, almond. 9. Does patient have a pacemaker? No If yes, document that cardiology was called and notified. documented in this encounter Plan of Treatment Not on file documented as of this encounter Visit Diagnoses Not on filedocumented in this encounter Care Teams Agricultural Production Engineer Relationship Specialty Start Date End Date Alisha Walker MD [address] [place] [address] PCP - General Family Medicine 01/28/17 08/12/21 documented as of this encounter
--- OUTSIDE RECORDS SUMMARY | 2024-04-29 13:35 | XMS_ITS | Encounter Summary ---
Author Organization [facility] [place] [address] Care Team Providers Care Wooling Machine Operator Name Role Phone Ann Leach APRN Primary Care Provider [phone] Encounter Details Date Type Department Care Team (Late st Contact Info) Description 07/12/2022 Ancillary Procedure Radiology Library at [facility] [place] [address] Ann Leach APRN [address] [place], [place] [id number] Social History Tobacco Use Types Packs/Day Years [...] Associated Diagnosis Comments FILM LIBRARY STORAGE ONLY CT ABDOMEN AND PELVIS Routine 07/12/2022 12:00 AM EDT documented in this encounter Results * Film Library- Storage Only CT Abdomen & Pelvis (07/12/2022 12:00 AM EDT) Narrative FADUMO - 07/17/2022 12:39 PM EDT This exam is auto-finalizing. It's purpose is for storage only. Ann Leach APRN IMG FILM LIBRARY ORDERABLES [facility] [place], [place] documented in this encounter Visit Diagnoses Not on filedocumented in this encounter Care Teams Wooling Machine Operator Relationship Specialty Start Date End Date Ann Leach APRN [address] [place] [address] PCP - General Family Medicine 08/13/21 documented as of this encounter
--- OUTSIDE RECORDS SUMMARY | 2024-04-29 13:36 | XMS_ITS | Encounter Summary ---
[place] [address] Care Team Providers Care Assistant Superintendent For Curriculum Name Role Phone Og Allen MD Primary Care Provider Encounter Details Date Type Department Care Team (Late st Contact Info) Description 10/27/2007 [place] [id number] Alexandr Baker MD Social History Tobacco Use Types Packs/Day Years Used Date Smoking Tobacco: Never Assessed Sex and Gender Information Value Date Recorded Sex Assigned at Not on file Gender Identity Not on file Sexual Orientation Not on file documented as of this encounter Plan of Treatment Not on file documented as of this encounter Procedures Procedure Name Priority Date/Time Associated Diagnosis Comments FILM LIBRARY STORAGE ONLY MAMMO Routine 10/27/2007 2:30 PM EDT documented in this encounter Results * Film Library- Storage only Mammo (10/27/2007 2:30 PM EDT) Anatomical Region Laterality Modality Other 10/27/2007 2:30 PM EDT Narrative 01/26/2014 2:42 PM EDT This is a Non-reportable exam Procedure Note KATH, UNSIGNED REPORT - 01/26/2014 This is a Non-reportable exam Alexandr Baker MD IMG FILM LIBRARY ORD ERABLES documented in this encounter Visit Diagnoses Not on filedocumented in this encounter Care Teams Assistant Superintendent For Curriculum Relationship Specialty Start Date End Date Og Allen MD [address] [place] [address] PCP - General 01/24/14 04/23/16 documented as of this encounter
--- OUTSIDE RECORDS SUMMARY | 2024-04-29 13:36 | XMS_ITS | Encounter Summary ---
Author Organization [facility] [place] [address] Care Team Providers Care Suppression Crew Leader Name Role Phone Alisha Walker MD Primary Care Provider Encounter Details Date Type Department Care Team (Late st Contact Info) Description 07/08/2020 Ancillary Procedure Radiology Library at [facility] [place] [id number] Alisha Walker MD [address] [place], [place] [address] Social History Tobacco Use Types Packs/Day Years [...] FILM LIBRARY STORAGE ONLY DX KNEE Routine 07/08/2020 12:00 AM EDT documented in this encounter Results * Film Library- Storage Only DX Knee (07/08/2020 12:00 AM EDT) Narrative FADUMO - 10/15/2020 3:25 PM EDT This exam is auto-finalizing. It's purpose is for storage only. Alisha Walker MD IMG FILM LIBRARY ORD ERABLES [facility] [place] documented in this encounter Visit Diagnoses Not on filedocumented in this encounter Care Teams Suppression Crew Leader Relationship Specialty Start Date End Date Alisha Walker MD [address] [place] [address] PCP - General Family Medicine 01/28/17 08/12/21 documented as of this encounter
--- OUTSIDE RECORDS SUMMARY | 2024-04-29 13:36 | XMS_ITS | Encounter Summary ---
Author Organization [facility] [place] [address] Care Team Providers Care Mixing Supervisor Name Role Phone Og Allen MD Primary Care Provider Encounter Details Date Type Department Care Team (Latest Contact Info) Description 04/05/2015 9:52 AM EST - 04/05/2015 11:59 PM EST Hospital En[place] [address] Leslie Iyer MD [facility] [place] [address] Abnormal mammogram Discharge Disposition: Home Social History Tobacco Use Types Packs/Day Years Used Date Smoking Tobacco: Never Assessed Sex and Gender Information Value Date Recorded Sex Assigned at Not on file Gender Identity Not on file Sexual Orientation Not on file documented as of this encounter Medications at Time of Discharge Medication Sig Dispensed Refills Start Date End Date raloxifene (Evista) 60 mg Tablet Take 60 mg by mouth daily. 03/05/2011 10/28/2020 documented as of this encounter Plan of Treatment Not on file documented as of this encounter Procedures Procedure Name Priority Date/Time Associated Diagnosis Comments MAMMO CALL BACK DIAGNOSTIC RIGHT Routine 04/05/2015 10:13 AM EST Abnormal mammogram documented in this encounter Results * Mammo Call Back Diagnostic Extra View Right (04/05/2015 10:13 AM EST) Anatomical Region Laterality Modality Breast Right Mammography Impressions 04/05/2015 11:46 AM EST IMPRESSION: No mammographic or ultrasound evidence of malignancy with additional imaging of the right and left breast. Resume routine screening. BI-RADS Category 2: Benign Findings * ??The [employer] and The Society of Breast Imaging recommend annual screening beginning at age 40 for the general female population. * ??Screening should continue as long as a woman is in good health and is expected to live 10 more years or longer. * ??All women should be familiar with the known benefits, limitations, and potential harms linked to breast cancer screening. They also should know how their breasts normally look and feel and report any breast changes to a health care provider right away. * ??Some women, because of their family history, a genetic tendency, or certain other factors, should be screened with MRIs along with mammograms. (The number of women who fall into this category is very small.) The patient and health care provider should discuss the patient history and decide if earlier screening and breast MRI are appropriate. Narrative 04/05/2015 11:46 AM EST EXAMINATION: MAMMO CALL BACK 2D DIGITAL DIAGNOSTIC EXTRA VIEW WITH CAD RIGHT, MAMMO BREAST US LIMITED LEFT CLINICAL HISTORY: Abnormal mammogram, Abnormal mammogram TECHNIQUE: Repeat imaging was performed of the right breast including a standard right CC, spot compression right CC and true lateral view. 2-D direct digital capture, 3-D tomosynthesis and computer aided detection (CAD) were used. COMPARISON: This study was compared with prior images. FINDINGS: The faint nodular asymmetry in the right retroglandular fat is unchanged when carefully reassessed on the repeat right craniocaudal view and spot compression imaging. Specifically, this nodular asymmetry is seen in the craniocaudal view to be unchanged in dimension, measuring 0.7 x 0.4 cm and well marginated consistent with a benign process. Left breast ultrasound: Directed ultrasound was performed of the left breast and confirms an anechoic well-circumscribed benign simple cyst at the left breast 2:00 radian 8 cm from the nipple corresponding in size and location to the mammographic nodule. Leslie Iyer MD IMG MAMMO ORDERABLES documented in this encounter Visit Diagnoses Diagnosis Abnormal mammogram Abnormal mammogram, unspecified documented in this encounter Care Teams Mixing Supervisor Relationship Specialty Start Date End Date Og Allen MD [address] [place] [address] PCP - General 01/24/14 04/23/16 documented as of this encounter
--- OUTSIDE RECORDS SUMMARY | 2024-04-29 13:36 | XMS_ITS | Encounter Summary ---
[place] [address] Care Team Providers Care Carbon Furnace Operator Helper Name Role Phone Jean Pierre Godfrey MD Primary Care Provider [phone] Encounter Details Date Type Department Care Team (Late st Contact Info) Description 04/24/2016 1:31 PM EST - 04/24/2016 11:59 PM EST Hospital [place] [address] Kristin Lynne APRN [facility] [address] [place] [address] Encounter for screening mammogram for malignant neoplasm of breast Discharge Disposition: Home Social History Tobacco Use Types Packs/Day Years Used Date Smoking Tobacco: Never Assessed Sex and Gender Information Value Date Recorded Sex Assigned at Not on file Gender Identity Not on file Sexual Orientation Not on file documented as of this encounter Medications at Time of Discharge Medication Sig Dispensed Refills Start Date End Date cholecalciferol, Vitamin D3, 25 mcg (1,000 unit) Capsule Take 1,000 Units by mouth daily. 10/16/2015 raloxifene (Evista) 60 mg Tablet Take 60 mg by mouth daily. 03/05/2011 10/28/2020 documented as of this encounter Plan of Treatment Not on file documented as of this encounter Procedures Procedure Name Priority Date/Time Associated Diagnosis Comments MAMMO SCREENING CAD AND HUMBERTO BILATERAL Routine 04/24/2016 1:50 PM EST Encounter for screening mammogram for malignant neoplasm of breast documented in this encounter Results * Mammo Screen CAD and Humberto Bilat (Generic) (04/24/2016 1:50 PM EST) Anatomical Region Laterality Modality Breast Bilateral Mammography Narrative 04/27/2016 9:46 AM EST BILATERAL MAMMOGRAPHY REASON FOR EXAM: [...] No mammographic evidence of malignancy. RECOMMENDATION: The [employer] and The Society of [...] Breast Imaging Center. BIRADS CATEGORY 1: NEGATIVE Kristin Lynne DENTAL BILLING SPECIALIST IMG MAMMO ORDERABLE S documented in this encounter Visit Diagnoses Diagnosis Encounter for screening mammogram for malignant neoplasm of breast Other screening mammogram documented in this encounter Care Teams Carbon Furnace Operator Helper Relationship Specialty Start Date End Date Jean Pierre Godfrey MD [address] [place] [address] PCP - General Internal Medicine 04/24/16 01/27/17 documented as of this encounter
--- OUTSIDE RECORDS SUMMARY | 2024-04-29 13:36 | XMS_ITS | Encounter Summary ---
[place] [address] Care Team Providers Care Content Writer Name Role Phone Alisha Walker MD Primary Care Provider [phone] Encounter Details Date Type Department Care Team (Late st Contact Info) Description 10/29/2020 Notes Only [facility] [place] [phone] Stephanie Rabago Social History Tobacco Use Types Packs/Day Years Used Date Smoking Tobacco: Never Smokeless Tobacco: Never Sex and Gender Information Value Date Recorded Sex Assigned at Not on file Gender Identity Not on file Sexual Orientation Not on file documented as of this encounter Progress Notes * Stephanie Rabago - 10/29/2020 2:15 PM EDT Have you had or are you scheduled to have a COVID vaccine? Yes Date of First Dose: June Date of Second Dose: June Is this a STEROID injection (anything other than RFA, MBB, Lumbar Puncture, or Blood Patch)? No If yes, schedule injection 2 weeks before or 2 weeks after vaccine. Is this being billed to workers comp or your regular insurance (verify insurance)? Worker's Comp no Insurance: Medicare and [employer] BCBS[place] The following items were reviewed verbally with the patient or their designee and a scheduling packet was Provided to the patient which included the following information:Appointment Details, Snap Attacher Requirement and Educational Booklet documented in this encounter Plan of Treatment Not on file documented as of this encounter Visit Diagnoses Not on filedocumented in this encounter Care Teams Content Writer Relationship Specialty Start Date End Date Alisha Walker MD [address] [place] [address] PCP - General Family Medicine 01/28/17 08/12/21 documented as of this encounter
--- OUTSIDE RECORDS SUMMARY | 2024-04-29 13:36 | XMS_ITS | Encounter Summary ---
[place] [address] Care Team Providers Care Capping Machine Operator Name Role Phone Og Allen MD Primary Care Provider Encounter Details Date Type Department Care Team (Late st Contact Info) Description 01/24/2014 2:00 PM EDT - 01/24/2014 11:59 PM EDT Hospital En[place] [address] [facility], [address] [address] Kristin Lynne APRN [facility] [address] [place] [address] Discharge Disposition: Home Social History Tobacco Use [...] Date/Time Associated Diagnosis Comments MAMMO SCREENING CAD BILATERAL Routine 01/24/2014 2:22 PM EDT documented in this encounter Results * Mammo digital bilateral Screening with CAD (01/24/2014 2:22 PM EDT) Anatomical Region Laterality Modality Breast Bilateral Mammography 01/24/2014 2:22 PM EDT Narrative 01/29/2014 9:18 AM EST Reason for Exam: Screening ?? Technique: Craniocaudal (CC) and Medio-lateral Oblique (MLO) views of both breasts obtained with direct digital capture. In addition to routine 2-D imaging, this exam was also performed with 3-D Tomographic Imaging (MLO and CC). ?? The exam was evaluated by CAD version 8.3.17. ?? Findings: ?? This is a negative mammogram (ACR Category 1). There is a stable fibroglandular pattern without significant change from prior studies. There is no mammographic evidence of cancer. The breasts are heterogeneously dense which limits mammographic sensitivity for the detection of malignancy. ?? CONCLUSION: This is a NEGATIVE mammogram (ACR Category 1). ?? Routine screening mammography is recommended with the frequency dependent upon the patients age and breast cancer risk factors. A letter has been sent to this patient by the breast imaging center. ?? Procedure Note Alexandr Baker MD - 01/29/2014 Reason for Exam: Screening Technique: Craniocaudal (CC) and Medio-lateral Oblique (MLO) views of both breasts obtained with direct digital capture. In addition to routine 2-D imaging, this exam was also performed with 3-D Tomographic Imaging (MLOand CC). The exam was evaluated by CAD version 8.3.17. Findings: This is a negative mammogram (ACR Category 1). There is a stablefibroglandular pattern without significant change from prior studies. There is no mammographic evidence of cancer. The breasts areheterogeneously dense which limits mammographic sensitivity for the detection ofmalignancy. CONCLUSION: This is a NEGATIVE mammogram (ACR Category 1). Routine screening mammography is recommended with the frequency dependentupon the patients age and breast cancer risk factors. A letter has been sent to this patient by the breast imaging center. Kristin Lynne APRN IMG MAMMO ORDERABLE S documented in this encounter Visit Diagnoses Not on filedocumented in this encounter Care Teams Capping Machine Operator Relationship Specialty Start Date End Date Og Allen MD [address] [place] [address] PCP - General 01/24/14 04/23/16 documented as of this encounter
--- OUTSIDE RECORDS SUMMARY | 2024-04-29 13:36 | XMS_ITS | Encounter Summary ---
Author Organization [facility] Address [facility] [address] Care Team Providers Care Apartment Leasing Consultant Name Role Phone Alisha Walker MD Primary Care Provider [phone] Reason for Visit * Reason Comments Skin Check * Consultation (Routine) - Closed Specialty Diagnoses / Procedures Referred By Annalee panchal Referred To Contact Dermatology Diagnoses Skin Survelliance Ann Leach APRN [address] [place] [address] [facility] Dermatology [address] [place] [address] Referral ID Status Reason Start Date Expiration Date V isits Requested Visits Authorized [id number] Closed Consult, Test & Treat Connection Center 01/28/2017 01/28/2018 1 1 Encounter Details Date Type Department Care Team (Late st Contact Info) Description 03/03/2017 1:30 PM EST Office Visit Dermatology at [facility] [address] [place] [address] Latha Chaparro MD [facility] [place] [address] Puja Bolden PA Seborrheic keratosis; Multiple benign nevi; Seborrheic keratosis, inflamed Social History Tobacco Use Types Packs/Day Years Used Date Smoking Tobacco: Never Smokeless Tobacco: Never Sex and Gender Information Value Date Recorded Sex Assigned at Not on file Gender Identity Not on file Sexual Orientation Not on file documented as of this encounter Patient Instructions * Patient Instructions* Alejandra Rivera - 03/03/2017 1:30 PM EST Inflamed Seborrheic Keratoses You have been diagnosed today with Inflamed Seborrheic Keratosis (ISK). These lesions are benign and have no risk of turning into a skin cancer. Due to their bothersome nature, ISK's are usually treated. You were treated today with Liquid Nitrogen. This is the most common treatment for ISK's. Liquid nitrogen is extremely cold, and freezes the surface of the skin, causing the lesion to flake off. Treatment with liquid nitrogen can be uncomfortable, but discomfort should subside after a couple of hours. The area treated will look red and irritated, and it may blister up or turn dark, then fall off.This is normal! You do not need any special treatment for the area, but you may find cold compresses and/or a lightapplication of Vaseline soothing. For best results, do not rub or pick at the healing lesion. Expected healing time is 3-4 weeks. Please contact the Dermatology clinic at [phone] if the lesion has not fully resolved after 6 weeks. documented in this encounter Progress Notes * Puja Bolden PA - 03/03/2017 1:30 PM EST Images from the original note were not included. DERMATOLOGY - NEW PATIENT NOTE Date of service: 03/03/2017 Ángela Haines : 1950, 66 y.o. CC: Chief Complaint Patient presents with ??? Skin Check HPI: Ángela Haines is a 66 y.o. female referred by Ann Leach for a full skin check with scattered lesions she would like examined. One lesion on the chest is a bit raised and irritating. She believes it is a bit darker. She has no personal or family history of skin cancer. Relevant Skin History: - Okay to leave detailed message with results? 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 No current facility-administered medications for this visit. Allergies: No Known Allergies Review of Systems: - General: Feels well. - Skin: No other skin concerns. Examination: - Constitutional: Patient was alert, well-appearing and in no noticeable distress. - Skin: Skin examination of the scalp, face, ears, neck, back, chest, abdomen, right and left upperextremities, right and left lower extremities, hands, feet, and buttocks was normal with the exception of the findings listed below. Genitalia not examined. Diagnosis/Skin findings/Assessment/Plan: 1. Seborrheic keratoses - Trunk and extremities: Multiple 0.4-0.6cm brown papules with waxy, stuck-on appearance. Milia-like cysts, comedone-like openings and/or fissuring on dermoscopy. - Patient reassured of benign nature. - Advised patient to call if areas become inflamed or irritated. 2. Inflamed seborrheic keratosis - Left central chest: 4 x 6mm irritated light brown thin plaque. TOTAL: 1 Procedure Note: Procedure: Destruction of lesion with cryotherapy. Number: 1 Location: as above Discussed procedure and expectations including risks (including risk of hypopigmentation) and benefits. Verbal consent obtained. Frozen with LN2, 15-30 second thaw time, TWICE. There were no complications; the patient tolerated the procedure well. Post-procedure expectations and wound care were reviewed. 3. Benign appearing nevi with even pigmentation and well defined margins are noted - Trunk and extremities: multiple, 0.3-0.5cm, medium-brown, evenly- pigmented macules and papules. All with regular pigment pattern on dermoscopy. No pigmented lesions suspicious for melanoma. - Patient reassured of benign nature. - No lesions suspicious for melanoma identified on exam today. Will continue to monitor. - Discussed importance of sun protection, sun avoidance strategies, protective clothing, and sunscreen. I discussed warning signs for skin cancer, including the ABCDEs of melanoma. ?? - Observe skin for change in color, size or character. Call if such occur. LOS: [id number] RTC in 1 year for a full skin exam, sooner if needed. Reminder placed in scheduling system. Instructed to call if problems arise. Photos taken and documented with patient consent. Note initiated by Gauri Malhotra CMA. Clinical scribe: Alejandra Rivera - I am documenting this encounter acting as the scribe for and in the presence of Puja Bolden PA-C. I performed the above scribed service and agree with the accuracy of the documentation in this encounter. Reviewed and signed by Puja Bolden PA-C [facility] Patient seen in conjunction with staff mailing machine helper: Latha Chaparro MD Section of Dermatology [facility] * Latha Chaparro MD - 03/03/2017 1:30 PM EST Skin cancer examination. ISK treated with LN2. Otherwise benign exam, including SKs and benign nevi. Patient seen in conjunction with Puja (Nikkie) MEENAKSHI Bolden Signed by: LATHA CHAPARRO MD Section of Dermatology [facility] documented in this encounter Plan of Treatment Not on file documented as of this encounter Visit Diagnoses Diagnosis Seborrheic keratosis Other seborrheic keratosis Multiple benign nevi Benign neoplasm of skin, site unspecified Seborrheic keratosis, inflamed Inflamed seborrheic keratosis documented in this encounter Care Teams Apartment Leasing Consultant Relationship Specialty Start Date End Date Alisha Walker MD [address] [place] [address] PCP - General Family Medicine 01/28/17 08/12/21 documented as of this encounter
--- OUTSIDE RECORDS SUMMARY | 2024-04-29 13:36 | XMS_ITS | Encounter Summary ---
[place] [address] Care Team Providers Care Rn Review Name Role Phone Alisha Walker MD Primary Care Provider [phone] Encounter Details Date Type Department Care Team (Late st Contact Info) Description 04/16/2017 8:37 AM EST - 04/16/2017 11:59 PM [facility] Hospital En[place] [address] Kristin Lynne APRN [facility] [address] [place] [address] Encounter for screening mammogram for breast cancer Discharge Disposition: Home Social History Tobacco Use [...] Encounter for screening mammogram for breast cancer documented in this encounter Results * Mammo [...] No mammographic evidence of malignancy. RECOMMENDATION: The [employer] and The Society of [...] Center. BIRADS CATEGORY 1: NEGATIVE Kristin Lynne OPTICAL GOODS WORKER IMG MAMMO ORDERABLE S documented in this encounter Visit Diagnoses Diagnosis Encounter for screening mammogram for breast cancer documented in this encounter Care Teams Rn Review Relationship Specialty Start Date End Date Alisha Walker MD [address] [place] [address] PCP - General Family Medicine 01/28/17 08/12/21 documented as of this encounter
--- OUTSIDE RECORDS SUMMARY | 2024-04-29 13:36 | XMS_ITS | Encounter Summary ---
Author [place] [address] Care Team Providers Care Online Merchandising Manager Name Role Phone Alisha Walker MD Primary Care Provider Encounter Details Date Type Department Care Team (Late st Contact Info) Description 10/28/2020 Orders Only [facility] [place] [address] Tamia Chadwick, [place] Social History Tobacco Use Types Packs/Day Years [...] on filedocumented in this encounter Care Teams Online Merchandising Manager Relationship Specialty Start Date End Date Alisha Walker MD [address] [place] [address] PCP - General Family Medicine 01/28/17 08/12/21 documented as of this encounter
--- OUTSIDE RECORDS SUMMARY | 2024-04-29 13:36 | XMS_ITS | Encounter Summary ---
Author Organization [facility] [place] [address] Care Team Providers Care Bone Process Operator Name Role Phone Og Allen MD Primary Care Provider [phone] Encounter Details Date Type Department Care Team (Late st Contact Info) Description 03/28/2015 [place] [address] Leslie Iyer MD [facility] DR DIAGNOSTIC [place] [address] Abnormal mammogram Social History Tobacco Use Types Packs/Day Years Used Date Smoking Tobacco: Never Assessed Sex and Gender Information Value Date Recorded Sex Assigned at Not on file Gender Identity Not on file Sexual Orientation Not on file documented as of this encounter Plan of Treatment Not on file documented as of this encounter Results * Mammo Breast Us Limited Left (04/05/2015 10:43 AM EST) Anatomical Region Laterality Modality Breast Left Mammography Impressions 04/05/2015 11:46 AM EST IMPRESSION: No mammographic or ultrasound evidence of malignancy with additional imaging of the right and left breast. Resume routine screening. BI-RADS Category 2: Benign Findings * ??The [employer] and The Society of [...] Diagnoses Diagnosis Abnormal mammogram Abnormal mammogram, unspecified Abnormal mammogram Abnormal mammogram, unspecified documented in this encounter Care Teams Bone Process Operator Relationship Specialty Start Date End Date Og Allen MD [address] [place] [id number] PCP - General 01/24/14 04/23/16 documented as of this encounter
--- OUTSIDE RECORDS SUMMARY | 2024-04-29 13:36 | XMS_ITS | Encounter Summary ---
[place] [address] Care Team Providers Care Fruit Raiser Name Role Phone Og Allen MD Primary Care Provider Encounter Details Date Type Department Care Team (Late st Contact Info) Description 10/29/2008 [place] [id number] Alexandr Baker MD Social History Tobacco Use [...] Comments FILM LIBRARY STORAGE ONLY MAMMO Routine 10/29/2008 2:30 PM EDT documented in this encounter Results * Film Library- Storage only Mammo (10/29/2008 2:30 PM EDT) Anatomical Region Laterality Modality Other 10/29/2008 2:30 PM EDT Narrative 01/26/2014 2:44 PM EDT This is a Non-reportable exam Procedure Note KATH, UNSIGNED REPORT - 01/26/2014 This is a Non-reportable exam Alexandr Baker MD IMG FILM LIBRARY ORD ERABLES documented in this encounter Visit Diagnoses Not on filedocumented in this encounter Care Teams Fruit Raiser Relationship Specialty Start Date End Date Og Allen MD [address] [place] [id number] PCP - General 01/24/14 04/23/16 documented as of this encounter
--- OUTSIDE RECORDS SUMMARY | 2024-04-29 13:36 | XMS_ITS | Encounter Summary ---
Author Organization [facility] [place] [address] Care Team Providers Care Roll Scale Worker Name Role Phone Alisha Walker MD Primary Care Provider [phone] Reason for Visit * Reason Comments Knee Pain new patient visit * Consultation (Routine) - Closed Specialty Diagnoses / Procedures Referred By Contac t Referred To Contact [facility] Diagnoses Pain- Betito knee pain/ XR 07/08/20 in [facility]/ injections before/ ? RFA Ernesto Valero MD [address] [place] [address] [facility] [place] [address] Referral ID Status Reason Start Date Expiration Date Visits Re quested Visits Authorized [id number] Closed 10/18/2020 10/18/2021 1 1 Encounter Details Date Type Department Care Team (Late st Contact Info) Description 10/29/2020 1:30 PM EDT Office Visit [place] [address] Noemi Recio MD [facility] [place] [address] Bilateral chronic knee pain Social History Tobacco Use Types Packs/Day Years Used Date Smoking Tobacco: Never Smokeless Tobacco: Never Sex and Gender Information Value Date Recorded Sex Assigned at Not on file Gender Identity Not on file Sexual Orientation Not on file documented as of this encounter Last Filed Vital Signs Vital Sign Reading Time Taken Comments Blood Pressure 127/77 10/29/2020 1:31 PM EDT Pulse 87 10/29/2020 1:31 PM EDT Temperature - - Respiratory Rate - - Oxygen Saturation 99% 10/29/2020 1:31 PM EDT Inhaled Oxygen Concentration - - Weight 68 kg (150 lb) 10/29/2020 1:31 PM EDT Height - - Body Mass Index - - documented in this encounter Patient Instructions * Patient Instructions* Noemi Recio MD - 10/29/2020 1:30 PM EDT Genicular Nerve block (first step temporary) Genicular Nerve RFA (second step, long lasting) documented in this encounter Progress Notes * Noemi Recio MD - 10/29/2020 1:30 PM EDT Images from the original note were not included. [facility] Initial Consultation Note DOS: 10/29/20 : 1950 Ángela Haines is a 70 y.o. year old female with a H knee OA who presents to the pain clinic today at the referral of Ernesto Valero MD [address] [place] [address] for consultation regarding knee pain ? RFA. CC: Chief Complaint Patient presents with ??? Knee Pain new patient visit HPI: Ángela Haines prefers to be called Ángela. He/she is accompanied today by Clint. He/she is unaccompanied today. She has bilateral knee pain with a history of patellofemoral arthritis. She saw Rheumatology in 20s started on high dose asa for a while. She has been Undergone PT and seen by orthopedics and trailed IA steroid injection 10/16 which made pain worse. Her flexibility is also decreased.She is interested in potential RFA. Pain is always present but varies in severity. She just startedVoltaren helps decrease pain significantly at rest not much with activity. Flexibility is a tiny bit better. Doing HEP. Pain Description: Duration - since 20s Location - bilateral anterior knee Quality - tightness Weakness - + giveaway weakness with stairs Numbness/Tingling - Bilateral feet Pain score: 10 /10 at worst, 1/10 at best (with Voltaren) (all in past week) Alleviating factors: Voltaren Aggravating factors: weather, changes, climb stairs, rising from seated, standing, walking Prior Treatments/Medications (Per prior notes and patient): Medications : Topicals - Diclofenac -> helpful NSAIDs -None Acetaminophen -> not helpful Antidepressants - None Antieptileptics - None Muscle Relaxants - None Opioids -None Steroids - None PT: Yes with some benefit Modalities: Surgery: None for knees Injections: IA knee injection x 1 08/2020 Chiropractic:None Acupuncture:None Mental Health:None ROS: Constitutional: No unintentional weight loss or gain, fevers, chills, or night sweats. HENT: No recent hearing changes. No difficulty swallowing. Eyes: No recent vision changes. Respiratory: No cough or shortness of breath. Cardiovascular: No chest pain or syncope. GI: No diarrhea, nausea, vomiting, or constipation. : No dysuria, hesitancy, or urgency. No incontinence. Musculoskeletal: No muscle weakness. Skin: No rashes or lesions. Neurologic: No numbness/tingling. No difficulty with balance, clumsy has tripped Psychiatric: Mood ok. No SI/HI. Sleep is good generally. Heme/Lymph/Imm: No easy bleeding or brusing. PMH/PSH: There is no problem list on file for this patient. No past medical history on file. Past Surgical History: Procedure Laterality Date ??? OVARY REMOVAL Right FAMILY HISTORY: Family History Problem Relation Age of Onset ??? 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 Family history of Substance Abuse Alcohol [] 1 [] 3 Illegal Drugs [] 2 [] 3 Prescription Drugs [] 4 [] 4 2. Personal History of Substance Abuse Alcohol [] 3 [] 3 Illegal Drugs [] 4 [] 4 Prescription Drugs [] 5 [] 5 3. Age (patricio box if 16-45) [] 1 [] 1 4. History of Preadolescent Sexual Abuse [] 3 [] 0 5. Psychological Disease Attention Deficit Disorder, Obsessive Compulsive D/o, Bipolar, Schizophrenia [] 2 [] 2 Depression [] 1 [] 1 TOTAL: 0 Comments about ORT in relation to this patient: Opioid Risk Category: low risk 0-3 FUNCTIONAL STATUS: Independent in all ADLs. MEDICATIONS: Current Outpatient Medications: ??? cannabidioL (Epidiolex) 100 mg/mL Solution, Take by mouth 2 times daily. *Liquid Drops*, Disp: , Rfl: ??? cholecalciferol, Vitamin D3, 25 mcg (1,000 unit) Capsule, Take 1,000 Units by mouth daily., Disp: , Rfl: ??? estradioL (ESTRACE) 0.01 % (0.1 mg/gram) Cream, Place vaginally., Disp: , Rfl: ??? aspirin 81 mg Tablet, Chewable, Take 81 mg by mouth daily., Disp: , Rfl: ??? diclofenac (VOLTAREN) 1 % Gel, Apply topically daily as needed., Disp: , Rfl: PDMP report checked and no inconsistencies are noted. ALLERGIES: No Known Allergies PHYSICAL EXAM: General: Patient is seated comfortably in NAD, well-groomed. HEENT: Head atraumatic, EOMI. Respiratory: Breathing comfortably on RA. Cardiovascular: 2+ peripheral pulses, no swelling Skin: No appreciable rashes or skin breakdown Psych: Appropriate affect, A&Ox3 , answers questions appropriately Musculoskeletal: Inspection - No gross appendicular or axial deformities Palpation - + tender to palpation over anteromedial joint line ROM - Decreased knee ROM Neurologic: etl informatica architect - grossly intact Reflexes - 2+ and symmetric in bilateral patellae, and Achilles. No ankle clonus. Motor - 5/5 in all planes of motion in all four extremities. Sensation - Intact to light touch throughout all four extremities Gait/Station: Normal gait. No loss of balance noted. Transitions from exam room chair to table without difficulty. TESTS/IMAGING: A/P: Ángela is a 70 yr old female with patellofemoral arthritis and knee pain presents for consideration of Genicular RFA. She has tried PT, OTC analgesics, topical, and IA injection without adequate improvement. I think this is a reasonable option prior to considering a Partial TKA. We discussed the procedure and the process in depth including risks and benefits and she would like to proceed. Procedures: 1. Bilateral Genicular Nerve Block if good relief will refer to [facility] for cooled RFA Medications: 1. Refill Voltaren Gel today which she finds helpful Imagin. None at this time Referrals: 1. None at this time Adjunctive Therapy: 1. None at this time Follow Up: 1. prn Thank you for allowing us the opportunity to participate in Ms Haines's care. Noemi Recio MD [facility] [employer] Specialist of Anesthesiology [facility] [address] [address] / [facility] CC: Ernesto Valero MD [address] [place] [address] documented in this encounter Plan of Treatment Not on file documented as of this encounter Visit Diagnoses Diagnosis Bilateral chronic knee pain Pain in joint, lower leg documented in this encounter Care Teams Roll Scale Worker Relationship Specialty Start Date End Date Alisha Walker MD [address] [place] [address] PCP - General Family Medicine 01/28/17 08/12/21 documented as of this encounter
--- OUTSIDE RECORDS SUMMARY | 2024-04-29 13:36 | XMS_ITS | Encounter Summary ---
[place] [address] Care Team Providers Care Reel Winder Name Role Phone Og Allen MD Primary Care Provider Encounter Details Date Type Department Care Team (Late st Contact Info) Description 03/28/2015 9:30 AM EST - 03/28/2015 11:59 PM EST Hospital [place] [address] Kristin Lynne [facility] [employer] [address] [place] [address] Encounter for screening mammogram for breast cancer [...] Associated Diagnosis Comments MAMMO SCREENING CAD AND CEDRICK BILATERAL Routine 03/28/2015 10:03 AM EST Encounter for screening mammogram for breast cancer documented in this encounter Results * Mammo Digital Bilateral Screening With CAD and Tomosynthesis (03/28/2015 10:03 AM EST) Anatomical Region Laterality Modality Breast Bilateral Mammography Impressions 03/28/2015 10:16 AM EST IMPRESSION: BIRADS CATEGORY 0: Additional imaging required RECOMMENDATION: The patient will be contacted regarding the additional imaging. Narrative 03/28/2015 10:16 AM EST REASON FOR EXAM: Screening TECHNIQUE: CC and MLO views were obtained of the Bilateral breast.Computer aided detection was used. 3D tomosynthesis images were obtained in addition to 2D images.?Computer assisted detection was used. FINDINGS: Breast density: The breasts are heterogeneously dense, which may obscure small masses. The Left breast is abnormal and additional imaging is required. There is a ??13 mm well-defined mass in the upper outer quadrant of the left breast, possibly a cyst The Right breast is abnormal and additional imaging is required. There is a ??10 mm asymmetric density in the deep central cc only Kristin Lynne [facility] MAMMO ORDERABLE S documented in this encounter Visit Diagnoses Diagnosis Encounter for screening mammogram for breast cancer documented in this encounter Care Teams Reel Winder Relationship Specialty Start Date End Date Og Allen MD [address] [place] [address] PCP - General 01/24/14 04/23/16 documented as of this encounter
--- OUTSIDE RECORDS SUMMARY | 2024-04-29 13:36 | XMS_ITS | Encounter Summary ---
Author Organization [facility] [address] Care Team Providers Care Quality Control Analyst Name Role Phone Og Allen MD Primary Care Provider [phone] Encounter Details Date Type Department Care Team (Latest Contact Info) Description 04/05/2015 9:51 AM EST Hospital En[place] [address] Leslie Iyer MD [facility] DR [place] [address] Abnormal mammogram Discharge Disposition: Home Social History [...] Name Priority Date/Time Associated Diagnosis Comments MAMMO BREAST US LIMITED LEFT Routine 04/05/2015 10:43 AM EST Abnormal mammogram documented in this encounter Results * Mammo Breast Us Limited Left (04/05/2015 10:43 AM EST) Anatomical Region Laterality Modality Breast Left Mammography Impressions 04/05/2015 11:46 AM EST IMPRESSION: No mammographic or ultrasound evidence of malignancy with additional imaging of the right and left breast. Resume routine screening. BI-RADS Category 2: Benign Findings * ??The [employer] and The Society of [...] unspecified documented in this encounter Care Teams Quality Control Analyst Relationship Specialty Start Date End Date Og Allen MD [address] [place] [id number] PCP - General 01/24/14 04/23/16 documented as of this encounter
--- OUTSIDE RECORDS SUMMARY | 2024-04-29 13:36 | XMS_ITS | Encounter Summary ---
[place] [address] Care Team Providers Care Heel Seat Pounder Name Role Phone Og Allen MD Primary Care Provider Encounter Details Date Type Department Care Team (Late st Contact Info) Description 12/06/2012 [place] [address] Alexandr Baker MD Social History Tobacco Use [...] Comments FILM LIBRARY STORAGE ONLY MAMMO Routine 12/06/2012 2:35 PM EDT documented in this encounter Results * Film Library- Storage only Mammo (12/06/2012 2:35 PM EDT) Anatomical Region Laterality Modality Other 12/06/2012 2:35 PM EDT Narrative 01/26/2014 2:48 PM EDT This is a Non-reportable exam Procedure Note KATH, UNSIGNED REPORT - 01/26/2014 This is a Non-reportable exam Alexandr Baker MD IMG FILM LIBRARY ORD ERABLES documented in this encounter Visit Diagnoses Not on filedocumented in this encounter Care Teams Heel Seat Pounder Relationship Specialty Start Date End Date Og Allen MD [address] [place] [id number] PCP - General 01/24/14 04/23/16 documented as of this encounter
--- OUTSIDE RECORDS SUMMARY | 2024-04-29 13:36 | XMS_ITS | Encounter Summary ---
[place] [address] Care Team Providers Care Advertising Manager Name Role Phone Og Allen MD Primary Care Provider [phone] Encounter Details Date Type Department Care Team (Late st Contact Info) Description 08/04/2006 [place] [phone] Alexandr Baker MD Social History Tobacco Use [...] Comments FILM LIBRARY STORAGE ONLY MAMMO Routine 08/04/2006 2:25 PM EDT documented in this encounter Results * Film Library- Storage only Mammo (08/04/2006 2:25 PM EDT) Anatomical Region Laterality Modality Other 08/04/2006 2:25 PM EDT Narrative 01/26/2014 2:41 PM EDT This is a Non-reportable exam Procedure Note KATH, UNSIGNED REPORT - 01/26/2014 This is a Non-reportable exam Alexandr Baker MD IMG FILM LIBRARY ORD ERABLES documented in this encounter Visit Diagnoses Not on filedocumented in this encounter Care Teams Advertising Manager Relationship Specialty Start Date End Date Og Allen MD [address] [place] [address] PCP - General 01/24/14 04/23/16 documented as of this encounter
--- OUTSIDE RECORDS SUMMARY | 2024-04-29 13:36 | XMS_ITS | Encounter Summary ---
Author Organization [facility] [place] [address] Care Team Providers Care Lamp Assembler Name Role Phone Og Allen MD Primary Care Provider Encounter Details Date Type Department Care Team (Late st Contact Info) Description 01/26/2014 External Results XRay at [address] [place] [address] Provider, Scanning Social History Tobacco Use Types Packs/Day Years Used Date Smoking Tobacco: Never Assessed Sex and Gender Information Value Date Recorded Sex Assigned at Not on file Gender Identity Not on file Sexual Orientation Not on file documented as of this encounter Plan of Treatment Not on file documented as of this encounter Procedures Procedure Name Priority Date/Time Associated Diagnosis Comments MAMMOGRAM SCAN Routine 12/06/2012 MAMMOGRAM SCAN Routine 09/10/2011 MAMMOGRAM SCAN Routine 05/28/2010 documented in this encounter Results * Scan Doc: Mammogram (12/06/2012) Anatomical Region Laterality Modality Other Scanning Provider MEDIA MGR SCAN EXT O RDR/RSLT * Scan Doc: Mammogram (09/10/2011) Anatomical Region Laterality Modality Other Scanning Provider MEDIA MGR SCAN EXT O RDR/RSLT * Scan Doc: Mammogram (05/28/2010) Anatomical Region Laterality Modality Other Scanning Provider MEDIA MGR SCAN EXT O RDR/RSLT documented in this encounter Visit Diagnoses Not on filedocumented in this encounter Care Teams Lamp Assembler Relationship Specialty Start Date End Date Og Allen MD [address] [place] [address] PCP - General 01/24/14 04/23/16 documented as of this encounter
--- OUTSIDE RECORDS SUMMARY | 2024-04-29 13:36 | XMS_ITS | Encounter Summary ---
[place] [address] Care Team Providers Care Physician Office Nurse Name Role Phone Og Allen MD Primary Care Provider Encounter Details Date Type Department Care Team (Late st Contact Info) Description 05/28/2010 [place] [address] Alexandr Baker MD Social History Tobacco Use [...] Comments FILM LIBRARY STORAGE ONLY MAMMO Routine 05/28/2010 2:30 PM EST documented in this encounter Results * Film Library- Storage only Mammo (05/28/2010 2:30 PM EST) Anatomical Region Laterality Modality Other 05/28/2010 2:30 PM EST Narrative 01/26/2014 2:45 PM EDT This is a Non-reportable exam Procedure Note KATH, UNSIGNED REPORT - 01/26/2014 This is a Non-reportable exam Alexandr Baker MD IMG FILM LIBRARY ORD ERABLES documented in this encounter Visit Diagnoses Not on filedocumented in this encounter Care Teams Physician Office Nurse Relationship Specialty Start Date End Date Og Allen MD [address] [place] [id number] PCP - General 01/24/14 04/23/16 documented as of this encounter
--- OUTSIDE RECORDS SUMMARY | 2024-04-29 13:36 | XMS_ITS | Encounter Summary ---
[place] [address] Care Team Providers Care Chief Of Surgery Name Role Phone Og Allen MD Primary Care Provider Encounter Details Date Type Department Care Team (Late st Contact Info) Description 09/10/2011 [place] [address] Alexandr Baker MD Social History Tobacco Use [...] Comments FILM LIBRARY STORAGE ONLY MAMMO Routine 09/10/2011 2:30 PM EDT documented in this encounter Results * Film Library- Storage only Mammo (09/10/2011 2:30 PM EDT) Anatomical Region Laterality Modality Other 09/10/2011 2:30 PM EDT Narrative 01/26/2014 2:46 PM EDT This is a Non-reportable exam Procedure Note KATH, UNSIGNED REPORT - 01/26/2014 This is a Non-reportable exam Alexandr Baker MD IMG FILM LIBRARY ORD ERABLES documented in this encounter Visit Diagnoses Not on filedocumented in this encounter Care Teams Chief Of Surgery Relationship Specialty Start Date End Date Og Allen MD [address] [place] [address] PCP - General 01/24/14 04/23/16 documented as of this encounter
== END 2024-04-29 13:35 | disposition home or self-care (01) ==
LOC: ER 13:34
PROVIDERS: Emergency Provider Emergency Medicine; PCP Nurse Practitioner Family
DX: J10.1 Influenza due to other identified influenza virus with other respiratory manifestations (principal)
CPT/HCPCS: 80053; 87637; 94640; 99284; 71046; 83735; 85025; J1100; J7620

== ENCOUNTER 2024-05-01 11:52 | Emergency (ER) | payer MEDICARE, BC, SELFPAY ==
--- NOTE | 2024-05-01 11:45 | DI.RAD_ITS ---
Exam(s) XR CHEST 2V PA LATERAL EXAM: XR CHEST 2V PA LATERAL CLINICAL HISTORY: Shortness of breath TECHNIQUE: 2D digital imaging was performed. Two views. COMPARISON: No exams were available for comparison FINDINGS: HEART: Normal size. Aorta: Mildly tortuous. PULMONARY VASCULATURE: Normal. MEDIASTINUM: Unremarkable. LUNGS: Clear. PLEURAL SPACE: No pleural effusion or pneumothorax. BONE:Unremarkable for age. SOFT TISSUES: Unremarkable. IMPRESSION: No acute abnormality. DATA REPOSITORY: RADIATION DOSE DELIVERED:
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
[2024-05-01 12:01] VITALS: BP 165/93; PULSE 80; RESP 16; TEMP 36.9; O2SAT 96
[2024-05-01 12:12] VITALS: BP 165/93; PULSE 80; RESP 16; TEMP 36.9; O2SAT 96
--- OUTSIDE RECORDS SUMMARY | 2024-05-01 12:23 | XMS_ITS | Encounter Summary ---
[place] [address] Care Team Providers Care Precision Layout Worker Name Role Phone Ann Leach APRN Primary Care Provider [phone] Encounter Details Date Type Department Care Team [...] on filedocumented in this encounter Care Teams Precision Layout Worker Relationship Specialty Start Date End Date Ann Leach APRN [address] [place] [address] PCP - General Family Medicine 08/13/21 documented as of this encounter
--- OUTSIDE RECORDS SUMMARY | 2024-05-01 12:23 | XMS_ITS | Encounter Summary ---
[place] [address] Care Team Providers Care Brand Advisor Name Role Phone Ann Leach APRN Primary Care Provider [phone] Reason for Referral * Consultation (Routine) - Closed Specialty Diagnoses / Procedures Referred By Contac t Referred To Contact Pain and Spine Center Diagnoses Pain, lumbar region Osteoporosis, unspecified osteoporosis type, unspecified pathological fracture presence low back pain / L2 vertebral fx / CT abd & Pelvis & Lumbar resconstruction 07/12/22 in eD Ann Leach APRN [address] [place] [address] [facility] [place] [address] Referral ID Status Reason Start Date Expiration Date V isits Requested Visits Authorized [id number] Closed Consult, Test & Treat PCP Updated and/or Approved 07/18/2022 07/18/2023 6 6 Encounter Details Date Type Department Care Team (Latest Contact Info) Description 07/18/2022 Transcribe Orders eD Incoming Referrals [phone] Ann Leach APRN [address] [place], [place] [id number] Pain, lumbar region; Osteoporosis, unspecified osteoporosis type, [...] presence documented in this encounter Care Teams Brand Advisor Relationship Specialty Start Date End Date Ann Leach APRN [address] [place] [address] PCP - General Family Medicine 08/13/21 documented as of this encounter
--- OUTSIDE RECORDS SUMMARY | 2024-05-01 12:23 | XMS_ITS | Encounter Summary ---
[place] [address] Care Team Providers Care Merchandising Professor Name Role Phone Ann Leach ANTONIO Primary Care Provider [phone] Reason for Visit * Reason Comments Follow-up S/P Closed compressi on fracture of L2 Lumbar vertebra Encounter Details Date Type Department Care Team (Late st Contact Info) Description 10/21/2022 1:30 PM EDT Office Visit [facility] [place] [address] Sydni Silva APRN [facility] [place] [address] Closed compression fracture of L2 lumbar vertebra [...] Silva APRN - 10/21/2022 1:30 PM EDT [facility] Medical Decision Making: [...] APRN Referring Provider: Ann Silva APRN 10/21/2022 [facility] documented in this encounter Plan of Treatment Not on file documented as of this encounter Visit Diagnoses Diagnosis Closed compression fracture of L2 lumbar vertebra with routine healing, subsequent encounter documented in this encounter Care Teams Merchandising Professor Relationship Specialty Start Date End Date Ann Leach APRN [address] [place] [address] PCP - General Family Medicine 08/13/21 documented as of this encounter
--- OUTSIDE RECORDS SUMMARY | 2024-05-01 12:23 | XMS_ITS | Encounter Summary ---
[place] [address] Care Team Providers Care Topographical Surveyor Name Role Phone Ann Leach APRN Primary Care Provider [phone] Reason for Referral * Psychiatric (Routine) - Closed Specialty Diagnoses / Procedures Referred By Annalee t Referred To Contact Psychiatry Diagnoses Body dysmorphic disorder Anxiety disorder, unspecified Ann Leach APRN [address] [place] [address] [facility] [place] [address] Referral ID Status Reason Start Date Expiration Date V isits Requested Visits Authorized [id number] Closed Consult, Test & Treat PCP Updated and/or Approved 06/01/2023 05/31/2024 12 12 Encounter Details Date Type Department Care Team (Latest Contact Info) Description 06/07/2023 Transcribe Orders eDH Incoming Referrals [phone] Ann Leach APRN [address] [place] [address] Body dysmorphic disorder Social History [...] Hypochondriasis documented in this encounter Care Teams Topographical Surveyor Relationship Specialty Start Date End Date Ann Leach APRN [address] [place] [address] PCP - General Family Medicine 08/13/21 documented as of this encounter
--- OUTSIDE RECORDS SUMMARY | 2024-05-01 12:23 | XMS_ITS | Encounter Summary ---
[place] [address] Care Team Providers Care Telephone Plant Power Operator Name Role Phone Ann Leach APRN Primary Care Provider [phone] Encounter Details Date Type Department Care Team [...] on filedocumented in this encounter Care Teams Telephone Plant Power Operator Relationship Specialty Start Date End Date Ann Leach APRN [address] [place] [address] PCP - General Family Medicine 08/13/21 documented as of this encounter
--- OUTSIDE RECORDS SUMMARY | 2024-05-01 12:23 | XMS_ITS | Encounter Summary ---
Author Organization [facility] [place] [address] Care Team Providers Care Campaign Director Name Role Phone Ann Leach APRN Primary Care Provider [phone] Encounter Details Date Type Department Care Team (Late st Contact Info) Description 07/12/2022 Ancillary Procedure Radiology Library at [facility] [place] [address] Ann Leach APRN [address] [place], [place] [id number] Social History Tobacco Use Types Packs/Day Years [...] Leach APRN IMG FILM LIBRARY ORDERABLES [place], [place] documented in this encounter Visit Diagnoses Not on filedocumented in this encounter Care Teams Campaign Director Relationship Specialty Start Date End Date Ann Leach APRN [address] [place] [address] PCP - General Family Medicine 08/13/21 documented as of this encounter
--- OUTSIDE RECORDS SUMMARY | 2024-05-01 12:23 | XMS_ITS | Clinical Summary ---
Author Organization [facility] Address [facility] [place] [address] Care Team Providers Care Hole Filler Name Role Phone Joann Leachhryn Sal ALVAREZ Primary Care Provider [phone] Allergies Active Allergy Reactions Criticality Noted Date [...] No mammographic evidence of malignancy. RECOMMENDATION: [employer] and The Society of [...] Recently Relevant to Health Maintenance Care Teams Hole Filler Relationship Specialty Start Date End Date Ann Leach APRN [address] [place] [address] PCP - General Family Medicine 08/13/21
--- OUTSIDE RECORDS SUMMARY | 2024-05-01 12:23 | XMS_ITS | Encounter Summary ---
Author Organization [facility] Address [facility] [place] [address] Care Team Providers Care Vp Digital Marketing Social Media And Crm Name Role Phone HanyJoannAnn Sal ALVAREZ Primary Care Provider [phone] Encounter Details Date Type Department Care Team (Latest Contact Info) Description 10/21/2022 12:13 PM EDT - 10/21/2022 11:59 PM EDT Hospital Encounter XRay at [address] [place] [address] Sydni Silva APRN [facility] [place] [address] Closed compression fracture of L2 lumbar vertebra [...] who have questions please contact the health animal care worker that requested your imaging first. ? Narrative [...] patients who have questions please contactthe health animal care worker that requested your imaging first. Sydni Silva APRN IMG DX ORDERABLES documented in this encounter Visit Diagnoses Diagnosis Closed compression fracture of L2 lumbar vertebra with routine healing, subsequent encounter documented in this encounter Care Teams Vp Digital Marketing Social Media And Crm Relationship Specialty Start Date End Date Ann Leach APRN [address] [place] [address] PCP - General Family Medicine 08/13/21 documented as of this encounter
--- OUTSIDE RECORDS SUMMARY | 2024-05-01 12:23 | XMS_ITS | Encounter Summary ---
Author Organization [facility] Address [facility] [place] [address] Care Team Providers Care Lean Leader Name Role Phone Ann Leach ANTONIO Primary Care Provider [phone] Encounter Details Date Type Department Care Team (Latest Contact Info) Description 08/27/2021 7:00 AM EDT - 08/27/2021 11:59 PM EDT Hospital Encounter XRay at [address] [place] [address] Roxy Haskins MD [facility] [place] [address] History of total bilateral knee replacement Discharge [...] * XR Knee Standing Alignment AP Lat [place] Bilat (08/27/2021 7:28 AM EDT) Anatomical Region [...] who have questions please contact the health critical care rn that requested your imaging first. ? Narrative 08/27/2021 9:34 AM EDT EXAMINATION: XR [...] patients who have questions please contactthe health critical care rn that requested your imaging first. Roxy Haskins MD IMG DX ORDERABLES documented in this encounter Visit Diagnoses Diagnosis History of total bilateral knee replacement documented in this encounter Care Teams Lean Leader Relationship Specialty Start Date End Date Ann Leach APRN [address] [place] [address] PCP - General Family Medicine 08/13/21 documented as of this encounter
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
--- OUTSIDE RECORDS SUMMARY | 2024-05-01 12:24 | XMS_ITS | Encounter Summary ---
[place] [address] Care Team Providers Care Importer Or Exporter Name Role Phone Alisha Walker MD Primary Care Provider [phone] Encounter Details Date Type Department Care Team (Late st Contact Info) Description 11/18/2020 Telephone [place] [id number] Carlota Blair RN Social History Tobacco Use [...] contacts Identified myself and provided callback number: [phone]. 1. Patient instructed to arrive at 1130 on 11/20/20 with their equipment driver for their GNB procedure. 2. Bring [...] on filedocumented in this encounter Care Teams Importer Or Exporter Relationship Specialty Start Date End Date Alisha Walker MD [address] [place] [address] PCP - General Family Medicine 01/28/17 08/12/21 documented as of this encounter
--- OUTSIDE RECORDS SUMMARY | 2024-05-01 12:24 | XMS_ITS | Encounter Summary ---
[place] [address] Care Team Providers Care Door Paneler Name Role Phone Alisha Walker MD Primary Care Provider [phone] Encounter Details Date Type Department Care Team (Late st Contact Info) Description 10/28/2020 Orders Only [facility] [place] [address] Tamia Chadwick, ERICKSON Social History Tobacco Use [...] on filedocumented in this encounter Care Teams Door Paneler Relationship Specialty Start Date End Date Alisha Walker MD [address] [place] [address] PCP - General Family Medicine 01/28/17 08/12/21 documented as of this encounter
--- OUTSIDE RECORDS SUMMARY | 2024-05-01 12:24 | XMS_ITS | Encounter Summary ---
Author Organization [facility] [place] [address] Care Team Providers Care Loom Mechanic Name Role Phone Alisha Walker MD Primary Care Provider [phone] Encounter Details Date Type Department Care Team (Late st Contact Info) Description 11/20/2020 12:00 PM EDT Ancillary [place] [address] Noemi Recio MD [facility] [place] [address] Pain Social History Tobacco Use Types Packs/Day [...] pain documented in this encounter Care Teams Loom Mechanic Relationship Specialty Start Date End Date Alisha Walker MD [address] [place] [address] PCP - General Family Medicine 01/28/17 08/12/21 documented as of this encounter
--- OUTSIDE RECORDS SUMMARY | 2024-05-01 12:24 | XMS_ITS | Encounter Summary ---
[place] [address] Care Team Providers Care Collator Hand Name Role Phone Alisha Walker MD Primary Care Provider [phone] Encounter Details Date Type Department Care Team (Late st Contact Info) Description 10/29/2020 Notes Only [place] [id number] Stephanie Rabago Social History Tobacco Use Types [...] patient which included the following information:Appointment Details, Joint Creaser Requirement and Educational Booklet documented in this encounter Plan of Treatment Not on file documented as of this encounter Visit Diagnoses Not on filedocumented in this encounter Care Teams Collator Hand Relationship Specialty Start Date End Date Alisha Walker MD [address] [place] [address] PCP - General Family Medicine 01/28/17 08/12/21 documented as of this encounter
--- OUTSIDE RECORDS SUMMARY | 2024-05-01 12:24 | XMS_ITS | Encounter Summary ---
Author Organization [facility] [place] [address] Care Team Providers Care Sand Blaster Name Role Phone Ann Leach APRN Primary Care Provider [phone] Encounter Details Date Type Department Care Team (Late st Contact Info) Description 08/26/2021 Orders [place] [address] Francisco Mcginnis MD [facility] [place] [address] Chronic pain of both knees Social History [...] knees documented in this encounter Care Teams Sand Blaster Relationship Specialty Start Date End Date Ann Leach APRN [address] [place] [address] PCP - General Family Medicine 08/13/21 documented as of this encounter
--- OUTSIDE RECORDS SUMMARY | 2024-05-01 12:24 | XMS_ITS | Encounter Summary ---
Author Organization [facility] [place] [address] Care Team Providers Care Him Director Name Role Phone Ann Leach APRN Primary Care Provider [phone] Encounter Details Date Type Department Care Team (Late st Contact Info) Description 08/14/2021 Orders Only [place] [address] Leslie Paz PA [facility] [place] [address] History of total bilateral knee replacement Social [...] replacement documented in this encounter Care Teams Him Director Relationship Specialty Start Date End Date Ann Leach APRN [address] [place] [address] PCP - General Family Medicine 08/13/21 documented as of this encounter
--- OUTSIDE RECORDS SUMMARY | 2024-05-01 12:24 | XMS_ITS | Encounter Summary ---
Author Organization [facility] [place] [address] Care Team Providers Care Waterworks Operator Name Role Phone Alisha Walker MD Primary Care Provider [phone] Encounter Details Date Type Department Care Team (Late st Contact Info) Description 12/13/2020 1:15 PM EDT Ancillary [place] [address] Noemi Recio MD [facility] [place] [address] Pain Social History Tobacco Use Types Packs/Day [...] Clinic Ultrasound (12/13/2020 1:43 PM EDT) Narrative [facility] - 12/13/2020 1:43 PM EDT See PACS for result report. Noemi Recio MD IMG FILM LIBRARY ORDERABLES [place], [place] documented in this encounter Visit Diagnoses Diagnosis Pain Generalized pain documented in this encounter Care Teams Waterworks Operator Relationship Specialty Start Date End Date Alisha Wlaker MD [address] [place] [address] PCP - General Family Medicine 01/28/17 08/12/21 documented as of this encounter
--- OUTSIDE RECORDS SUMMARY | 2024-05-01 12:24 | XMS_ITS | Encounter Summary ---
Author Organization [facility] [place] [address] Care Team Providers Care Lumber Piler Name Role Phone Alisha Walker MD Primary Care Provider [phone] Encounter Details Date Type Department Care Team (Late st Contact Info) Description 07/08/2020 Ancillary Procedure Radiology Library at [facility] [place] Mathis [phone] Alisha Walker MD [address] [place], [place] [address] Social History Tobacco Use Types Packs/Day Years [...] IMG FILM LIBRARY ORD ERABLES [place] documented in this encounter Visit Diagnoses Not on filedocumented in this encounter Care Teams Lumber Piler Relationship Specialty Start Date End Date Alisha Walker MD [address] [place] [address] PCP - General Family Medicine 01/28/17 08/12/21 documented as of this encounter
--- OUTSIDE RECORDS SUMMARY | 2024-05-01 12:24 | XMS_ITS | Encounter Summary ---
Author Organization [facility] [place] [address] Care Team Providers Care Folder Machine Name Role Phone Alisha Walker MD Primary Care Provider [phone] Encounter Details Date Type Department Care Team (Late st Contact Info) Description 12/13/2020 1:15 PM EDT - 12/13/2020 1:45 PM [place]T [place] [address] Noemi Recio MD [facility] [place] [address] INJECTION,ANESTHETIC AGENT(S) AND/OR STEROID,GENICULAR NERVE BRANCHES,INCLUDING IMAGING [...] Do not apply heat today. {CHECK BOX SELECTION:03931} You received medication through an intravenous line to lessen the anxiety/pain of your procedure. DO NOT operate heavy or dangerous equipment/tools, or sign important papers today. Attempt to empty your bladder 4-6 hours after your procedure. {CHECK BOX SELECTION:89363} If you have diabetes, monitor your blood [...] Sincerely, Balaji Desouza MD Pain Medicine Fellow [address] [address] / [facility] CC: Alisha Walker MD [address] [place] [address] documented in this encounter Miscellaneous Notes * Op Note - Noemi Recio MD - 12/13/2020 1:15 PM EDT Pain Management Operative Note Patient Name: Ángela Haines : [id number] MR#: [id number] Case Date: 12/13/2020 Surgeon: Surgeon(s) and Role: [...] Pain Management Center Assisant Professor of Anesthesiology [facility] [employer] [address] [address] / [facility] documented in this encounter Plan of Treatment [...] nerve) documented in this encounter Care Teams Folder Machine Relationship Specialty Start Date End Date Alisha Walker MD [address] [place] [address] PCP - General Family Medicine 01/28/17 08/12/21 documented as of this encounter
--- OUTSIDE RECORDS SUMMARY | 2024-05-01 12:24 | XMS_ITS | Encounter Summary ---
[place] [address] Care Team Providers Care Wire Mesh Knitter Name Role Phone Alisha Walker MD Primary Care Provider Encounter Details Date Type Department Care Team (Late st Contact Info) Description 10/29/2020 Telephone [place] [address] Carlota Blair, RN Social History [...] 2:22 PM EDT In coming call from [facility] in [facility] needs the Volterin Gel order to be more specific. They want to know where on the body to put it, the grams to apply and how many times per day. documented in this encounter Plan of Treatment Not on file documented as of this encounter Visit Diagnoses Not on filedocumented in this encounter Care Teams Wire Mesh Knitter Relationship Specialty Start Date End Date Alisha Walker MD [address] [place] [address] PCP - General Family Medicine 01/28/17 08/12/21 documented as of this encounter
--- OUTSIDE RECORDS SUMMARY | 2024-05-01 12:24 | XMS_ITS | Encounter Summary ---
Author Organization [facility] [place] [address] Care Team Providers Care Business Management Manager Name Role Phone Alisha Walker MD Primary Care Provider [phone] Encounter Details Date Type Department Care Team (Late st Contact Info) Description 12/25/2020 Orders Only [facility] [place] [address] [facility] [place] [address] Bilateral chronic knee pain (Primary Dx) Social [...] leg documented in this encounter Care Teams Business Management Manager Relationship Specialty Start Date End Date Alisha Walker MD [address] [place] [address] PCP - General Family Medicine 01/28/17 08/12/21 documented as of this encounter
--- OUTSIDE RECORDS SUMMARY | 2024-05-01 12:24 | XMS_ITS | Encounter Summary ---
Author Organization [facility] [place] [address] Care Team Providers Care Inspectors And Regulatory Officers Name Role Phone Alisha Walker MD Primary Care Provider [phone] Reason for Visit * Reason Comments Knee Pain new patient visit * Consultation (Routine) - Closed Specialty Diagnoses / Procedures Referred By Contac t Referred To Contact Pain and Spine Center Diagnoses Pain- Betito knee pain/ XR 07/08/20 in [facility]/ injections before/ ? RFA Ernesto Valero MD [address] [place] [address] [facility] [place] [address] Referral ID Status Reason Start Date Expiration Date Visits Re quested Visits Authorized [id number] Closed 10/18/2020 10/18/2021 1 1 Encounter Details Date Type Department Care Team (Late st Contact Info) Description 10/29/2020 1:30 PM EDT Office Visit [facility] [place] [address] Noemi Recio MD [facility] [address] Bilateral chronic knee pain Social History Tobacco [...] from the original note were not included. [facility] Initial Consultation Note DOS: 10/29/20 : 1950 Ángela Haines is a 70 y.o. year old female with a H knee OA who presents to the pain clinic today at the referral of Ernesto Valero MD [address] [place] [address] for consultation regarding knee pain ? RFA. [...] line ROM - Decreased knee ROM Neurologic: dowel inspector - grossly intact Reflexes - 2+ and [...] Block if good relief will refer to [facility] for cooled RFA Medications: 1. Refill Voltaren Gel today which she finds helpful Imagin. None at this time Referrals: 1. None at this time Adjunctive Therapy: 1. None at this time Follow Up: 1. prn Thank you for allowing us the opportunity to participate in Ms Haines's care. Noemi Recio MD Pain Management Center Proposal Rep of Anesthesiology [facility] [address] [address] / [facility] CC: Ernesto Valero MD [address] [place] [address] documented in this encounter Plan of Treatment Not on file documented as of this encounter Visit Diagnoses Diagnosis Bilateral chronic knee pain Pain in joint, lower leg documented in this encounter Care Teams Inspectors And Regulatory Officers Relationship Specialty Start Date End Date Alisha Walker MD [address] [place] [address] PCP - General Family Medicine 01/28/17 08/12/21 documented as of this encounter
--- OUTSIDE RECORDS SUMMARY | 2024-05-01 12:24 | XMS_ITS | Encounter Summary ---
[place] [address] Care Team Providers Care Geriatric Psychiatrist Name Role Phone Alisha Walker MD Primary Care Provider [phone] Encounter Details Date Type Department Care Team (Late st Contact Info) Description 11/18/2020 Telephone [place] [address] Laurel Levin RN Social History Tobacco Use [...] a pacemaker) on 11/20/2020 (date of procedure). Pulmonary Care Nurse: The patient was reminded that they need to have a delivery driver assistant accompany them to her procedure who will [...] No Prior to checking in at [employer], please be sure to empty your bladder. Patient confirmed understanding that if they do not follow the above their instructions, their procedure is likely to be cancelled. LAZARO Guzman documented in this encounter Plan of Treatment Not on file documented as of this encounter Visit Diagnoses Not on filedocumented in this encounter Care Teams Geriatric Psychiatrist Relationship Specialty Start Date End Date Alisha Walker MD [address] [place] [address] PCP - General Family Medicine 01/28/17 08/12/21 documented as of this encounter
--- OUTSIDE RECORDS SUMMARY | 2024-05-01 12:24 | XMS_ITS | Encounter Summary ---
[place] [address] Care Team Providers Care Blood Bank Laboratory Technologist Name Role Phone Alisha Walker MD Primary Care Provider [phone] Reason for Visit * Reason Onset Date Comments Medical Care Coordination 12/11/2020 Encounter Details Date Type Department Care Team (Late st Contact Info) Description 12/11/2020 [place]phone [place] [phone] Fernando Joshi LNA Medical Care Coordination Social [...] PM EDT Contact made with patient or factory representative as identified in contacts 1. Patient instructed to arrive at [facility] on 12/13 with their transport driver for their Genicular Nerve Block procedure. [...] the patient has been directed to the [facility] hotline for testing prior to their procedure. (route telephone note to: [facility] covid 19 nurse triage with routing [...] on filedocumented in this encounter Care Teams Blood Bank Laboratory Technologist Relationship Specialty Start Date End Date Alisha Walker MD [address] [place] [address] PCP - General Family Medicine 01/28/17 08/12/21 documented as of this encounter
--- OUTSIDE RECORDS SUMMARY | 2024-05-01 12:24 | XMS_ITS | Encounter Summary ---
[place] [address] Care Team Providers Care Pediatric Orthodontist Name Role Phone Alisha Walker MD Primary Care Provider [phone] Encounter Details Date Type Department Care Team (Late st Contact Info) Description 04/22/2021 Telephone [facility] [place] [address] Carlota Blair RN Social History Tobacco Use [...] on filedocumented in this encounter Care Teams Pediatric Orthodontist Relationship Specialty Start Date End Date Alisha Walker MD [address] [place] [address] PCP - General Family Medicine 01/28/17 08/12/21 documented as of this encounter
--- OUTSIDE RECORDS SUMMARY | 2024-05-01 12:24 | XMS_ITS | Encounter Summary ---
[place] [address] Care Team Providers Care Volcanology Teacher Name Role Phone Alisha Walker MD Primary Care Provider [phone] Encounter Details Date Type Department Care Team (Late st Contact Info) Description 12/25/2020 Telephone [place] [address] Carlota Blair RN Social History Tobacco Use [...] on filedocumented in this encounter Care Teams Volcanology Teacher Relationship Specialty Start Date End Date Alisha Walker MD [address] [place] [address] PCP - General Family Medicine 01/28/17 08/12/21 documented as of this encounter
--- OUTSIDE RECORDS SUMMARY | 2024-05-01 12:24 | XMS_ITS | Encounter Summary ---
Author Organization [facility] [place] [address] Care Team Providers Care Advanced Solutions Architect Name Role Phone Alisha Walker MD Primary Care Provider [phone] Encounter Details Date Type Department Care Team (Late st Contact Info) Description 03/20/2021 Ancillary Procedure Radiology Library at [facility] [place] [phone] Ann Leach APRN [address] [place] [address] Social History Tobacco Use Types Packs/Day Years [...] Knee (03/20/2021 12:00 AM EST) Narrative [facility] - 08/22/2021 2:20 PM EDT This exam is auto-finalizing. It's purpose is for storage only. Ann Leach APRN IMG FILM LIBRARY ORDERABLES [facility] [place], [place] documented in this encounter Visit Diagnoses Not on filedocumented in this encounter Care Teams Advanced Solutions Architect Relationship Specialty Start Date End Date Alisha Walker MD [address] [place] [address] PCP - General Family Medicine 01/28/17 08/12/21 documented as of this encounter
--- OUTSIDE RECORDS SUMMARY | 2024-05-01 12:24 | XMS_ITS | Encounter Summary ---
Author Organization [facility] [place] [address] Care Team Providers Care Brewery Pumper Name Role Phone Alisha Walker MD Primary Care Provider [phone] Encounter Details Date Type Department Care Team (Late st Contact Info) Description 11/20/2020 12:00 PM EDT Ancillary [place] [address] [facility] [place] [address] Pain Social History Tobacco Use Types Packs/Day [...] pain documented in this encounter Care Teams Brewery Pumper Relationship Specialty Start Date End Date Alisha Walker MD [address] [place] [address] PCP - General Family Medicine 01/28/17 08/12/21 documented as of this encounter
--- OUTSIDE RECORDS SUMMARY | 2024-05-01 12:24 | XMS_ITS | Encounter Summary ---
Author Organization [facility] [place] [address] Care Team Providers Care Manufacturing Software Engineer Name Role Phone Ann Leach APRN Primary Care Provider [phone] Reason for Visit * Reason Comments Establish Care B Rafael Knee 03/05/21 ([place]) * Consultation (Routine) - Closed Specialty Diagnoses / Procedures Referred By Annalee panchal Referred To Contact Orthopaedics Diagnoses Pain in right knee Unilateral primary osteoarthritis, unspecified knee BILATERAL PARTIAL KNEE REPLACEMENT 03/05/2021 -2ND OPINION Ann Leach APRN [address] [place] [address] [facility] [address] [place] [address] Referral ID Status Reason Start Date Expiration Date V isits Requested Visits Authorized [id number] Closed Consult, Test & Treat PCP Updated and/or Approved 08/04/2021 08/04/2022 12 12 Encounter Details Date Type Department Care Team (Late st Contact Info) Description 08/27/2021 8:00 AM EDT Office Visit [place] [address] Francisco Mcginnis MD [facility] [place] [address] History of total bilateral knee replacement; Chronic [...] / Not sure # People Supported 2 [facility] [place], , No, not [facility] [place]// Race [facility] A little bit [...] intervention. I did offer a referral to [facility] physical therapy but the patient is not [...] knees documented in this encounter Care Teams Manufacturing Software Engineer Relationship Specialty Start Date End Date Ann Leach APRN [address] [place] [address] PCP - General Family Medicine 08/13/21 documented as of this encounter
--- OUTSIDE RECORDS SUMMARY | 2024-05-01 12:24 | XMS_ITS | Encounter Summary ---
Author Organization [facility] [place] [address] Care Team Providers Care Doper Name Role Phone Alisha Walker MD Primary Care Provider [phone] Encounter Details Date Type Department Care Team (Latest Contact Info) Description 12/13/2020 12:30 PM EDT - 12/13/2020 1:35 PM EDT Hospital En[place] [address] Noemi Recio MD [facility] [place] [address] Primary osteoarthritis of both knees; Chronic pain [...] Do not apply heat today. {CHECK BOX SELECTION:46513} You received medication through an intravenous line to lessen the anxiety/pain of your procedure. DO NOT operate heavy or dangerous equipment/tools, or sign important papers today. Attempt to empty your bladder 4-6 hours after your procedure. {CHECK BOX SELECTION:15072} If you have diabetes, monitor your blood [...] Sincerely, Balaji Desouza MD Pain Medicine Fellow [address] [address] / [facility] CC: Alisha Walker MD [address] [place] [address] documented in this encounter Miscellaneous Notes * Op Note - Noemi Recio MD - 12/13/2020 1:15 PM EDT Pain Management Operative Note Patient Name: Ángela Haines : [id number] MR#: [id number] Case Date: 12/13/2020 Surgeon: Surgeon(s) and Role: [...] Pain Management Center Assisant Professor of Anesthesiology [facility] [address] [address] / [facility] documented in this encounter Plan of [...] nerve) documented in this encounter Care Teams Doper Relationship Specialty Start Date End Date Alisha Walker MD [address] [place] [address] PCP - General Family Medicine 01/28/17 08/12/21 documented as of this encounter
--- OUTSIDE RECORDS SUMMARY | 2024-05-01 12:25 | XMS_ITS | Encounter Summary ---
Author Organization [facility] [place] [address] Care Team Providers Care Applications Engineer Name Role Phone Og Allen MD Primary Care Provider [phone] Encounter Details Date Type Department Care Team (Latest Contact Info) Description 04/05/2015 9:51 AM EST Hospital En[place] [address] Leslie Iyer MD [facility] [place] [address] Abnormal mammogram Discharge Disposition: Home Social History [...] BI-RADS Category 2: Benign Findings * ??The [employer] and The Society of [...] unspecified documented in this encounter Care Teams Applications Engineer Relationship Specialty Start Date End Date Og Allen MD [address] [place] [address] PCP - General 01/24/14 04/23/16 documented as of this encounter
--- OUTSIDE RECORDS SUMMARY | 2024-05-01 12:25 | XMS_ITS | Encounter Summary ---
[place] [address] Care Team Providers Care Securities Broker Name Role Phone Alisha Walker MD Primary Care Provider [phone] Encounter Details Date Type Department Care Team (Late st Contact Info) Description 04/16/2017 8:37 AM EST - 04/16/2017 11:59 PM [facility] Hospital [place] [address] Kristin Lynne APRN [facility] [employer] [address] [place] [address] Encounter for screening mammogram for breast cancer [...] No mammographic evidence of malignancy. RECOMMENDATION: The [employer] and The Society of [...] Center. BIRADS CATEGORY 1: NEGATIVE Kristin Lynne CHECK EXAMINER IMG MAMMO ORDERABLE S documented in this encounter Visit Diagnoses Diagnosis Encounter for screening mammogram for breast cancer documented in this encounter Care Teams Securities Broker Relationship Specialty Start Date End Date Alisha Walker MD [address] [place] [address] PCP - General Family Medicine 01/28/17 08/12/21 documented as of this encounter
--- OUTSIDE RECORDS SUMMARY | 2024-05-01 12:25 | XMS_ITS | Encounter Summary ---
[place] [address] Care Team Providers Care Bicycle Subassembler Name Role Phone Og Allen MD Primary Care Provider Encounter Details Date Type Department Care Team (Late st Contact Info) Description 03/28/2015 9:30 AM EST - 03/28/2015 11:59 PM EST Hospital [place] [address] Kristin Lynne APRN [facility] [employer]PER[employer] [address] [place] [address] Encounter for screening mammogram for breast cancer [...] the deep central cc only Kristin Lynne VICE PRESIDENT OF MARKETING IMG MAMMO ORDERABLE S documented in this encounter Visit Diagnoses Diagnosis Encounter for screening mammogram for breast cancer documented in this encounter Care Teams Bicycle Subassembler Relationship Specialty Start Date End Date Og Allen MD [address] [place] [address] PCP - General 01/24/14 04/23/16 documented as of this encounter
--- OUTSIDE RECORDS SUMMARY | 2024-05-01 12:25 | XMS_ITS | Encounter Summary ---
[place] [address] Care Team Providers Care Rubber Cutter Name Role Phone Jean Pierre Godfrey MD Primary Care Provider Encounter Details Date Type Department Care Team (Late st Contact Info) Description 04/24/2016 1:31 PM EST - 04/24/2016 11:59 PM EST Hospital En[place] [address] Kristin Lynne APRN [facility] [employer] ARCHITECT [address] [place] [address] Encounter for screening mammogram for malignant neoplasm [...] No mammographic evidence of malignancy. RECOMMENDATION: The [employer] [employer] and The Society of [...] Center. BIRADS CATEGORY 1: NEGATIVE Kristin Lynne INSTALLATION & MAINTENANCE EXECUTIVE IMG MAMMO ORDERABLE S documented in this encounter Visit Diagnoses Diagnosis Encounter for screening mammogram for malignant neoplasm of breast Other screening mammogram documented in this encounter Care Teams Rubber Cutter Relationship Specialty Start Date End Date Jean Pierre Godfrey MD [address] [place] [address] PCP - General Internal Medicine 04/24/16 01/27/17 documented as of this encounter
--- OUTSIDE RECORDS SUMMARY | 2024-05-01 12:25 | XMS_ITS | Encounter Summary ---
Author Organization [facility] [place] [address] Care Team Providers Care Dieing Out Machine Operator Name Role Phone Og Allen MD Primary Care Provider [phone] Encounter Details Date Type Department Care Team (Late st Contact Info) Description 03/28/2015 Orders [place] [address] Leslie Iyer MD [facility] [place] [address] Abnormal mammogram Social History Tobacco Use Types [...] BI-RADS Category 2: Benign Findings * ??The [employer] and The Society of [...] unspecified documented in this encounter Care Teams Dieing Out Machine Operator Relationship Specialty Start Date End Date Og Allen MD [address] [place] [address] PCP - General 01/24/14 04/23/16 documented as of this encounter
--- OUTSIDE RECORDS SUMMARY | 2024-05-01 12:25 | XMS_ITS | Encounter Summary ---
Author Organization [facility] Address [facility] [place] [address] Care Team Providers Care Adjunct Spanish Instructor Name Role Phone Alisha Walker MD Primary Care Provider [phone] Reason for Visit * Reason Comments Skin Check * Consultation (Routine) - Closed Specialty Diagnoses / Procedures Referred By Annalee panchal Referred To Contact Dermatology Diagnoses Skin Survelliance Ann Leach APRN [address] [place] [address] [facility] Dermatology [address] [place] [address] Referral ID Status Reason Start Date Expiration Date V isits Requested Visits Authorized [id number] Closed Consult, Test & Treat Connection Center 01/28/2017 01/28/2018 1 1 Encounter Details Date Type Department Care Team (Late st Contact Info) Description 03/03/2017 1:30 PM EST Office Visit Dermatology at [facility] [address] [place] [id number] Latha Chaparro MD [facility] [place] [address] Puja Bolden PA Seborrheic keratosis; Multiple benign [...] weeks. Please contact the Dermatology clinic at [phone] if the lesion has not fully resolved [...] or character. Call if such occur. LOS: [id number] RTC in 1 year for a full [...] Reviewed and signed by Puja Bolden PA-C [facility] Patient seen in conjunction with staff schedule planning manager: Latha Chaparro MD Section of Dermatology [facility] * Latha Chaparro MD - 03/03/2017 1:30 PM EST Skin cancer examination. ISK treated with LN2. Otherwise benign exam, including SKs and benign nevi. Patient seen in conjunction with Puja (Nikkie) MEENAKSHI Bolden Signed by: LATHA CHAPARRO MD Section of Dermatology [facility] documented in this encounter Plan of Treatment Not on file documented as of this encounter Visit Diagnoses Diagnosis Seborrheic keratosis Other seborrheic keratosis Multiple benign nevi Benign neoplasm of skin, site unspecified Seborrheic keratosis, inflamed Inflamed seborrheic keratosis documented in this encounter Care Teams Adjunct Spanish Instructor Relationship Specialty Start Date End Date Alisha Walker MD [address] [place] [address] PCP - General Family Medicine 01/28/17 08/12/21 documented as of this encounter
--- OUTSIDE RECORDS SUMMARY | 2024-05-01 12:25 | XMS_ITS | Encounter Summary ---
Author Organization [facility] [place] [address] Care Team Providers Care Oracle Agile Plm Consultant Name Role Phone Og Allen MD Primary Care Provider Encounter Details Date Type Department Care Team (Latest Contact Info) Description 04/05/2015 9:52 AM EST - 04/05/2015 11:59 PM EST Hospital En[place] [address] Leslie Iyer MD [facility] DR DIAGNOSTIC [place] [address] Abnormal mammogram Discharge Disposition: Home Social History [...] BI-RADS Category 2: Benign Findings * ??The [employer] [employer] and The Society of [...] unspecified documented in this encounter Care Teams Oracle Agile Plm Consultant Relationship Specialty Start Date End Date Og Allen MD [address] [place] [address] PCP - General 01/24/14 04/23/16 documented as of this encounter
--- OUTSIDE RECORDS SUMMARY | 2024-05-01 12:26 | XMS_ITS | Encounter Summary ---
[place] [address] Care Team Providers Care Balance Staff Inspector Name Role Phone Og Allen MD Primary Care Provider [phone] Encounter Details Date Type Department Care Team (Late st Contact Info) Description 01/24/2014 2:00 PM EDT - 01/24/2014 11:59 PM EDT Hospital [place] [address] CLIN[facility], [facility], [address] [address] Kristin Lynne APRN [employer] [address] [place] [address] Discharge Disposition: Home Social History Tobacco Use [...] on filedocumented in this encounter Care Teams Balance Staff Inspector Relationship Specialty Start Date End Date Og Allen MD [address] [place] [address] PCP - General 01/24/14 04/23/16 documented as of this encounter
--- OUTSIDE RECORDS SUMMARY | 2024-05-01 12:26 | XMS_ITS | Encounter Summary ---
[place] [address] Care Team Providers Care Sprinkler Fitter Apprentice Name Role Phone Og Allen MD Primary Care Provider Encounter Details Date Type Department Care Team (Late st Contact Info) Description 10/29/2008 [place] [phone] Alexandr Baker MD Social History Tobacco Use [...] on filedocumented in this encounter Care Teams Sprinkler Fitter Apprentice Relationship Specialty Start Date End Date Og Allen MD [address] [place] [address] PCP - General 01/24/14 04/23/16 documented as of this encounter
--- OUTSIDE RECORDS SUMMARY | 2024-05-01 12:26 | XMS_ITS | Encounter Summary ---
[place] [address] Care Team Providers Care Study Specialist Name Role Phone Og Allen MD Primary Care Provider Encounter Details Date Type Department Care Team (Late st Contact Info) Description 12/06/2012 [place] [phone] Alexandr Baker MD Social History Tobacco Use [...] on filedocumented in this encounter Care Teams Study Specialist Relationship Specialty Start Date End Date Og Allen MD [address] [place] [address] PCP - General 01/24/14 04/23/16 documented as of this encounter
--- OUTSIDE RECORDS SUMMARY | 2024-05-01 12:26 | XMS_ITS | Encounter Summary ---
[place] [address] Care Team Providers Care Tier And Detonator Name Role Phone Og Allen MD Primary Care Provider Encounter Details Date Type Department Care Team (Late st Contact Info) Description 05/28/2010 [place] [address] Alexandr Baker MD Social History Tobacco Use [...] on filedocumented in this encounter Care Teams Tier And Detonator Relationship Specialty Start Date End Date Og Allen MD [address] [place] [address] PCP - General 01/24/14 04/23/16 documented as of this encounter
--- OUTSIDE RECORDS SUMMARY | 2024-05-01 12:26 | XMS_ITS | Encounter Summary ---
[place] [address] Care Team Providers Care Hair Or Beauty Salon Manager Name Role Phone Og Allen MD Primary Care Provider [phone] Encounter Details Date Type Department Care Team (Late st Contact Info) Description 10/27/2007 Orders [place] [phone] Alexandr Baker MD Social History Tobacco Use [...] on filedocumented in this encounter Care Teams Hair Or Beauty Salon Manager Relationship Specialty Start Date End Date Og Allen MD [address] [place] [address] PCP - General 01/24/14 04/23/16 documented as of this encounter
--- OUTSIDE RECORDS SUMMARY | 2024-05-01 12:26 | XMS_ITS | Encounter Summary ---
[place] [address] Care Team Providers Care Dynamite Reclaimer Name Role Phone Og Allen MD Primary Care Provider Encounter Details Date Type Department Care Team (Late st Contact Info) Description 09/10/2011 [place] [address] Alexandr Baker MD Social History Tobacco Use [...] on filedocumented in this encounter Care Teams Dynamite Reclaimer Relationship Specialty Start Date End Date Og Allen MD [address] [place] [address] PCP - General 01/24/14 04/23/16 documented as of this encounter
--- OUTSIDE RECORDS SUMMARY | 2024-05-01 12:26 | XMS_ITS | Encounter Summary ---
[place] [address] Care Team Providers Care Cupola Liner Name Role Phone Og Allen MD Primary Care Provider Encounter Details Date Type Department Care Team (Late st Contact Info) Description 08/04/2006 [place] [phone] Alexandr Baker MD Social History Tobacco Use [...] on filedocumented in this encounter Care Teams Cupola Liner Relationship Specialty Start Date End Date Og Allen MD [address] [place] [address] PCP - General 01/24/14 04/23/16 documented as of this encounter
--- OUTSIDE RECORDS SUMMARY | 2024-05-01 12:26 | XMS_ITS | Encounter Summary ---
Author Organization [facility] [place] [address] Care Team Providers Care Medicare Insurance Specialist Name Role Phone Og Allen MD Primary Care Provider Encounter Details Date Type Department Care Team (Late st Contact Info) Description 01/26/2014 External Results XRay at [address] [place] [address] Provider, Scanning Social History Tobacco Use Types [...] on filedocumented in this encounter Care Teams Medicare Insurance Specialist Relationship Specialty Start Date End Date Og Allen MD [address] [place] [address] PCP - General 01/24/14 04/23/16 documented as of this encounter
[2024-05-01 12:32] VITALS: RESP 24
[2024-05-01 13:09] LABS: BE (Venous) 2 mmol/L (-2-3); HCO3 (Venous) 26 mmol/L (23-28); O2 Sat (Venous) 88 %; TCO2 (Venous) 23 mmol/L (24-29); pCO2 (Venous) 39 mmHg (41-51); pH (Venous) 7.43 (7.31-7.41); pO2 (Venous) 51 mmHg
[2024-05-01 13:10] LABS: Abs Immature Grans 0.09 10^3/uL (0.0-0.06); Absolute Basophil Count 0.01 10^3/uL (0.0-0.2); Absolute Lymphocyte Count 1.38 10^3/uL (1.2-3.4); Absolute Monocyte Count 0.51 10^3/uL (0.1-0.8); Absolute Neutrophil Count 9.52 10^3/uL (1.2-6.7); Basophils % 0.1 %; HGB 13.2 g/dL (11.2-15.7); Immature Grans % 0.8 %; MCH 29.6 pg (27.0-33.0); MCV 90 fL (80-95); Monocytes % 4.4 %; Neutrophils % 82.7 %; Platelet Count 219 10^3/uL (130-400); RBC 4.46 10^6/uL (3.93-5.22); RDW 12.7 % (11.7-14.6); RDW-SD 42.1 fL; WBC 11.51 10^3/uL (4.4-10.8)
[2024-05-01 13:21] LABS: Anion Gap 9.6 mmol/L (3-11); BUN 23 mg/dL (7-18); CO2 26.4 mmol/L (21.0-32.0); CREATININE 1.1 mg/dL (0.55-1.02); Calcium 9.8 mg/dL (8.5-10.1); Chloride 104 mmol/L (98-107); Estimated GFR 53.39 (mL/min/1.73m2); Glucose 120 mg/dL (74-106); Potassium 3.6 mmol/L (3.5-5.1); Sodium 140 mmol/L (136-145)
[2024-05-01 14:26] VITALS: BP 134/85; PULSE 75; RESP 16; TEMP 36.9; O2SAT 95
== END 2024-05-01 14:28 | disposition home or self-care (01) ==
PROVIDERS: Emergency Provider Emergency Medicine; PCP Nurse Practitioner Family
DX: J10.1 Influenza due to other identified influenza virus with other respiratory manifestations (principal); R05.9 Cough, unspecified
CPT/HCPCS: 80048; 82805; 99283; 71046; 84484; 85025; 85610

== ENCOUNTER → 2024-06-12 12:48 | Outpatient (BNVA) | payer MEDICARE, BC, SELFPAY | PROVIDERS: PCP Nurse Practitioner Family; Referring Provider Nurse Practitioner Family; Visit Provider Nurse Practitioner Gerontology | DX: N39.46 Mixed incontinence (principal) | CPT/HCPCS: 51798; 99214 ==

== ENCOUNTER 2024-07-31 13:07 | Outpatient (REF) | payer MEDICARE, BC, SELFPAY ==
[2024-07-31 16:09] LABS: Vitamin D 25 Total 61 ng/mL (30-100)
== END 2024-07-31 13:08 | disposition home or self-care (01) ==
LOC: NCHCN 13:07
PROVIDERS: PCP Nurse Practitioner Family; Visit Provider Nurse Practitioner Family
DX: M81.0 Age-related osteoporosis without current pathological fracture (principal)
CPT/HCPCS: 82306

== ENCOUNTER 2024-10-18 01:41 | Outpatient (CLI) | payer MEDICARE, BC, SELFPAY ==
--- NOTE | 2024-10-18 07:50 | DI.RAD_ITS ---
Exam(s) XR FOOT RT COMPLETE EXAM: XR FOOT RT COMPLETE CLINICAL HISTORY: Right foot pain,m79.672. TECHNIQUE: 2D digital imaging was performed of the right foot. Three images were obtained. AP, oblique and lateral views were obtained. COMPARISON: No exams were available for comparison FINDINGS: BONES: No acute fracture is present. No bony destructive lesion is seen. There is a small plantar calcaneal spur. JOINTS: No dislocation present. There is a hallux valgus deformity. There is mild joint space narrowing of the 1st MTP joint. The joint spaces are otherwise well maintained. SOFT TISSUE: Normal. IMPRESSION: Hallux valgus deformity. Minimal degenerative changes. DATA REPOSITORY: RADIATION DOSE DELIVERED:
--- NOTE | 2024-10-18 07:50 | DI.RAD_ITS ---
Exam(s) XR FOOT LT COMPLETE EXAM: XR FOOT LT COMPLETE CLINICAL HISTORY: Left foot pain,m79.672. TECHNIQUE: 2D digital imaging was performed of the left foot. Three images were obtained. AP, oblique and lateral views were obtained. COMPARISON: No exams were available for comparison FINDINGS: BONES: No acute fracture is present. No bony destructive lesion is seen. JOINTS: No dislocation present. The joint spaces are well maintained. SOFT TISSUE: Normal. IMPRESSION: No acute abnormality. DATA REPOSITORY: RADIATION DOSE DELIVERED:
== END 2024-10-18 02:01 ==
PROVIDERS: PCP Nurse Practitioner Family; Visit Provider Podiatrist
DX: M79.672 Pain in left foot (principal); M79.671 Pain in right foot; M21.611 Bunion of right foot; M21.612 Bunion of left foot; R20.2 Paresthesia of skin; L60.0 Ingrowing nail
CPT/HCPCS: 99214; 73630

== ENCOUNTER 2024-11-07 12:50 | Outpatient (REF) | payer MEDICARE, BC, SELFPAY ==
[2024-11-07 16:05] LABS: ALT 27 U/L (14-59); AST 9 U/L (15-37); Albumin 3.8 g/dL (3.4-5.0); Alkaline Phosphatase 103 U/L (46-116); Anion Gap 8.0 mmol/L (3-11); BUN 23 mg/dL (7-18); Bilirubin, Total 0.3 mg/dL (0.2-1.0); CO2 30.0 mmol/L (21.0-32.0); Calcium 9.1 mg/dL (8.5-10.1); Calculated LDL 95 mg/dL (<100); Chloride 106 mmol/L (98-107); Cholesterol 182 mg/dL (<200); Estimated GFR 77.75 (mL/min/1.73m2); Glucose 101 mg/dL (74-106); HDL Cholesterol 51 mg/dL (>or=50); Potassium 3.9 mmol/L (3.5-5.1); Sodium 144 mmol/L (136-145); Total Protein 6.8 g/dL (6.4-8.2); Triglyceride 180 mg/dL (<150)
[2024-11-07 17:10] LABS: Hemoglobin A1C 5.7 % (<5.7)
== END 2024-11-07 12:51 | disposition home or self-care (01) ==
LOC: NCHCN 12:50
PROVIDERS: PCP Nurse Practitioner Family; Visit Provider Nurse Practitioner Family
DX: R73.03 Prediabetes (principal)
CPT/HCPCS: 80053; 80061; 83036

== ENCOUNTER 2024-12-13 15:45 | Outpatient (REF) | payer MEDICARE, BC, SELFPAY ==
--- NOTE | 2024-12-13 14:20 | PAPFT_PTH ---
PATIENT: Ángela Haines LOC: [facility] U#:[id number] AGE/SX: 74/F ROOM: RE12/13/[address]: Ophelia Artis MD : [id number] BED: DIS: 12/13/2024 SPEC #: [id number] RECD: 12/13/24 18:18 STATUS: JESSICA REQ #: [id number] DIAMANTE: 12/13/24 14:[address]: Ophelia Artis DEPT: [facility] Cytology RECD BY: Makayla Calloway ENTERED: 12/13/24 18:18 SP TYPE: PAPFT OTHR DR: Ann Leach Tissues: 1 - CX/ENDOCX FOR PAP SMEARS Procedures: PAP THIN PREP/UVM Screening HPV DNA PROBE Comments: [id number] (HPV 16 & 18/45)
== END 2024-12-13 15:46 | disposition home or self-care (01) ==
LOC: LBN 15:45
PROVIDERS: PCP Nurse Practitioner Family; Visit Provider Obstetrics & Gynecology
DX: Z12.4 Encounter for screening for malignant neoplasm of cervix (principal)
CPT/HCPCS: 88142; 87624

== ENCOUNTER 2024-12-15 02:10 | Outpatient (CLI) | payer MEDICARE, BC, SELFPAY ==
--- NOTE | 2024-12-15 08:30 | DI.MAMMO_ITS ---
Exam(s) MAMMO SCREENING EXAM: MAMMO SCREENING CLINICAL HISTORY: screening TECHNIQUE: Bilateral full field digital CC and MLO mammographic images were obtained with 3D tomosynthesis and utilizing computer aided detection (CAD). COMPARISON: Comparison is made with prior examinations. FINDINGS: Masses/Architectural Distortion: No suspicious masses or areas of architectural distortion are present. Microcalcifications: No suspicious pleomorphic-type are seen. Skin Thickening/Nipple Retraction: None. IMPRESSION: 1. No significant interval change with no specific features of malignancy noted. 2. Unless there is more urgent need, screening mammography is recommended, as per [place] [employer] guidelines. BI-RADS Category 1 - Negative Breast Density - Category C - The breast are heterogeneously dense, which may obscure small masses. Breast density Category C or D implies that the patient has dense breast tissue. Dense breast tissue can make it harder to find cancer on a mammogram. Dense breast tissue is also associated with an increased risk of breast cancer. This information about the result of the mammogram report was provided to the patient to raise their awareness. Use this report when you speak with the patient about their risks for breast cancer, which includes their family history. At that time, you may recommend additional screening tests (Ultrasound or MRI) as these tests may add significant information. A negative radiographic report should not delay biopsy if a dominant or clinically suspicious mass is present. Up to ten percent of cancers are not identified on mammography. A negative report may reinforce clinical impression. Adenosis and dense breasts may obscure an underlying neoplasm. False positive reports average 6 to 10%. Patient will receive a letter notifying them of these results.
== END 2024-12-15 02:30 ==
LOC: DI 02:10
PROVIDERS: PCP Nurse Practitioner Family; Visit Provider Obstetrics & Gynecology
DX: Z12.31 Encounter for screening mammogram for malignant neoplasm of breast (principal)
CPT/HCPCS: 77063; 77067

== ENCOUNTER → 2024-12-18 14:43 | Outpatient (BNVA) | payer MEDICARE, BC, SELFPAY | PROVIDERS: PCP Nurse Practitioner Family; Referring Provider Nurse Practitioner Family; Visit Provider Nurse Practitioner Gerontology | DX: N39.46 Mixed incontinence (principal); R39.9 Unspecified symptoms and signs involving the genitourinary system | CPT/HCPCS: 99213; 51798 ==

== ENCOUNTER → 2024-12-20 07:49 | Outpatient (BNVA) | payer MEDICARE, BC, SELFPAY | PROVIDERS: PCP Nurse Practitioner Family; Referring Provider Nurse Practitioner Family; Visit Provider Podiatrist | DX: M21.611 Bunion of right foot (principal); M21.612 Bunion of left foot; M20.41 Other hammer toe(s) (acquired), right foot; M20.42 Other hammer toe(s) (acquired), left foot; R20.2 Paresthesia of skin; G62.9 Polyneuropathy, unspecified; M79.671 Pain in right foot; M79.672 Pain in left foot | CPT/HCPCS: 99214 ==

== ENCOUNTER 2024-12-20 15:14 | Outpatient (CLI) | payer MEDICARE, BC, SELFPAY ==
[2024-12-20 10:18] LABS: Vitamin B12 764 pg/mL (193-986)
== END 2024-12-20 15:15 | disposition home or self-care (01) ==
LOC: LBO 15:14
PROVIDERS: PCP Nurse Practitioner Family; Visit Provider Podiatrist
DX: R79.89 Other specified abnormal findings of blood chemistry (principal)
CPT/HCPCS: 36415; 99214; 82607

== ENCOUNTER 2025-01-29 19:09 | Outpatient (REF) | payer MEDICARE, BC, SELFPAY ==
[2025-01-29 21:26] LABS: Abs Immature Grans 0.02 10^3/uL (0.0-0.06); HCT 40.5 % (36.0-46.0); HGB 13.1 g/dL (11.2-15.7); Immature Grans % 0.2 %; MCH 29.1 pg (27.0-33.0); MCHC 32.3 % (32.0-36.0); MCV 90 fL (80-95); MPV 11.2 fL (8.0-11.0); Platelet Count 269 10^3/uL (130-400); RBC 4.50 10^6/uL (3.93-5.22); RDW 13.1 % (11.7-14.6); RDW-SD 43.2 fL; WBC 8.96 10^3/uL (4.4-10.8)
[2025-01-29 21:29] LABS: ESR 24 mm/hr (0-30)
[2025-01-29 21:44] LABS: TSH (W/Ref FT4) 0.73 uIU/mL (0.36-3.74)
[2025-01-29 21:47] LABS: C-Reactive Protein < 0.50 mg/dL (<or=0.5)
[2025-01-31 09:46] LABS: Lyme Ab w Rflx to Lyme Confirm Negative (Negative)
[2025-01-31 13:04] LABS: Albumin 62.5 % (55.8-66.1); Albumin g/dL 4.2 g/dL (3.6-5.2); Alpha 1 g/dL 0.30 g/dL (0.15-0.40); Alpha 2 g/dL 0.70 g/dL (0.50-1.00); Beta g/dL 0.80 g/dL (0.60-1.20); Gamma g/dL 0.70 g/dL (0.60-1.60); Total Protein 6.7 g/dL (6.3-8.2)
[2025-02-02 13:42] LABS: B. miyamotoi PCR Negative (Negative); Babesia divergens/MO-1 Negative (Negative); Ehrlichia muris eauclairensis Negative (Negative)
== END 2025-01-29 19:10 | disposition home or self-care (01) ==
LOC: NCHCN 19:09
PROVIDERS: PCP Nurse Practitioner Family; Visit Provider Nurse Practitioner Family
DX: M25.50 Pain in unspecified joint (principal); G60.9 Hereditary and idiopathic neuropathy, unspecified
CPT/HCPCS: 85652; 87798; 84165; 84443; 85025; 86038; 86140; 86618

== ENCOUNTER 2025-03-05 19:50 | Emergency (ER) | payer MEDICARE, BC, SELFPAY ==
[2025-03-05 19:53] VITALS: BP 130/86; PULSE 108; RESP 18; TEMP 36.6; O2SAT 98
[2025-03-05 20:12] VITALS: BP 130/86; PULSE 108; RESP 18; TEMP 36.6; O2SAT 98
--- NOTE | 2025-03-05 20:37 | W.ED.GENAD ---
Discharge Plan Disposition Patient Disposition: Home Condition: Stable Discharge Details Clinical Impression: Bronchitis Primary Care Provider: Ann Leach ED Provider: Avery Guido Home Meds and New Rx's Prescriptions: New azithromycin 250 mg tablet See Rx Instructions .ROUTE .COMPLEX Qty: 6 0RF Rx Instructions: For 250 mg dose pack: take 500 mg today (day 1), then 250 mg for 4 days (days 2-5) Continued magnesium 250 mg tablet 500 mg PO DAILY EB-N6 DR 80-4-8-300-150 mg capsule,delayed release(DR/EC) 1 cap PO DAILY apple cider vinegar 300 mg tablet 1 mg PO DAILY ashwagandha extract 500 mg capsule 500 mg PO DAILY Moringa oleifera 500 mg capsule PO Discharge Instructions Instructions: Azithromycin (Systemic), Bronchitis, Adult ED Additional Instructions: You were seen in the emergency department for your cough for 2 weeks, your left ear is clogged with earwax, you can purchase an cvdk-xry-kltdmzz earwax removal kit, soak your ear and liquid Colace-behind the counter medicine you just have to ask the pharmacist for. Add a couple drops of hydrogen peroxide and soak that in your ear canal for 15 minutes and then irrigate with the irvr-zfb-vskauwo syringe irrigation kit with warm water. You may need to repeat this several times to clear the blockage. Your x-ray shows no pneumonia and your COVID and flu are negative, with your length the onset I think it is reasonable to start an antibiotic called azithromycin for tectorial bronchitis, please return for any emergent concerns. Stand Alone Forms: Portal Information Referrals: Ann Leach [Primary Care Provider, Medicine] Discharge Data Discharge Date/Time-TO BE ENTERED AT DEPARTURE: 03/05/25 23:05 HPI General Date/Time Provider Initiated Documentation: 03/05/25 20:28. HPI Narrative: 74 year-old female presents to ED today by POV/ambulating with a chief complaint of cold symptoms for quite some time, L ear irritation, and sore through with onset weeks ago. Quality described as dry cough, no radiation to chest pain, respiratory distress, vomiting, high fever, dizziness, diarrhea. Severity is described as mild to moderate. Palliating factors include has been taking OTCs with some symptom relief while taking. Provoking factors include nothing specific. Patient not anticoagulated. Related Data Home Medications ?Medication ?Instructions ?Recorded ?Confirmed B6 35 mg-levomefolate 3 1 cap PO DAILY 12/13/24 03/05/25 mg-mecobalam 2 tx-OGO-tmpyrnd capsule del rel (EB-N6 DR) Moringa oleifera 500 mg capsule mg PO 12/13/24 12/20/24 apple cider vinegar 300 mg tablet 1 mg PO DAILY 12/13/24 03/05/25 ashwagandha extract 500 mg capsule 500 mg PO DAILY 12/13/24 03/05/25 magnesium 250 mg tablet 500 mg PO DAILY 12/18/24 03/05/25 azithromycin 250 mg tablet See Rx Instructions PO .COMPLEX #6 03/10/25 tabs Previous Rx's ?Medication ?Instructions ?Recorded azithromycin 250 mg tablet See Rx Instructions PO .COMPLEX #6 03/10/25 tabs Allergies Allergy/AdvReac Type Severity Reaction Status Date / Time naproxen (From Aleve) AdvReac Intermediate Unknown Verified 03/05/25 20:01 acetaminophen (From Tylenol) AdvReac Unknown Unknown Verified 03/05/25 20:01 General Stated Complaint: RespSymp MAGI: 3 Review of Systems All systems reviewed & are unremarkable except as noted in HPI and below Exam Narrative Exam Narrative: GENERAL APPEARANCE: Well-nourished, non-toxic, awake and alert, atraumatic, no acute distress. SKIN: Warm, pink, dry, intact, without rashes/lesions/ulcerations. HEAD: Normocephalic, atraumatic, normal hair distribution for gender/age. EYES: Normal conjunctiva, no exudates on lids/lashes. ENT: Nares patent, no circumoral cyanosis, no facial swelling NECK: Supple, trachea midline, painless cervical ROM. LUNGS/CHEST: Lungs CTA bilaterally-no rhonchi/rales/wheezes diffusely, non-labored respirations, normal A/P diameter, symmetrical expansion, no chest wall deformity HEART (CV/PV): Regular rate and rhythm without murmur, no peripheral edema, no JVD. ABDOMEN: Soft, non-distended, no guarding. MSK: Normal ROM, no swelling/deformity to bilateral UEs or LEs, moving all extremities without weakness, no cyanosis, spine midline without tenderness, normal curvature. NEURO: Mental Status AAOx4 - alert to person, place, time, events No facial droop, no forehead involvement. Motor: No focal weakness - strength 5/5 in bilateral UEs and LEs, proximal and distal, symmetric. Sensory: sensation intact to light touch globally. Gait normal: patient ambulated without ataxia into ED room. PSYCH: euthymic, cooperative, pleasant, appropriate speech Course Vital Signs Vital signs: Vital Signs Temperature 36.6 C 03/05/25 19:53 Pulse 108 H 03/05/25 19:53 Respiratory Rate 18 03/05/25 19:53 Blood Pressure 130/86 03/05/25 19:53 Pulse Oximetry 98 03/05/25 19:53 Temperature 36.6 C 03/05/25 20:12 Pulse 108 H 03/05/25 20:12 Respiratory Rate 18 03/05/25 20:12 Respiratory Effort Normal, Non-Labored 03/05/25 20:12 Respiratory Depth Normal 03/05/25 20:12 Blood Pressure 130/86 03/05/25 20:12 Pulse Oximetry 98 03/05/25 20:12 Oxygen Delivery Method Room Air 03/05/25 20:12 Oxygen Flow Rate 0 03/05/25 20:12 Comment when taking meds 0/10 when not taking meds 10/10 03/05/25 20:12 Medical Decision Making This dictation utilizes lgkjf-rz-pjvi dictation software and may contain unedited grammatical errors. 74 year-old female presents to ED today by POV/ambulating with a chief complaint of cold symptoms for quite some time, L ear irritation, and sore through with onset weeks ago. Quality described as dry cough, no radiation to chest pain, respiratory distress, vomiting, high fever, dizziness, diarrhea. Severity is described as mild to moderate. Palliating factors include has been taking OTCs with some symptom relief while taking. Provoking factors include nothing specific. Patients' medical history: Noncontributory. Family and social history: No recent travel or sick contacts. Pertinent exam findings / vital signs include lungs CTA, benign abdomen, nontoxic and afebrile. Differential / pathologies of concern include pneumonia, bronchitis, not respiratory failure, unlikely ACS or PE has no shortness of breath or chest pain. Diagnostic studies of: -XR Chest, Respiratory PCR swab - both negative. Interventions of: -DuoNeb x1, 500mg azithromycin. ED Course/Assessment/Plan: 74-year-old female presents with weeks onset of cough, negative for COVID and flu, x-ray shows no pneumonia and she is in no respiratory distress and is nontoxic and stable vitals, reasonable to treat with azithromycin for prolonged duration of illness indicating likely bacterial source or walking pneumonia with azithromycin, counseled on returns for any emergent concerns. Findings not consistent with respiratory failure, PNA, sepsis. Disposition of Bronchitis. Patient verbalized understanding of the plan and return to ED criteria and engaged in shared decision making. Medical Records Medical records reviewed: Yes I reviewed the patient's medical records. Imaging Data Radiologic Study: Attestation: I personally reviewed and interpreted this imaging study as follows: Imaging: X-Ray Radiologist's impression: Exam: XR Chest Exam date and time: 03/05/2025 9:02 PM Age: 74 years old Clinical indication: Cough TECHNIQUE: Imaging protocol: Radiologic exam of the chest. Views: 2 views. COMPARISON: CR XR CHEST 2V PA LATERAL 05/01/2024 1:20 PM FINDINGS: Lungs: Left basilar scarring/subsegmental atelectasis. No acute infiltrates. Pleural spaces: Unremarkable. No pleural effusion. No pneumothorax. Heart/Mediastinum: Unremarkable. No cardiomegaly. Bones/joints: Unremarkable. IMPRESSION: No acute findings. Dictated and Authenticated by: Miguel Casiano MD. Lab Data Lab results reviewed: Yes I reviewed the patient's lab results. Labs: Laboratory Tests Range/Units 03/05/25 21:00 COVID-19 Source Nasopharynx SARS-CoV-2 (PCR) (Negative) Negative Influenza Type A (PCR) (Negative) Negative Influenza Type B (PCR) (Negative) Negative RSV (PCR) (Negative) Negative PFSH All Active Problems (Updated 03/05/25 @ 22:23 by GREGORY Fitzpatrick) Bronchitis (Acute) Hot flashes (Acute) Ingrown toenail of left foot (Acute) Paresthesias (Acute) Congenital bilateral pes cavus (Acute) Acquired hammertoes of both feet (Acute) Bilateral bunions (Acute) Mixed incontinence (Acute) Pain of both lower extremities due to bilateral total knee replacements (Acute) LEFT KNEE DEPO MEDROL 04/30/23 Patellar tendonitis of both knees (Acute) Tendinitis of both quadricep tendons (Acute) Neuropathy (Acute) 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) Surgical History Status post right rotator cuff repair 2009 Status post tonsillectomy late Bone spur of posterior portion of right calcaneus around 18 yo 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) Hx of hernia repair ?ventral hernia History of salpingectomy for ectopic Previous section x 2 Family History Mother Colon cancer Father Alzheimers disease Valvular heart disease Social History Smoking/Tobacco Use Status: Never Second Hand Exposure: No Smoking risk assessment performed?: Yes Alcohol Intake: never Drug use: Daily Substance use type: marijuana Details: makes edibles; CBD oil daily (patient used it for sleep, but stopped now 03/05/25) Household members: spouse 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
--- NOTE | 2025-03-05 20:45 | DI.RAD_ITS ---
Exam(s) XR CHEST 2V PA LATERAL EXAM: XR CHEST 2V PA LATERAL CLINICAL HISTORY: cough TECHNIQUE: 2D digital imaging was performed. Two views. COMPARISON: CR XR CHEST 2V PA LATERAL from 05/01/2024 FINDINGS: HEART: Normal size. Aorta: D tortuous. PULMONARY VASCULATURE: Normal. MEDIASTINUM: Unremarkable. LUNGS: Minimal linear scarring at the left costophrenic angle, otherwise clear.. PLEURAL SPACE: No pleural effusion or pneumothorax. BONE:Unremarkable for age. SOFT TISSUES: Unremarkable. IMPRESSION: No acute abnormality. The preliminary [facility] report was reviewed. DATA REPOSITORY: RADIATION DOSE DELIVERED:
[2025-03-05] MEDS: Albuterol/Ipratropium 3 ML UPD VIAL UPD (21:12)
--- NOTE | 2025-03-05 21:20 | DI.VRAD_ITS ---
PROCEDURE INFORMATION: Exam: XR Chest Exam date and time: 03/05/2025 9:02 PM Age: 74 years old Clinical indication: Cough TECHNIQUE: Imaging protocol: Radiologic exam of the chest. Views: 2 views. COMPARISON: CR XR CHEST 2V PA LATERAL 05/01/2024 1:20 PM FINDINGS: Lungs: Left basilar scarring/subsegmental atelectasis. No acute infiltrates. Pleural spaces: Unremarkable. No pleural effusion. No pneumothorax. Heart/Mediastinum: Unremarkable. No cardiomegaly. Bones/joints: Unremarkable. IMPRESSION: No acute findings. Dictated and Authenticated by: Miguel Casiano MD. Orderin Lata Varela MD
[2025-03-05 22:25] LABS: COVID-19 PCR Negative (Negative); RSV PCR Negative (Negative)
[2025-03-05] MEDS: Azithromycin 250 MG TAB 500 MG PO (22:54)
[2025-03-05 23:00] VITALS: PULSE 100; RESP 18; O2SAT 97
== END 2025-03-05 23:05 | disposition home or self-care (01) ==
PROVIDERS: Emergency Provider Physician Assistant; PCP Nurse Practitioner Family
DX: J20.9 Acute bronchitis, unspecified (principal)
CPT/HCPCS: 99283 ×2; 87637; 71046; J7620